=== PATIENT | female | born 1965 | race Caucasian/White ===

== ENCOUNTER 2024-08-17 16:13 | Inpatient (IN) | payer OTHER, SELFPAY ==
[2024-08-17] VITALS (16 sets, daily range): BP systolic 99–130; BP diastolic 61–92; BMI 27.5
--- NOTE | 2024-08-17 13:16 | ED.GENMED ---
ED Provider Triage
<Natasha Larsen CLOTH FINISHING [employer]ANGE BACK TENDER - Last Filed: 08/17/24 14:29>
-
Patient seen by provider in Triage?: Seen in Triage
Attestation: A medical screening examination has been initiated by a qualified medical provider. Based on the assessment performed at this time, it has been determined that an emergent medical condition may exist and the patient has been informed
that further medical evaluation and possible additional diagnostic testing may be needed.
HPI: 58-year-old female saw PCP 3 days ago for flulike symptoms, tested negative for COVID and flu. Has been on doxycycline 100 mg twice daily for the past 2 days for presumed pneumonia. Went to PCP for a follow-up visit, her 'oxygen levels were
low,' so she was sent here for evaluation.
Pulse ox 95% RA in triage.
2:20 p.m.
Labs back: Na 108 pt taken to room 26, NAD, remains stable.
GENERAL: Alert , in no apparent distress
EYE: No visual abnormalities.
NECK: Trachea midline
ENT: No visible abnormalities.
LUNGS: No acute respiratory distress
NEUROLOGICAL: Alert and oriented
SKIN: Skin intact. No visible changes.
MUSCULOSKELETAL: Moving extremities normally
PSYCH: Normal and appropriate interaction.
This is a medical evaluation conducted in person to initiate diagnostic evaluation and provide initial therapeutics. Please see further documentation by the treating clinician.
History of Present Illness
<Natasha Larsen CLOTH [employer] BACK TENDER - Last Filed: 08/17/24 14:29>
General
Chief Complaint: Breathing Problem
Time Seen by Provider: 08/17/24 14:39
<James Young PA-C - Last Filed: 08/19/24 11:37>
General
Source: patient
History of Present Illness
History of Present Illness:
58-year-old female with past medical history of hypertension, hyperlipidemia and recent pneumonia diagnosed by primary care provider presenting to the ER for at request of primary care provider for continued coughing, generalized weakness and
dizziness despite the medications provided. Patient still endorses a cough intermittently productive of a yellowish sputum, has not had any further fevers. Denies any history of similar. Patient does note she smokes about 1/2 pack/day and has for
at least 15+ years. No known sick contacts or recent travel. No other concerns presently
Past History
<James Young PA-C - Last Filed: 08/19/24 11:37>
Past History
ED Past Medical History: HTN and Hypercholesterolemia
ED Past Surgical History: None
Social History
Tobacco: Smoker
Alcohol: None
Drug: None
Personal:
Living: with family
Review of Systems
<James Young PA-C - Last Filed: 08/19/24 11:37>
Review of Systems
All Other Systems: ROS reviewed and negative except as documented in HPI and ROS
Phy Exam
<James Young PA-C - Last Filed: 08/19/24 11:37>
Physical Exam
Physical Exam:
GENERAL: Alert , in no apparent distress
HEAD: NCAT
EYE: clear conjunctiva
NECK: Supple
ENT: o/p clr, mmm.
CARDIAC: Regular rate and rhythm .
LUNGS: Harsh cough with rhonchorous lung sounds throughout, no acute respiratory distress
ABDOMEN: Soft, without focal tenderness, no r/g, no cvat
NEUROLOGICAL: Alert and oriented x 3, speech slow and sounds slurred. follows commands and moves all extremities
SKIN: Warm and dry, skin intact.
MUSCULOSKELETAL: No edema, well perfused.
PSYCH: Normal and appropriate interaction.
Scores
<James Young PA-C - Last Filed: 08/19/24 11:37>
Heart Failure Risk
Heart Failure Risk Score: Not Applicable
Heart Score for Chest Pain Patients
STEMI patient?: Not applicable
Withdrawal Assessment of Alcohol
Withdrawal Assessment Completed?: Not applicable
Course
<Natasha Larsen, CLOTH FIN[employer] BACK TENDER - Last Filed: 08/17/24 14:29>
Orders/Labs/Results
Orders:
Orders
08/17/24 Breakfast
Regular
At Your Request: Full Participation
Fluid Restriction: 1440 mL/day (48 oz)
08/17/24 13:19
CR Chest - 2 Views Urgent
Comment:
Reason For Exam: cough
08/17/24 13:24
Complete Blood Count/With Diff Urgent
Comprehensive Metabolic Panel Urgent
Magnesium Urgent
Comment: ADD ON
Phosphorus Urgent
Comment: ADD ON
08/17/24 14:39
Sputum Culture [Respiratory Culture/Gram Stain] Urgent
JLUIS Source: Sputum
Specimen Description:
08/17/24 14:41
Electrocardiogram (*1) Urgent
Reason for Study: Other
Other Reason for Exam: hyponatremia
EKG- Treatment ONCE
08/17/24 14:45
Potassium Chloride [KCl] 40 meq PO NOW STA
08/17/24 14:46
Add On- LAB Urgent
Tests Added?: mag, phosphorous
08/17/24 14:48
Potassium Chloride [KCl] 40 meq 0.9% Sodium Chloride 250 ml [Nss] 250 ml IV NOW
08/17/24 15:16
COVID-19 Antigen Urgent
Source: Nasal Swab
Serum Osmolality Urgent
Influenza A+B Rapid Molecular Urgent
JLUIS Source: Nasal Swab
Specimen Description:
08/17/24 15:51
Admit/Transfer Patient As Directed
Co-Sign Provider:
Level of Care: Inpatient admission
Assign to:: ICU
Physician / Group: Mulugeta Rosas
Diagnosis: Symptomatic Hyponatremia
Reason for Hospitalization: 3%NaCl
Expected length of stay greater than two midnights?: Yes
ELOS- Estimated Length of Stay in days: 3
I certify the patient meets the requirements for IP care: Yes
Potassium Chloride [KCl] 40 meq PO NOW STA
08/17/24 15:53
PRN Pain Medication Management As Directed
May give lesser potent ordered pain med per pt: Yes
preference::
Protocol:: Medication orders for pain may be administered in a
manner that supports deferring to patient preference
when the pt is:
- Requesting an ordered lesser potent pain medication.
Least to most potent pain medications are defined
as: acetaminophen < NSAID < tramadol < opioids
(morphine, oxycodone, hydromorphone).
- Requesting a lesser dose of the same medication IF
ORDERED.
- Requesting a less intrusive route of administration
if both routes are prescribed by the provider (PO <
IV).
08/17/24 15:55
Code Status As Directed
Resuscitation Status: Full Code
08/17/24 16:00
3% Sodium Chloride 250 ml [Sodium Chloride 3%] 250 ml IV ONCE
08/17/24 16:01
Magnesium Sulfate 2 Gram/50 ml [Magnesium Sulfate] 2 gram in 50 ml IV NOW
08/17/24 17:33
Acetaminophen [Tylenol] 650 mg PO Q4HPRN PRN
08/17/24 17:33
Homebirth Midwife Consult Routine
Consulting Provider: Maximilian Lester
Was physician already notified: Yes
NEPHROLOGY CONSULT Routine
Consulting Provider: Prosper Bae
Was physician already notified: Yes
Activity As Directed
Activity Level: Out of Bed-Early Mobility
With Assistance
Bladder Scan As Directed
Follow Bladder Retention/Intermittent Cath Algorithm?: Yes
PRN if no void in __ hours: 6
Frequency: Per Retention Algorithm
If Bladder Scan Result >: 400
then:: Straight cath
I&O [Intake/ Output] As Directed
Frequency: q12h
Straight Cath As Directed
Frequency: Per Retention Algorithm
Additional Instructions: straight cath as needed per acute urinary retention algorithm for 24 hrs
Additional Instructions: for bladder scan greater than 400 mL
Vital Signs As Directed
Frequency: Per unit guidelines
Weight As Directed
Frequency: Daily
Rx Incentive Spirometry [RESP] Routine
Frequency: q1h while awake
Rx Pep / Acapela [RESP] Routine
Smoking Cessation Counseling [RESP] Routine
DX Deep Vein Thrombosis Video Routine
08/17/24 18:00
Atorvastatin [Lipitor] 10 mg PO QPM
Enoxaparin Sodium [Lovenox] 40 mg SC QPM
LevoFLOXacin [Levaquin] 500 mg PO QPM
08/17/24 20:00
Atenolol [Tenormin] 50 mg PO BID
08/17/24 20:43
Urinalysis Reflex To Culture Urgent
Date Specimen was Collected: 08/17/24
Time Specimen was Collected: 20:33
Urine Osmolality Random [Osmolality, Random Urine] Urgent
Date Specimen was Collected: 08/17/24
Time Specimen was Collected: 20:33
Urine Sodium Urgent
Date Specimen was Collected: 08/17/24
Time Specimen was Collected: 20:33
Legionella Urinary Antigen Urgent
JLUIS Source: Urine
Specimen Description:
08/18/[address] Chest W/o Iv Contrast Routine
Reason For Exam: cough, hyponatremia, smoker
08/18/24 04:08
Complete Blood Count/No Diff IN AM
Cortisol, Random IN AM
TSH Reflex To Free T4 IN AM
08/18/24 08:00
Amlodipine [Norvasc] 10 mg PO DAILY
Lisinopril [Zestril] 40 mg PO DAILY
Abnormal Lab Results
08/17/24 08/17/24
13:24 15:16
WBC 13.3 H 10^3/uL
(4.8-10.8)
MCH 32.3 H pg
(27.0-31.0)
MCHC 38.7 H g/dL
(33.0-37.0)
RDW 11.2 L %
(11.5-14.5)
Abs Immat Gran (auto) 0.1 H 10^3/uL
(0-0.05)
Absolute Neuts (auto) 10.4 H 10^3/uL
(1.4-6.5)
Absolute Lymphs (auto) 1.0 L 10^3/uL
(1.2-3.4)
Absolute Monos (auto) 1.8 H 10^3/uL
(0.1-0.6)
Immature Gran % 0.6 H %
(0-0.5)
Neutrophils % 78.2 H %
(42.2-75.2)
Lymphocytes % 7.4 L %
(20.5-51.1)
Monocytes % 13.4 H %
(1.7-9.3)
Sodium 108 L* mmol/L
(135-145)
Potassium 2.6 L* mmol/L
(3.5-5.1)
Chloride 64 L mmol/L
(98-107)
Carbon Dioxide 34 H mmol/L
(22-30)
Glucose 134 H mg/dl
(70-99)
Serum Osmolality 233 L mOsm/kg
(275-300)
Magnesium 1.5 L mg/dl
(1.6-2.3)
AST 39 H U/L
(14-36)
ALT 44 H U/L
(0-35)
01/13/25 13:24
08/17/24 13:24
Vital Signs
Initial and Last Documented VS:
Initial Vital Signs
Temp Pulse Resp BP Pulse Ox
97.4 F 74 20 111/64 95
08/17/24 13:06 08/17/24 13:06 08/17/24 13:06 08/17/24 13:06 08/17/24 13:06
Last Documented Vital Signs
Temp Pulse Resp BP Pulse Ox
98.4 F 74 18 123/88 98
08/19/24 07:01 08/19/24 11:36 08/19/24 11:36 08/19/24 08:36 08/19/24 11:36
<James Young PA-C - Last Filed: 08/19/24 11:37>
Orders/Labs/Results
Orders:
Orders
08/17/24 Breakfast
Regular
At Your Request: Full Participation
Fluid Restriction: 1440 mL/day (48 oz)
08/17/24 13:19
CR Chest - 2 Views Urgent
Comment:
Reason For Exam: cough
08/17/24 13:24
Complete Blood Count/With Diff Urgent
Comprehensive Metabolic Panel Urgent
Magnesium Urgent
Comment: ADD ON
Phosphorus Urgent
Comment: ADD ON
08/17/24 14:39
Sputum Culture [Respiratory Culture/Gram Stain] Urgent
JLUIS Source: Sputum
Specimen Description:
08/17/24 14:41
Electrocardiogram (*1) Urgent
Reason for Study: Other
Other Reason for Exam: hyponatremia
EKG- Treatment ONCE
08/17/24 14:45
Potassium Chloride [KCl] 40 meq PO NOW STA
08/17/24 14:46
Add On- LAB Urgent
Tests Added?: mag, phosphorous
08/17/24 14:48
Potassium Chloride [KCl] 40 meq 0.9% Sodium Chloride 250 ml [Nss] 250 ml IV NOW
08/17/24 15:16
COVID-19 Antigen Urgent
Source: Nasal Swab
Serum Osmolality Urgent
Influenza A+B Rapid Molecular Urgent
JLUIS Source: Nasal Swab
Specimen Description:
08/17/24 15:51
Admit/Transfer Patient As Directed
Co-Sign Provider:
Level of Care: Inpatient admission
Assign to:: ICU
Physician / Group: Mulugeta Rosas
Diagnosis: Symptomatic Hyponatremia
Reason for Hospitalization: 3%NaCl
Expected length of stay greater than two midnights?: Yes
ELOS- Estimated Length of Stay in days: 3
I certify the patient meets the requirements for IP care: Yes
Potassium Chloride [KCl] 40 meq PO NOW STA
08/17/24 15:53
PRN Pain Medication Management As Directed
May give lesser potent ordered pain med per pt: Yes
preference::
Protocol:: Medication orders for pain may be administered in a
manner that supports deferring to patient preference
when the pt is:
- Requesting an ordered lesser potent pain medication.
Least to most potent pain medications are defined
as: acetaminophen < NSAID < tramadol < opioids
(morphine, oxycodone, hydromorphone).
- Requesting a lesser dose of the same medication IF
ORDERED.
- Requesting a less intrusive route of administration
if both routes are prescribed by the provider (PO <
IV).
08/17/24 15:55
Code Status As Directed
Resuscitation Status: Full Code
08/17/24 16:00
3% Sodium Chloride 250 ml [Sodium Chloride 3%] 250 ml IV ONCE
08/17/24 16:01
Magnesium Sulfate 2 Gram/50 ml [Magnesium Sulfate] 2 gram in 50 ml IV NOW
08/17/24 17:33
Acetaminophen [Tylenol] 650 mg PO Q4HPRN PRN
08/17/24 17:33
Homebirth Midwife Consult Routine
Consulting Provider: Maximilian Lester
Was physician already notified: Yes
NEPHROLOGY CONSULT Routine
Consulting Provider: Prosper Bae
Was physician already notified: Yes
Activity As Directed
Activity Level: Out of Bed-Early Mobility
With Assistance
Bladder Scan As Directed
Follow Bladder Retention/Intermittent Cath Algorithm?: Yes
PRN if no void in __ hours: 6
Frequency: Per Retention Algorithm
If Bladder Scan Result >: 400
then:: Straight cath
I&O [Intake/ Output] As Directed
Frequency: q12h
Straight Cath As Directed
Frequency: Per Retention Algorithm
Additional Instructions: straight cath as needed per acute urinary retention algorithm for 24 hrs
Additional Instructions: for bladder scan greater than 400 mL
Vital Signs As Directed
Frequency: Per unit guidelines
Weight As Directed
Frequency: Daily
Rx Incentive Spirometry [RESP] Routine
Frequency: q1h while awake
Rx Pep / Acapela [RESP] Routine
Smoking Cessation Counseling [RESP] Routine
DX Deep Vein Thrombosis Video Routine
08/17/24 18:00
Atorvastatin [Lipitor] 10 mg PO QPM
Enoxaparin Sodium [Lovenox] 40 mg SC QPM
LevoFLOXacin [Levaquin] 500 mg PO QPM
08/17/24 20:00
Atenolol [Tenormin] 50 mg PO BID
08/17/24 20:43
Urinalysis Reflex To Culture Urgent
Date Specimen was Collected: 08/17/24
Time Specimen was Collected: 20:33
Urine Osmolality Random [Osmolality, Random Urine] Urgent
Date Specimen was Collected: 08/17/24
Time Specimen was Collected: 20:33
Urine Sodium Urgent
Date Specimen was Collected: 08/17/24
Time Specimen was Collected: 20:33
Legionella Urinary Antigen Urgent
JLUIS Source: Urine
Specimen Description:
08/18/[address] Chest W/o Iv Contrast Routine
Reason For Exam: cough, hyponatremia, smoker
08/18/24 04:08
Complete Blood Count/No Diff IN AM
Cortisol, Random IN AM
TSH Reflex To Free T4 IN AM
08/18/24 08:00
Amlodipine [Norvasc] 10 mg PO DAILY
Lisinopril [Zestril] 40 mg PO DAILY
Abnormal Lab Results
08/17/24 08/17/24
13:24 15:16
WBC 13.3 H 10^3/uL
(4.8-10.8)
MCH 32.3 H pg
(27.0-31.0)
MCHC 38.7 H g/dL
(33.0-37.0)
RDW 11.2 L %
(11.5-14.5)
Abs Immat Gran (auto) 0.1 H 10^3/uL
(0-0.05)
Absolute Neuts (auto) 10.4 H 10^3/uL
(1.4-6.5)
Absolute Lymphs (auto) 1.0 L 10^3/uL
(1.2-3.4)
Absolute Monos (auto) 1.8 H 10^3/uL
(0.1-0.6)
Immature Gran % 0.6 H %
(0-0.5)
Neutrophils % 78.2 H %
(42.2-75.2)
Lymphocytes % 7.4 L %
(20.5-51.1)
Monocytes % 13.4 H %
(1.7-9.3)
Sodium 108 L* mmol/L
(135-145)
Potassium 2.6 L* mmol/L
(3.5-5.1)
Chloride 64 L mmol/L
(98-107)
Carbon Dioxide 34 H mmol/L
(22-30)
Glucose 134 H mg/dl
(70-99)
Serum Osmolality 233 L mOsm/kg
(275-300)
Magnesium 1.5 L mg/dl
(1.6-2.3)
AST 39 H U/L
(14-36)
ALT 44 H U/L
(0-35)
08/17/24 13:24
08/17/24 13:24
Vital Signs
Initial and Last Documented VS:
Initial Vital Signs
Temp Pulse Resp BP Pulse Ox
97.4 F 74 20 111/64 95
08/17/24 13:06 08/17/24 13:06 08/17/24 13:06 08/17/24 13:06 08/17/24 13:06
Last Documented Vital Signs
Temp Pulse Resp BP Pulse Ox
98.4 F 74 18 123/88 98
08/19/24 07:01 08/19/24 11:36 08/19/24 11:36 08/19/24 08:36 08/19/24 11:36
<Prosper Khan, - Last Filed: 08/18/24 10:03>
Orders/Labs/Results
Orders:
Orders
08/17/24 Breakfast
Regular
At Your Request: Full Participation
Fluid Restriction: 1440 mL/day (48 oz)
08/17/24 13:19
CR Chest - 2 Views Urgent
Comment:
Reason For Exam: cough
08/17/24 13:24
Complete Blood Count/With Diff Urgent
Comprehensive Metabolic Panel Urgent
Magnesium Urgent
Comment: ADD ON
Phosphorus Urgent
Comment: ADD ON
08/17/24 14:39
Sputum Culture [Respiratory Culture/Gram Stain] Urgent
JLUIS Source: Sputum
Specimen Description:
08/17/24 14:41
Electrocardiogram (*1) Urgent
Reason for Study: Other
Other Reason for Exam: hyponatremia
EKG- Treatment ONCE
08/17/24 14:45
Potassium Chloride [KCl] 40 meq PO NOW STA
08/17/24 14:46
Add On- LAB Urgent
Tests Added?: mag, phosphorous
08/17/24 14:48
Potassium Chloride [KCl] 40 meq 0.9% Sodium Chloride 250 ml [Nss] 250 ml IV NOW
08/17/24 15:16
COVID-19 Antigen Urgent
Source: Nasal Swab
Serum Osmolality Urgent
Influenza A+B Rapid Molecular Urgent
JLUIS Source: Nasal Swab
Specimen Description:
08/17/24 15:51
Admit/Transfer Patient As Directed
Co-Sign Provider:
Level of Care: Inpatient admission
Assign to:: ICU
Physician / Group: Mulugeta Rosas
Diagnosis: Symptomatic Hyponatremia
Reason for Hospitalization: 3%NaCl
Expected length of stay greater than two midnights?: Yes
ELOS- Estimated Length of Stay in days: 3
I certify the patient meets the requirements for IP care: Yes
Potassium Chloride [KCl] 40 meq PO NOW STA
08/17/24 15:53
PRN Pain Medication Management As Directed
May give lesser potent ordered pain med per pt: Yes
preference::
Protocol:: Medication orders for pain may be administered in a
manner that supports deferring to patient preference
when the pt is:
- Requesting an ordered lesser potent pain medication.
Least to most potent pain medications are defined
as: acetaminophen < NSAID < tramadol < opioids
(morphine, oxycodone, hydromorphone).
- Requesting a lesser dose of the same medication IF
ORDERED.
- Requesting a less intrusive route of administration
if both routes are prescribed by the provider (PO <
IV).
08/17/24 15:55
Code Status As Directed
Resuscitation Status: Full Code
08/17/24 16:00
3% Sodium Chloride 250 ml [Sodium Chloride 3%] 250 ml IV ONCE
08/17/24 16:01
Magnesium Sulfate 2 Gram/50 ml [Magnesium Sulfate] 2 gram in 50 ml IV NOW
08/17/24 17:33
Acetaminophen [Tylenol] 650 mg PO Q4HPRN PRN
08/17/24 17:33
Homebirth Midwife Consult Routine
Consulting Provider: Maximilian Lester
Was physician already notified: Yes
NEPHROLOGY CONSULT Routine
Consulting Provider: Prosper Bae
Was physician already notified: Yes
Activity As Directed
Activity Level: Out of Bed-Early Mobility
With Assistance
Bladder Scan As Directed
Follow Bladder Retention/Intermittent Cath Algorithm?: Yes
PRN if no void in __ hours: 6
Frequency: Per Retention Algorithm
If Bladder Scan Result >: 400
then:: Straight cath
I&O [Intake/ Output] As Directed
Frequency: q12h
Straight Cath As Directed
Frequency: Per Retention Algorithm
Additional Instructions: straight cath as needed per acute urinary retention algorithm for 24 hrs
Additional Instructions: for bladder scan greater than 400 mL
Vital Signs As Directed
Frequency: Per unit guidelines
Weight As Directed
Frequency: Daily
Rx Incentive Spirometry [RESP] Routine
Frequency: q1h while awake
Rx Pep / Acapela [RESP] Routine
Smoking Cessation Counseling [RESP] Routine
DX Deep Vein Thrombosis Video Routine
08/17/24 18:00
Atorvastatin [Lipitor] 10 mg PO QPM
Enoxaparin Sodium [Lovenox] 40 mg SC QPM
LevoFLOXacin [Levaquin] 500 mg PO QPM
08/17/24 20:00
Atenolol [Tenormin] 50 mg PO BID
08/17/24 20:43
Urinalysis Reflex To Culture Urgent
Date Specimen was Collected: 08/17/24
Time Specimen was Collected: 20:33
Urine Osmolality Random [Osmolality, Random Urine] Urgent
Date Specimen was Collected: 08/17/24
Time Specimen was Collected: 20:33
Urine Sodium Urgent
Date Specimen was Collected: 08/17/24
Time Specimen was Collected: 20:33
Legionella Urinary Antigen Urgent
JLUIS Source: Urine
Specimen Description:
08/18/[address] Chest W/o Iv Contrast Routine
Reason For Exam: cough, hyponatremia, smoker
08/18/24 04:08
Complete Blood Count/No Diff IN AM
Cortisol, Random IN AM
TSH Reflex To Free T4 IN AM
08/18/24 08:00
Amlodipine [Norvasc] 10 mg PO DAILY
Lisinopril [Zestril] 40 mg PO DAILY
Abnormal Lab Results
08/17/24 08/17/24
13:24 15:16
WBC 13.3 H 10^3/uL
(4.8-10.8)
MCH 32.3 H pg
(27.0-31.0)
MCHC 38.7 H g/dL
(33.0-37.0)
RDW 11.2 L %
(11.5-14.5)
Abs Immat Gran (auto) 0.1 H 10^3/uL
(0-0.05)
Absolute Neuts (auto) 10.4 H 10^3/uL
(1.4-6.5)
Absolute Lymphs (auto) 1.0 L 10^3/uL
(1.2-3.4)
Absolute Monos (auto) 1.8 H 10^3/uL
(0.1-0.6)
Immature Gran % 0.6 H %
(0-0.5)
Neutrophils % 78.2 H %
(42.2-75.2)
Lymphocytes % 7.4 L %
(20.5-51.1)
Monocytes % 13.4 H %
(1.7-9.3)
Sodium 108 L* mmol/L
(135-145)
Potassium 2.6 L* mmol/L
(3.5-5.1)
Chloride 64 L mmol/L
(98-107)
Carbon Dioxide 34 H mmol/L
(22-30)
Glucose 134 H mg/dl
(70-99)
Serum Osmolality 233 L mOsm/kg
(275-300)
Magnesium 1.5 L mg/dl
(1.6-2.3)
AST 39 H U/L
(14-36)
ALT 44 H U/L
(0-35)
08/17/24 13:24
08/17/24 13:24
Vital Signs
Initial and Last Documented VS:
Initial Vital Signs
Temp Pulse Resp BP Pulse Ox
97.4 F 74 20 111/64 95
08/17/24 13:06 08/17/24 13:06 08/17/24 13:06 08/17/24 13:06 08/17/24 13:06
Last Documented Vital Signs
Temp Pulse Resp BP Pulse Ox
98.4 F 74 18 123/88 98
08/19/24 07:01 08/19/24 11:36 08/19/24 11:36 08/19/24 08:36 08/19/24 11:36
<James Young PA-C - Last Filed: 08/19/24 11:37>
MDM/Problems Addressed
Differential Diagnosis Includes:
Patient has hyponatremia from labs ordered while in triage. SIADH versus malignancy versus infectious etiology versus medication interaction as patient is on hydrochlorothiazide
MDM/Problems Addressed:
58-year-old female presenting to the ER for evaluation of persistent cough and flulike symptoms x 1 week, no improvement with antibiotics and medications found today to have severe hyponatremia and hypokalemia while in triage. I added labs
including urine sodium, serum osmolality, Legionella antigen, sputum culture, COVID and flu testing. Will consult with nephrology for initiation of hypertonic saline. Will notify specialist team for admission.
<James Young PA-C - Last Filed: 08/19/24 11:37>
*Radiology
Radiology exam reviewed: radiology read reviewed
*Pulse Oximetry
Patient hypoxic: no
*EKG
Interpreted by ED Provider?: Yes
Heart Rate: 67
Rate: normal
Rhythm: sinus and PVC's
Interval: first degree heart block
Ischemia: T-wave inversion (Diffuse T wave inversions)
*It Web Development Consultant Interpretation
Rate: normal
Rhythm: sinus
*Critical Care Note
Total Time (30-74mins, 75-104mins- exclusive of procedures): 34
comment:
Critical care statement: A total of 34 minutes of critical care time was provided for this patient. This includes management of unstable vital signs, evaluation of the patient at bedside, reviewing the patient's pertinent medical records, discussion
with consultants, review of old EKGs and review of pertinent medical records. This time with separate from time utilized to perform the aforementioned documented procedures
<James Young PA-C - Last Filed: 08/19/24 11:37>
Patient Management
Discussion with other providers: Hospitalist and Teamsite Developer
Escalation/DeEscalation of care consider admission/obs:
[facility] Outcomes Liaison recommends 3% normal saline at 20 mL/h. They will come to the ER to see the patient. Hospitalist team accepts for continued evaluation and treatment
ED Attending Note
<Natasha Larsen NP - Last Filed: 08/17/24 14:29>
-
Portions of this chart may have been created with voice recognition software.� Occasional wrong word or��sound alike� substitutions may have occurred due to the inherent limitations of voice recognition software.
<Prosper Khan DO - Last Filed: 08/18/24 10:03>
ED Attending Note
I performed the substantive portion of visit, reviewed & personally made and approve the management plan that is documented in note by myself or SHIREEN.: Yes
ED Attending Note:
Profond hyponatremia. check urine NA/osm. consult renal. I did discss the case with renal. admit to ICU. 3%NSS
Discharge Plan
Departure
Patient Disposition: Admit
Date of Disposition: 08/17/24
Time of Disposition: 15:20
Presentation/result/management discussed w/ accepting MD/DO: Hospitalist
Discharge Problem:
Acute hyponatremia, Acute hypokalemia, Cough
Interventions
Interventions:
*Risk Screen - Suicide Last Done: 08/17/24 13:06
*General Assessment Last Done: 08/17/24 13:06
*Neglect/Abuse Screening Last Done: 08/17/24 13:06
ED- Fall Risk Assessment Last Done: 08/17/24 17:45
*ED COVID-19 Vaccine History Last Done: 08/17/24 17:43
*Nursing Disposition Last Done: 08/17/24 17:45
ED- Cardiac Assessment Last Done: 08/17/24 15:29
ED- Pulmonary Assessment Last Done: 08/17/24 15:29
Discharge Date and Time
Discharge Date/Time: 08/17/24 17:55
[2024-08-17 14:21] LABS: ALT (SGPT) 44 U/L (0-35); AST (SGOT) 39 U/L (14-36); Albumin 4.1 g/dl (3.5-5.0); Alkaline Phosphatase 82 U/L (38-126); Blood Urea Nitrogen 17 mg/dl (7-17); Calcium 9.6 mg/dl (8.4-10.2); Carbon Dioxide 34 mmol/L (22-30); Chloride 64 mmol/L (98-107); Glucose 134 mg/dl (70-99); Potassium 2.6 mmol/L (3.5-5.1); Sodium 108 mmol/L (135-145); Total Bilirubin 1.3 mg/dl (0.2-1.3); Total Protein 6.5 g/dl (6.3-8.2); eGFR > 60.00
[2024-08-17 14:55] LABS: % Basophils 0.2 % (0-2); % Eosinophils 0.2 % (0-6); % Immature Granulocytes 0.6 % (0-0.5); % Lymphocytes 7.4 % (20.5-51.1); % Monocytes 13.4 % (1.7-9.3); % Neutrophils 78.2 % (42.2-75.2); Absolute Immature Granulocytes 0.1 10^3/uL (0-0.05); Absolute Monocytes 1.8 10^3/uL (0.1-0.6); Absolute Neutrophils 10.4 10^3/uL (1.4-6.5); Hemoglobin 15.4 g/dL (12.0-16.0); Mean Corpuscular Hgb 32.3 pg (27.0-31.0); Mean Corpuscular Volume 83.4 fL (81.0-99.0); Mean Platelet Volume 9.1 fL (7.4-10.4); Nucleated Red Blood Cells % 0 %; Platelet Count 278 10^3/uL (130-400); Red Blood Cell Count 4.77 10^6/uL (4.20-5.40); Red Cell Dist. Width 11.2 % (11.5-14.5); White Blood Cell Count 13.3 10^3/uL (4.8-10.8)
[2024-08-17 14:56] LABS: Hematocrit 39.8 % (37.0-47.0); Mean Corp Hgb Conc. 38.7 g/dL (33.0-37.0)
[2024-08-17] MEDS: KCL 40 MEQ PO ×2 (15:31→20:38)
[2024-08-17] MEDS: KCL 270 MEQ IV (15:32)
[2024-08-17 15:41] LABS: Magnesium 1.5 mg/dl (1.6-2.3); Phosphorus 3.7 mg/dl (2.5-4.5)
[2024-08-17] MEDS: SODIUM CHLORIDE 3% 250 IV (15:50)
--- NOTE | 2024-08-17 15:50 | HPS.HSE ---
Family Physician
-
Family Physician:
Chief Complaint
-
Cough and Confusion
History of Present Illness
Patient is a 58 y/o female past medical history of hypertension, and hyperlipidemia who presents with persistent cough and confusion. Additional history is obtained from patient's at the bedside. Patient has been feeling unwell for the
past week. She reports notes cough that very moist sounding but only bringing up minimal mucus. She reports very poor appetite over the past week. She saw her PCP on who prescribed her antibiotics, steroids, cough medicine, and an
albuterol inhaler. Despite these interventions she continue with cough. has noted increasing confusion over the weekend. He notes patient has been complaining of dizziness and had a fall yesterday.
Medical History
Past Medical History
Past Medical History: Reports Other
Additional Past Medical History:
Essential Hypertension
Hyperlipidemia
Past Surgical History: Reports None
Social History
Tobacco: Smoker (1/2 PPD since age 16)
Alcohol: Daily (Glass of wine nightly)
Family History
Family History: Not pertinent
Allergies / Home Medications
Allergies reflects when Allergies were last updated in [facility].
Home Medications with original date entered in [facility]
Allergy/Medication List:
Allergies
Allergy/AdvReac Type Severity Reaction Status Date / Time
No Known Allergies Allergy Unverified 08/17/24 13:12
Home Medications
albuterol sulfate 90 mcg/actuation aerosol inhaler 2 puff inhalation R Q4HPRN PRN sob 08/17/24
amlodipine 10 mg tablet (Norvasc) 10 mg PO DAILY 08/17/24
atenolol 50 mg tablet 50 mg PO BID 08/17/24
atorvastatin 10 mg tablet (Lipitor) 10 mg PO QPM 08/17/24
codeine 10 mg-guaifenesin 100 mg/5 mL oral liquid 5 ml PO Q6HPRN PRN cough 08/17/24
doxycycline hyclate 100 mg capsule 100 mg PO QPM 08/17/24
hydrochlorothiazide 25 mg tablet 25 mg PO DAILY 08/17/24
lisinopril 40 mg tablet 40 mg PO DAILY 08/17/24
prednisone 10 mg tablet 40 mg PO DIRECTED 08/17/24
Review of Systems
-
A 12 point ROS was completed and negative except as noted: Yes
Constitutional: Denies Fever or Chills
Respiratory: Reports See HPI
Cardiac: Denies Chest Pain
Physical Exam
Vital Signs
Vital Signs
Temp Pulse Resp BP Pulse Ox
97.4 F 74 20 111/64 95
08/17/24 13:06 08/17/24 13:06 08/17/24 13:06 08/17/24 13:06 08/17/24 13:06
Physical Exam
General: Comfortable and Conversant (Sleep is slow which states is not her norm)
HEENT: Anicteric and Other (Mask covering nose and mouth)
Respiratory: Wheezes, Rhonchi and Non Labored Respirations
Cardiac: S1/S2 and Regular Rhythm
GI: Soft and Non Tender
Rectal: Deferred by Provider
Musculoskeletal: No Clubbing, No Cyanosis and No Edema
Skin: Warm and Dry
Neuro: Awake, Alert, Oriented, No Motor Deficits and Other (Speech is low but not slurred)
Psych: Calm
Laboratory Results
-
08/17/24 13:24
08/17/24 13:24
Laboratory Results
Total Bilirubin 1.3 mg/dl (0.2-1.3) 08/17/24 13:24
AST 39 U/L (14-36) H 08/17/24 13:24
ALT 44 U/L (0-35) H 08/17/24 13:24
Alkaline Phosphatase 82 U/L (38-126) 08/17/24 13:24
Data Reviewed
-
Diagnostic Radiology: Report Reviewed by me
Lab Data: Labs Reviewed by me
Impression/Plan
-
Acute/Severe Symptomatic Hyponatremia, likely related to HCTZ and possibly SIADH
-Admit to ICU for close monitoring and frequent blood work
-Consult Nephrology
-Continue 3% NaCl
-Check sodium q4h
-Continue fluid restriction
Acute/Severe Hypokalemia with Mild Hypomagnesemia
-Replace potassium and magnesium
-Recheck potassium later this evening
Acute Bronchitis
-Check CT scan to evaluate for possible pneumonia and possible underlying lung pathology
-Start Levaquin
-Continue albuterol
-Continue prednisone
-Continue Mucinex
Essential Hypertension
-Hold HCTZ
-Continue amlodipine, atenolol and lisinopril with hold parameters
Hyperlipidemia
-Continue atorvastatin
Tobacco Use Disorder
-Continue nicotine patch
-Encourage smoking cessation
DVT proph: Lovenox
Code Status: Full Code
--- NOTE | 2024-08-17 15:51 | W.PN.UPDATE ---
Update Note
Progress Note Update
I saw and examined the patient.
The ENGINEERING DRAWINGS CHECKER or PA's note was reviewed and I agree with the note.
Comment:
Ms. Santos is a 58-year-old female with medical history of hypertension, hyperlipidemia, longtime current smoker, and recent pneumonia (being treated with doxycycline) who presented from her PCP office due to hypoxia. She reports flulike symptoms
including productive cough for the past 3 days, and was started on doxycycline for presumptive pneumonia 2 days ago. She reportedly tested negative for COVID at that time. Her , who is at bedside, reports that her mentation has been
abnormal since her symptom onset and also reports the patient has had difficulty walking for the past 2 days. 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 However, patient's
reports that her hearing seems worse than usual over the past few days.
In the ED, she was normotensive and afebrile, and saturating appropriately on room air. Chest x-ray showed no evidence of pneumonia or other acute abnormalities. However, labs were significant for sodium of 108, potassium 2.6, WBC of 13,000. She
has been admitted for further evaluation and management of symptomatic hyponatremia.
Gen-AAOx3, NAD
HEENT-NC, AT, anicteric, clear oral mm
Neck-supple
CV-reg, no M, +S1/S2
Lungs-rhonchorous breath sounds B/L
Abd-soft, NT, ND
Musculoskeletal-no edema, no deformity
Skin-warm and dry
Neuro-mild dysarthria, no asymmetry
Psych-calm, cooperative
Symptomatic hyponatremia:
-Initial sodium 108 with symptoms of mild dysarthria and ambulatory dysfunction
-Discussed case with nephrology, starting patient on 3% NS
-Frequent BMP checks to monitor sodium levels, avoid rapid correction
-Hold home HCTZ and advised her to avoid further use of HCTZ
Upper respiratory infection:
-Patient subjectively congested, productive cough, treated with doxycycline for presumed pneumonia for 2 days prior to arrival
-No evidence of pneumonia on chest x-ray, will check CT chest especially considering history of smoking
-Start empirically on Levaquin considering possibility of Legionella, check urine Legionella antigen
-Collect sputum culture
Hypokalemia:
-We have p.o. and IV potassium supplementation
-Monitor potassium levels with BMP
CODE STATUS: Full code
--- NOTE | 2024-08-17 16:12 | CON.INTV ---
Consultation
Consultation Request
Date/Time Consultation Requested: 08/17/24
Date/Time Consultation Performed: 08/17/24
Requesting Provider: Jessica Perez
Performing Provider: Yessica Stacy MD
Reason for Consultation: Hypokalemia and Severe hyponatreami
Medical History
-
History of Present Illness:
The patient is a 58-year-old female with a PMH of HTN, HL and recent diagnosis of pneumonia (being treated with doxycycline). The patient presented to ER from her PCP office due to coughing and wheezing.She reported having productive cough for the
past 3 days, and was started on doxycycline for presumptive pneumonia 2 days ago.Her COVID test resulted negative. Her CBC showed leucocytosis and CMP result was significant for hyponatremia at 108 and hypokalemia at 2.6. Additionally, her Mg level
was found low at 1.5 and liver enzymes were mildly elevated. She was started on 3% of hypertonic saline IV, K 40 meq oral+40 meq IV and Mg 2 gram IV. Her chest X ray was not significant, Legionella urinary antigen test was ordered. She was
consulted to the hair colorist for a further evaluation and management of her severe hyponatremia.
Past Medical History
Past Medical History: HTN and Hypercholesterolemia
Past Surgical History: None
Social History
Tobacco: Smoker (1/2 PPD daily )
Alcohol: Daily (Glass of wine )
Living: With Family
Family History
Family History: Reviewed & Not Pertinent
Allergies / Home Medications
Allergies
Allergy/AdvReac Type Severity Reaction Status Date / Time
No Known Allergies Allergy Unverified 08/17/24 13:12
Home Medications
�Medication �Instructions �Recorded �Confirmed �Last Taken �Type
albuterol sulfate 90 mcg/actuation 2 puff inhalation R Q4HPRN PRN sob 08/17/24 08/17/24 Unknown History
aerosol inhaler
amlodipine 10 mg tablet (Norvasc) 10 mg PO DAILY 08/17/24 08/17/24 08/17/24 History
atenolol 50 mg tablet 50 mg PO BID 08/17/24 08/17/24 08/17/24 History
atorvastatin 10 mg tablet (Lipitor) 10 mg PO QPM 08/17/24 08/17/24 08/16/24 History
codeine 10 mg-guaifenesin 100 mg/5 5 ml PO Q6HPRN PRN cough 08/17/24 08/17/24 08/17/24 History
mL oral liquid
doxycycline hyclate 100 mg capsule 100 mg PO QPM 08/17/24 08/17/24 08/16/24 History
hydrochlorothiazide 25 mg tablet 25 mg PO DAILY 08/17/24 08/17/24 08/17/24 History
lisinopril 40 mg tablet 40 mg PO DAILY 08/17/24 08/17/24 08/17/24 History
prednisone 10 mg tablet 40 mg PO DIRECTED 08/17/24 08/17/24 08/16/24 History
Review of Systems
-
History Source: Patient
Constitutional: No Symptoms
Respiratory: Cough
Cardiac: No Symptoms
Abdomen/GI: No Symptoms
: No Symptoms
Musculoskeletal: No Symptoms
Skin: No Symptoms
Neuro: No Symptoms
Vitals / Labs / Diagnostic Testing
Vital Signs
Temp Pulse Resp BP Pulse Ox
97.4 F 74 20 111/64 95
08/17/24 13:06 08/17/24 13:06 08/17/24 13:06 08/17/24 13:06 08/17/24 13:06
Lab Data
08/17/24 13:24
Diagnostic Testing:
Physical Exam
-
HEENT: Normocephalic and Anicteric
Cardiovascular: S1/S2 and Regular Rhythm
Respiratory: Wheeze and Rhonchi
GI: Soft, Non Distended and Non Tender
Neurology: Awake, Alert, Oriented and No Motor Deficits
Skin: Warm and Dry
Assessment
-
Impression: The patient is a 58-year-old female who presented to ER today for an evaluation of having continued coughing, generalized weakness and dizziness despite the medications provided. Her chest X ray was not significant. Her CBC showed
leucocytosis and CMP result was significant for hyponatremia at 108 and hypokalemia at 2.6. Additionally, her Mg level was found low at 1.5 and liver enzymes were found mildly elevated.
#Acute/Severe Symptomatic Hyponatremia
-Possibly related to HCTZ vs possibly SIADH due PNA: Hold HCTZ
-Admit to ICU for close monitoring for electrolyte abnormality
-Continue 3% NaCl: Goal correction 6- 8 mEq/liter in the first 24 hours
-Follow serum sodium q4h
-Continue fluid restriction
-Monitor neurologic status closely-rapid correction can rarely leads to osmotic demyelination syndrome
-Check TSH
-Check cortisol
-Check urine osmolarity and sodium
-Chest x-ray is not significant
#Hypokalemia
-Was given have p.o. and IV potassium supplementation (40 meq oral+ 40 meq IV)
-Monitor potassium levels with BMP
#Hypomagnesemia
-Was given 2 gram IV at admission
-Will follow up daily
#Upper respiratory infection
-No evidence of pneumonia on chest x-ray, will check CT chest especially considering history of smoking
-Check urine Legionella antigen
-Collect sputum culture
#Other
-DVT prophylaxis recommended
-Early mobilization
CODE STATUS: Full code
--- NOTE | 2024-08-17 16:14 | CON.INTV ---
Consultation
Consultation Request
Date/Time Consultation Requested: 08/17/2024-4:30 PM
Date/Time Consultation Performed: 08/17/2024-5 PM
Requesting Provider: Hospitalist
Performing Provider: Dr. Lester
Reason for Consultation: Hyponatremia/critical care management
Medical History
-
Chief Complaint: Hyponatremia
History of Present Illness:
58-year-old female with history of hypertension hyperlipidemia recently evaluated for flulike symptoms who tested negative for COVID as well as influenza placed on doxycycline reevaluated for 'oxygen levels were low' and came to the emergency room
where pulse ox was 95% but was noted to have severe hyponatremia-sales operations coordinator consulted for severe hyponatremia/critical care management 08/17/2024. Patient somewhat confused, some mild shortness of breath, chronic cough, mostly nonproductive, no
chest pain, abdominal pain, leg swelling or focal weakness.
Past Medical History
Past Medical History: None (Hypertension. Hyperlipidemia. Cigarette smoker. Cataract. Obesity.)
Social History
Tobacco: Smoker
Alcohol: Daily (1 glass of wine nightly)
Drug: None
Personal:
Living: With Family
Occupational Exposures: No known asbestos exposure
Environmental Exposures: No known tuberculosis exposure
Family History
Family History: Reviewed & Not Pertinent
Allergies / Home Medications
Allergies
Allergy/AdvReac Type Severity Reaction Status Date / Time
No Known Allergies Allergy Unverified 08/17/24 13:12
Home Medications
�Medication �Instructions �Recorded �Confirmed �Last Taken �Type
albuterol sulfate 90 mcg/actuation 2 puff inhalation R Q4HPRN PRN sob 08/17/24 08/17/24 Unknown History
aerosol inhaler
amlodipine 10 mg tablet (Norvasc) 10 mg PO DAILY 08/17/24 08/17/24 08/17/24 History
atenolol 50 mg tablet 50 mg PO BID 08/17/24 08/17/24 08/17/24 History
atorvastatin 10 mg tablet (Lipitor) 10 mg PO QPM 08/17/24 08/17/24 08/16/24 History
codeine 10 mg-guaifenesin 100 mg/5 5 ml PO Q6HPRN PRN cough 08/17/24 08/17/24 08/17/24 History
mL oral liquid
doxycycline hyclate 100 mg capsule 100 mg PO QPM 08/17/24 08/17/24 08/16/24 History
hydrochlorothiazide 25 mg tablet 25 mg PO DAILY 08/17/24 08/17/24 08/17/24 History
lisinopril 40 mg tablet 40 mg PO DAILY 08/17/24 08/17/24 08/17/24 History
prednisone 10 mg tablet 40 mg PO DIRECTED 08/17/24 08/17/24 08/16/24 History
Review of Systems
-
Unable to Obtain full review of systems at this time due to: Other (Per HPI)
Vitals / Labs / Diagnostic Testing
Vital Signs
Temp Pulse Resp BP Pulse Ox
97.4 F 74 20 111/64 95
08/17/24 13:06 08/17/24 13:06 08/17/24 13:06 08/17/24 13:06 08/17/24 13:06
Lab Data
08/17/24 13:24
Diagnostic Testing:
Physical Exam
-
Exam:
Well-nourished and well-developed in no apparent distress
HEENT-atraumatic, normocephalic
Neck-supple, no JVD, no bruit
Heart-regular rate and rhythm-no murmurs, rubs or gallops
Chest-clear to auscultation, no wheezes, crackles
Back-no tenderness
Abdomen-soft, nontender, nondistended, no hepatosplenomegaly
Extremities-no cyanosis, clubbing, edema and good peripheral pulses
Integument-intact, no rashes, lesions or ecchymosis
Neurology-alert and oriented, nonfocal motor and sensory exam
Assessment
-
58-year-old female with history of hypertension hyperlipidemia recently evaluated for flulike symptoms who tested negative for COVID as well as influenza placed on doxycycline, steroids, cough medicine and albuterol reevaluated for 'oxygen levels
were low' and came to the emergency room with progressive confusion and dizziness where pulse ox was 95% but was noted to have severe hyponatremia-sales operations coordinator consulted for severe hyponatremia/critical care management 08/17/2024.
Severe symptomatic hyponatremia-serum sodium 108
Hypokalemia
Leukocytosis
Asthmatic bronchitis flare -acute
Persistent cough
Mild hyperglycemia
Hypomagnesemia
Transaminitis
Conditions present prior to admission:
Hypertension.
Hyperlipidemia.
Cigarette [id number]-[id number]-year-1/2 pack cigarettes daily for 35 years
Cataract.
Obesity.
Plan
Patient will be admitted to medical intensive care unit with severe symptomatic hyponatremia
Supplemental oxygen as needed
Aspiration precautions
Nebulizers if needed-currently not bronchospastic
Aspiration precautions
Consider inc steroids - sig wheezing - suspect asthma
Nebulizers
Mucolytics
Follow serum sodium level closely
3% saline-cautious administration
Goal correction 8 mEq/liter in the first 24 hours
Monitor neurologic status closely-rapid correction can rarely leads to osmotic demyelination syndrome
Nephrology evaluation
Diuretics and potential use of Samsca per nephrology
Check TSH
Check cortisol
Check urine osmolarity and sodium
Replace electrolytes
Hold hydrochlorothiazide
Check cultures
Emperic antibiotics
Follow liver functions
Trend troponin
Echocardiogram
Smoking cessation counseling
Nicotine patch
DVT prophylaxis
Early nutrition
Early mobilization
Outpatient pulmonary/sleep disorders [id number] low-dose lung cancer screening CT, smoking cessation counseling, PFTs, potential sleep study
Critical care statement: A total of 55 minutes of critical care time was provided for this patient today. This includes management of unstable vital signs, evaluation of the patient at bedside, reviewing the patient's pertinent medical records
including radiographs, microbiology, laboratory evaluations, and discussion with primary team, consultants, pharmacy, charge nurse, critical care nursing, and respiratory therapy.
Diagnostic data:
Chest x-ray 08/17/2024-mild decreased bilateral lung volumes, mild to moderate cardiomegaly
Data Reviewed
-
EKG: Report reviewed by me
Radiology: Image personally visualized and interpreted and Report reviewed by me
Medical Tests (Nuc Med, Echo etc): Report reviewed by me
Labs: Labs reviewed by me
Old Records: Reviewed
Critical Care Time (in minutes): 55
[2024-08-17 16:17] LABS: COVID-19 Antigen Negative (Negative)
[2024-08-17 16:24] LABS: Osmolality Serum 233 mOsm/kg (275-300)
[2024-08-17] MEDS: MAGNESIUM SULFATE 50 IV (16:48)
--- NOTE | 2024-08-17 17:45 | W.CON.NEPH ---
Consultation
-
Date/Time Consultation Requested: August 17, 2024 at 1 PM
Date/Time Consultation Performed: August 17, 2024 at 5 PM
Requesting Provider: miriam Perez PA-C
Performing Provider: Dr. Prosper Bae
Reason for Consultation: Hyponatremia
Medical History
-
Chief Complaint: Hyponatremia
History of Present Illness:
58-year-old female with medical history of hypertension, hyperlipidemia, longtime current smoker, and recent pneumonia (being treated with doxycycline) who presented from her PCP office due to hypoxia. She reports flulike symptoms including
productive cough for the past 3 days, and was started on doxycycline for presumptive pneumonia 2 days ago.
Renal consult for electrolyte abnormalities and severe hyponatremia of 108 and hypokalemia 2.6
Currently she is in the ICU no chest pain shortness of breath nausea or vomiting she is awake and alert she has a normal appetite she has had no change in her medication regimen lately she is on hydrochlorothiazide for blood pressure she has been on
that for quite some time.
Past Medical History
Hypertension, hyperlipidemia, tobacco use
Social History
Current everyday smoker no alcohol use
Tobacco: Smoker
Alcohol: Daily (1 drink per day)
Drug: None
Family History
Family History: Not Pertinent
Allergies / Home Medications
Allergy/AdvReac Type Severity Reaction Status Date / Time
No Known Allergies Allergy Unverified 08/17/24 13:12
�Medication �Instructions �Recorded �Confirmed �Type
albuterol sulfate 90 mcg/actuation 2 puff inhalation R Q4HPRN PRN sob 08/17/24 08/17/24 History
aerosol inhaler
amlodipine 10 mg tablet (Norvasc) 10 mg PO DAILY 08/17/24 08/17/24 History
atenolol 50 mg tablet 50 mg PO BID 08/17/24 08/17/24 History
atorvastatin 10 mg tablet (Lipitor) 10 mg PO QPM 08/17/24 08/17/24 History
codeine 10 mg-guaifenesin 100 mg/5 5 ml PO Q6HPRN PRN cough 08/17/24 08/17/24 History
mL oral liquid
doxycycline hyclate 100 mg capsule 100 mg PO QPM 08/17/24 08/17/24 History
hydrochlorothiazide 25 mg tablet 25 mg PO DAILY 08/17/24 08/17/24 History
lisinopril 40 mg tablet 40 mg PO DAILY 08/17/24 08/17/24 History
prednisone 10 mg tablet 40 mg PO DIRECTED 08/17/24 08/17/24 History
Review of Systems
-
No chest pain shortness of breath nausea or vomiting
All other systems: Negative unless noted
Physical Exam
Vital Signs
Vital Signs
Temp Pulse Resp BP Pulse Ox
97.4 F 65 15 113/92 95
08/17/24 13:06 08/17/24 16:45 08/17/24 16:45 08/17/24 16:00 08/17/24 16:45
Lab Results
WBC 13.3 10^3/uL (4.8-10.8) H 08/17/24 13:24
RBC 4.77 10^6/uL (4.20-5.40) 08/17/24 13:24
Hgb 15.4 g/dL (12.0-16.0) 08/17/24 13:24
Hct 39.8 % (37.0-47.0) 08/17/24 13:24
Plt Count 278 10^3/uL (130-400) 08/17/24 13:24
eGFR > 60.00 08/17/24 13:24
Phosphorus 3.7 mg/dl (2.5-4.5) 08/17/24 13:24
Albumin 4.1 g/dl (3.5-5.0) 08/17/24 13:24
Physical Exam
General no acute distress
HEENT no cephalic atraumatic extraocular muscle intact no scleral icterus no JVD neck supple
lungs clear to auscultation bilateral
heart regular S1-S2 positive
abdomen soft nontender positive bowel sounds
extremities no edema pulses present bilateral
Neurologically nonfocal alert and oriented x 3
Skin no lesions no abrasions no petechiae
Psych normal affect no bizarre behavior
Data Reviewed
-
Radiology: Image Personally Visualized and interpreted (No acute pathology)
Assessment/Plan
-
58-year-old female with medical history of hypertension, hyperlipidemia, longtime current smoker, and recent pneumonia (being treated with doxycycline) who presented from her PCP office due to hypoxia. She reports flulike symptoms including
productive cough for the past 3 days, and was started on doxycycline for presumptive pneumonia 2 days ago.
Renal consult for sodium of 108 and hypokalemia
Patient not taking NSAIDs per history no excessive alcohol she drinks 1 glass of wine daily
She drinks about 66 ounces of water per day intentional
Impression:
Hyponatremia/108
Hypokalemia.
Hypertension.
Chronic tobacco use= chest x-ray no nodules
Plan:
Urine indices ordered pending
ICU admission.
Fluid restriction.
Discontinue thiazide diuretic
Hypertonic saline at 20 cc/h.
Critical monitoring of urine output.
Admitting sodium 108
Every 4 BMP stat BMP now.
Avoid overcorrection 4-6 mill equivalents maximum for the first 24 hours.
Discussed with the critical nursing staff to please call with repeat blood work
Total Time Spent with Patient (in minutes): 33
[2024-08-17] MEDS: LOVENOX 40 MG SC (18:03)
[2024-08-17] MEDS: LIPITOR 10 MG PO (18:03)
[2024-08-17] MEDS: LEVAQUIN 500 MG PO (18:04)
[2024-08-17] MEDS: DELTASONE 40 MG PO (18:04)
--- NOTE | 2024-08-17 18:15 | PTCARENOTE ---
pt received from er- aox3, hard of hearing, nsr with 1st degree and pvcs on monitor. no complaints at this time. pt on room air, noted wheezes, nonproductive cough. nephrology md at bedside- labs sent as per order. bed alarm on, call billy within
reach. all safety precautions in place. pt educated about plan of care and fluid restriction- verbalized understanding. k rider, mag rider and 3%saline infusing as per order.
[2024-08-17 18:32] LABS: Troponin I < 0.012 ng/ml
--- NOTE | 2024-08-17 18:35 | PTCARENOTE ---
pt received from er- aox3, hard of hearing, pt with yandy fisher on monitor. no complaints at this time. pt on room air, noted wheezes, nonproductive cough. nephrology md at bedside- labs sent as per order. bed alarm on, call billy within reach. all
safety precautions in place. pt educated about plan of care and fluid restriction- verbalized understanding. k rider, mag rider and 3%saline infusing as per order.
[2024-08-17 19:03] LABS: Blood Urea Nitrogen 16 mg/dl (7-17); Calcium 9.4 mg/dl (8.4-10.2); Carbon Dioxide 32 mmol/L (22-30); Chloride 68 mmol/L (98-107); Estimated Creatinine Clearance 107 ml/min; Glucose 111 mg/dl (70-99); Potassium 3.3 mmol/L (3.5-5.1); Sodium 109 mmol/L (135-145); eGFR > 60.00
[2024-08-17] MEDS: MUCINEX 1200 MG PO (19:20)
[2024-08-17] MEDS: DUONEB 3 ML INH (19:54)
--- NOTE | 2024-08-17 20:00 | PTCARENOTE ---
Patient received in bed, AAOX3, [place], NSR with vent bigeminy, no edema noted. Lungs coarse with exp wheeze noted. Harsh cough noted. Ate dinner. #18 g in LAC, #20 g in right arm with 3% infusing as ordered, #20 g in right wrist with K+ rider
infusing. Plan of care discussed, bed alar engaged. Labs reviewed with Dr. Bae, order received.
[2024-08-17 20:52] LABS: Urine Albumin 1+ (Neg - Trace); Urine Bilirubin Negative (Negative); Urine Character Clear (Clear); Urine Color Yellow; Urine Glucose Negative (Negative); Urine Ketone Negative (Negative); Urine Leukocyte Negative (Negative); Urine Nitrite Negative (Negative); Urine Occult Blood Negative (Negative); Urine Urobilinogen 1+ (Neg - 1+)
[2024-08-17 20:59] LABS: Osmolality Urine 262 mOsm/kg (300-900)
[2024-08-17 21:02] LABS: Urine Bacteria Few (Negative); Urine Red Blood Cell 0-2 /HPF (0-2)
[2024-08-17 21:05] LABS: Urine Sodium 18 mmol/L (30-90)
[2024-08-17] MEDS: TENORMIN PO (21:31)
[2024-08-17] MEDS: TYLENOL 650 MG PO (23:18)
[2024-08-18] VITALS (13 sets, daily range): BP systolic 96–128; BP diastolic 59–78
[2024-08-18 00:32] LABS: Blood Urea Nitrogen 17 mg/dl (7-17); Calcium 9.1 mg/dl (8.4-10.2); Carbon Dioxide 33 mmol/L (22-30); Chloride 71 mmol/L (98-107); Estimated Creatinine Clearance 107 ml/min; Glucose 144 mg/dl (70-99); Potassium 3.4 mmol/L (3.5-5.1); Sodium 111 mmol/L (135-145); eGFR > 60.00
--- NOTE | 2024-08-18 00:59 | PTCARENOTE ---
Patient asleep, currently on 2L. labs reviewed with Dr. Bae. No changes in assessment
[2024-08-18 05:04] LABS: ALT (SGPT) 41 U/L (0-35); AST (SGOT) 37 U/L (14-36); Albumin 3.6 g/dl (3.5-5.0); Alkaline Phosphatase 76 U/L (38-126); Blood Urea Nitrogen 15 mg/dl (7-17); Calcium 8.9 mg/dl (8.4-10.2); Carbon Dioxide 31 mmol/L (22-30); Chloride 75 mmol/L (98-107); Direct Bilirubin 0.3 mg/dl (0.0-0.4); Estimated Creatinine Clearance 107 ml/min; Glucose 139 mg/dl (70-99); Magnesium 1.9 mg/dl (1.6-2.3); Potassium 3.6 mmol/L (3.5-5.1); Sodium 114 mmol/L (135-145); Total Bilirubin 1.3 mg/dl (0.2-1.3); Troponin I < 0.012 ng/ml; eGFR > 60.00
--- NOTE | 2024-08-18 05:04 | PTCARENOTE ---
Labs noted, 3% Na discontinued. No changes in assessment
[2024-08-18 05:24] LABS: Cortisol, Random 12.4 ug/dl; TSH Reflex To Free T4 0.15 uIU/ml (0.47-4.68)
[2024-08-18 05:53] LABS: Free T4 1.73 ng/dl (0.78-2.19)
[2024-08-18 06:25] LABS: Hematocrit 38.9 % (37.0-47.0); Hemoglobin 14.9 g/dL (12.0-16.0); Mean Corp Hgb Conc. 38.3 g/dL (33.0-37.0); Mean Corpuscular Hgb 32.8 pg (27.0-31.0); Mean Corpuscular Volume 85.7 fL (81.0-99.0); Mean Platelet Volume 9.2 fL (7.4-10.4); Platelet Count 282 10^3/uL (130-400); Red Blood Cell Count 4.54 10^6/uL (4.20-5.40); Red Cell Dist. Width 11.1 % (11.5-14.5); White Blood Cell Count 11.5 10^3/uL (4.8-10.8)
[2024-08-18] MEDS: DUONEB 3 ML INH ×4 (07:14→19:48)
[2024-08-18] MEDS: MUCINEX 1200 MG PO ×2 (07:33→19:53)
[2024-08-18] MEDS: ZESTRIL PO (07:34)
[2024-08-18] MEDS: TENORMIN PO (07:34)
[2024-08-18] MEDS: NORVASC PO (07:37)
--- NOTE | 2024-08-18 07:43 | W.PN.INTV ---
Today's Communication / Plan
Recommendations
Monitor serum sodium
Prednisone taper
Nebulizers
Increase activity
Outpatient pulmonary follow-up
If able to be weaned off 3% saline then transfer out of ICU-pulmonary will follow briefly with ongoing wheezing
Assessment
-
58-year-old female with history of hypertension hyperlipidemia recently evaluated for flulike symptoms who tested negative for COVID as well as influenza placed on doxycycline, steroids, cough medicine and albuterol reevaluated for 'oxygen levels
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
Severe symptomatic hyponatremia-serum sodium 108
Hypokalemia
Leukocytosis
Asthmatic bronchitis flare -acute
Persistent cough
Mild hyperglycemia
Hypomagnesemia
Transaminitis
Abnormal EKG
New onset atrial fibrillation
Pulmonary nodules
Abnormal CT chest
Conditions present prior to admission:
Hypertension.
Hyperlipidemia.
Cigarette ezyhnb-57-hepd-year-1/2 pack cigarettes daily for 35 years
Pulmonary nodules-2 x [address] 08/18/2024
Cataract.
Obesity.
Plan
Medically improved, mental status improved
Supplemental oxygen as needed-attempt to wean to room air
Aspiration precautions
Nebulizers if needed-currently not bronchospastic
Prednisone 40 mg-no change significant wheezing
Nebulizers continue
Mucolytics
CT chest 08/18/2024 reviewed-summarized below
Follow serum sodium level closely
3% saline-cautious administration-changed to normal saline
Goal correction 4-6 mEq/liter in the first 24 hours
Monitor neurologic status closely-rapid correction can rarely leads to osmotic demyelination syndrome
Nephrology evaluation ongoing-correspondence reviewed
Diuretics and potential use of Samsca per nephrology
TSH low and noted
Cortisol within normal range
Urine sodium low
Replace electrolytes
Continue to hold hydrochlorothiazide
Check cultures
Emperic antibiotics
Follow liver functions
Trend troponin
Echocardiogram pending
Cardiology evaluation recommended
Consider anticoagulation
Atrial fibrillation rate control
Smoking cessation counseling
Nicotine patch
DVT prophylaxis-on Lovenox
Early nutrition
Early mobilization
Reviewed with and 08/18/2024-joined us for multidisciplinary rounds
If able to come off 3% saline transfer to telemetry-pulmonary will continue to follow
Outpatient pulmonary/sleep disorders [id number] low-dose lung cancer screening CT, smoking cessation counseling, PFTs, potential sleep study, and pulmonary nodule follow-up
Critical care statement: A total of 40 minutes of critical care time was provided for this patient today. This includes management of unstable vital signs, evaluation of the patient at bedside, reviewing the patient's pertinent medical records
including radiographs, microbiology, laboratory evaluations, and discussion with primary team, consultants, pharmacy, charge nurse, critical care nursing, and respiratory therapy.
Diagnostic data:
Chest x-ray 08/17/2024-mild decreased bilateral lung volumes, mild to moderate cardiomegaly
CT chest 08/18/2024-mild bronchial wall thickening suggesting bronchitis, mild tree-in-bud pattern at the lung bases, mild groundglass opacifications concerning for developing pneumonia versus interstitial lung disease, 2 possible solid noncalcified
right lower lobe nodules measuring 2 mm
Subjective Dataa
Subjective Data
Date of Service:
Date of Service: August 18, 2024
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
Subjective:
More alert, some wheezing, cough, mostly nonproductive, no chest pain or abdominal pain
Review of Systems
General: Other (Per HPI)
Objective Data
Data Reviewed
Vital Signs / I&O / Oxygen:
Vital Signs
Temp Pulse Resp BP Pulse Ox
98.4 F 67 10 104/66 96
08/18/24 04:00 08/18/24 07:18 08/18/24 07:18 08/18/24 04:00 08/18/24 07:18
Intake and Output
08/17/24 08/18/24 08/19/24
06:59 06:59 06:59
Intake Total 680 / 680
Output Total 1600 / 1600
Balance -920 / -920
SaO2 96
Nasal Cannula flow liters per 2
minute
Physical Exam
General: Respiratory Distress (n) and Comfortable
HEENT: Normocephalic, Anicteric and Moist Mucous Membranes
Cardiovascular: Regular Rhythm
Respiratory: Clear (Prolonged expiratory time), Wheeze (Diffuse expiratory) and Crackles (n)
GI: Soft, Non Distended and Non Tender
Neurology: Awake, Alert and No Motor Deficits
Skin: Warm, Good Color, Cyanosis (n), Jaundice (n) and Rash (n)
Labs/Micro/Reports
Lab Data
08/18/24 04:08
Microbiology
08/17/24 15:16 Nasal Swab Influenza Types A & B (RENE) - Final
Negative for Influenza A & B, NAAT
Negative results must be combined with clinical observations
and patient history.
Nucleic Acid Amplification test (NAAT)performed on the
[employer] platform.
--- NOTE | 2024-08-18 08:05 | PTCARENOTE ---
pt received from previous rn- aox3, on 2lNC with wheezing. no complaints at this time. pt remains with nonproductive cough. nsr with 1st degree and pvcs on monitor. all safety precautions in place, bed alarm on and functioning. 1 assist to bedside
commode. call billy within reach. plan of care discussed with pt- verbalized understanding.
[2024-08-18 08:49] LABS: Blood Urea Nitrogen 13 mg/dl (7-17); Calcium 9.1 mg/dl (8.4-10.2); Carbon Dioxide 30 mmol/L (22-30); Chloride 77 mmol/L (98-107); Estimated Creatinine Clearance 107 ml/min; Glucose 128 mg/dl (70-99); Potassium 3.7 mmol/L (3.5-5.1); Sodium 116 mmol/L (135-145); eGFR > 60.00
[2024-08-18 08:52] LABS: Troponin I < 0.012 ng/ml
--- NOTE | 2024-08-18 10:12 | PTCARENOTE ---
Addendum entered by Yuni Summers RN 08/18/24 10:16:
pt asymptomatic, rate controlled
Original Note:
pt afib with Dr. Rupa fisher aware, cards consult. pt taken down to ct, poc discussed in rounds.
--- NOTE | 2024-08-18 10:43 | W.PN.NEPH.PH ---
Today's Communication / Plan
-
Normal saline started
Assessment/Plan
-
58-year-old female with medical history of hypertension, hyperlipidemia, longtime current smoker, and recent pneumonia (being treated with doxycycline) who presented from her PCP office due to hypoxia. She reports flulike symptoms including
productive cough for the past 3 days, and was started on doxycycline for presumptive pneumonia 2 days ago.
Renal consult for sodium of 108 and hypokalemia
Patient not taking NSAIDs per history no excessive alcohol she drinks 1 glass of wine daily
She drinks about 66 ounces of water per day intentional
Impression:
Hyponatremia/108
Hypokalemia.
Hypertension.
Chronic tobacco use= chest x-ray no nodules
Plan:
Urine indices ordered pending
ICU admission.
Fluid restriction.
Discontinue thiazide diuretic
.
Critical monitoring of urine output.
Admitting sodium 108> 116 appropriate correction
Every 4 BMP stat BMP now.
Status post 3% saline on hold
Fluid restrict
Urine sodium 18 not consistent with SIADH but rather low solute
Further history obtained from her and stated she has not eaten in about a week
She may drink more alcohol than reported but does not appear to be excessive
I will start her on normal saline
-
-
Date of Service: August 18, 2024
CC / HPI / ROS
-
Chief Complaint:
Hyponatremia shortness of breath
History of Present Illness:
Presenting sodium 108 clinically hypovolemic decreased solute
Improved to 116 with 3% saline
Review of Systems:
Cough
Mild shortness of breath
Labs
-
Labs:
WBC 11.5 10^3/uL (4.8-10.8) H 08/18/24 04:08
RBC 4.54 10^6/uL (4.20-5.40) 08/18/24 04:08
Hgb 14.9 g/dL (12.0-16.0) 08/18/24 04:08
Hct 38.9 % (37.0-47.0) 08/18/24 04:08
Plt Count 282 10^3/uL (130-400) 08/18/24 04:08
eGFR > 60.00 08/18/24 08:09
Phosphorus 3.7 mg/dl (2.5-4.5) 08/17/24 13:24
Albumin 3.6 g/dl (3.5-5.0) 08/18/24 04:08
Albumin Cancelled 08/18/24 04:08
Physical Exam
-
Vital Signs:
Vital Signs
Temp Pulse Resp BP Pulse Ox
97.9 F 76 15 124/78 100
08/18/24 07:59 08/18/24 10:00 08/18/24 10:00 08/18/24 10:00 08/18/24 10:00
Respiratory:: Bilateral: Coarse and Bilateral: Rhonchi
Lung Excursion:: Normal
Abdomen:: Soft
Bowel Sounds:: Normal
Extremity Edema:: None: Bilateral:
Pardo Catheter: No
--- NOTE | 2024-08-18 11:11 | W.PN.INTV ---
Today's Communication / Plan
Recommendations
-Hold on 3% NaCl was recommended by Nephrology
-Was started on NSS and will follow up BMP
-ECHO pending
Assessment
-
Assessment
Impression: The patient is a 58-year-old female with a PMH of hypertension and hyperlipidemia who presented to ER yesterday for an evaluation of having flulike symptoms who tested negative for COVID and influenza. Her chest X ray was not
significant. Her CBC showed leucocytosis. Her CMP result was significant for severe hyponatremia for 108 and hypokalemia for 2.6. Additionally, her Mg level was found low at 1.5 and liver enzymes were found mildly elevated. Copier Field Service Technician was
consulted for severe hyponatremia/critical care management on 08/17/2024. The patient`s EKG showed A-fib with premature complexes on admission and Troponin series was resulted negative. Cardiology consultation was ordered.
Severe symptomatic hyponatremia
Hypokalemia
Leukocytosis
Asthmatic bronchitis flare -acute
Persistent cough
Mild hyperglycemia
Hypomagnesemia
Atrial fibrillation
Transaminitis
Plan
#Severe Symptomatic Hyponatremia
-Possibly multifactorial: alcohol use+ low food intake recently+ Acute Bronchitis
HCTZ use- SIADH: Urine sodium 18 not consistent with SIADH and HCTZ use
Appreciated Nephrology input: Fluid restriction, Hold HCTZ use
-Admit to ICU for close monitoring for electrolyte abnormality
-Her Na level increased from 108 to 116 in 24 hours
-Holding on 3% NaCl was recommended by Nephrology and was started on NSS.
-Follow serum sodium q4h
-Monitor neurologic status closely-rapid correction can rarely leads to osmotic demyelination syndrome
-TSH level low at 0.15 and T4 is N: Seems Erythroid sick syndrome. needs follow up with her PCP.
-Cortisol level 12 N
#Hypokalemia
-Was given have p.o. and IV potassium supplementation (40 meq oral+ 40 meq IV) on 08/17/23
- K level 3.7 after replacement on 08/18
-Monitor potassium levels with BMP
#Acute bronchitis
-Chest CT: Mild bronchial wall thickening suggesting Bronchitis+ pulmonary nodules +opacities concerning for developing pneumonia versus interstitial lung disease
-Legionella antigen: negative, influenza and Covid negative
-Collect sputum culture pending
-Levaquin will be discontinued after today pm dose.
-continue prednisone tapering
-Supplemental oxygen as needed
-Nebulizers if needed-currently not bronchospastic
-Aspiration precautions
-Mucolytics
#Hypomagnesemia
-Was given 2 gram IV at admission
-Mg 1.9 on 08/18
-Will follow up daily
#Atrial fibrillation
-New diagnosis of unclear duration
-Trop negative x3
-Asymptomatic and has been on atenolol 50 mg p.o. BID as an outpatient
-Continue to atenolol was recommended by cardiology
-ECHO pending
#Transaminitis
-AST-ALT trended down slightly but still mildly elevated
#Other
- On DVT prophylaxis
CODE STATUS: Full code
Subjective Dataa
Subjective Data
Date of Service:
Date of Service: August 18, 2024
Chief Complaint: Copier Field Service Technician Follow Up
Subjective:
Patient`s talking speed get improved today comparing to yesterday. Her communication seems improved and is able to reply the questions faster. Her coughing and wheezing sounds improved comparing to yesterday.She still has mild shortness of breath.
Denies any history of asthma or cardiac problem. No chest pain, no lower extremity edema.
Review of Systems
General: Other (See HPI)
Cardiopulmonary: Cough and Wheezing
GI: Other (no pain, tolerating residuel diet )
Neuro: Other (Seems her confusion improved today )
Objective Data
Data Reviewed
Vital Signs / I&O / Oxygen:
Vital Signs
Temp Pulse Resp BP Pulse Ox
97.9 F 76 15 124/78 98
08/18/24 07:59 08/18/24 10:00 08/18/24 10:00 08/18/24 10:00 08/18/24 10:54
Intake and Output
08/17/24 08/18/24 08/19/24
06:59 06:59 06:59
Intake Total 680 / 680
Output Total 1600 / 1600 400 / 400
Balance -920 / -920 -400 / -400
SaO2 98
Nasal Cannula flow liters per 2
minute
Physical Exam
HEENT: Normocephalic and Anicteric
Cardiovascular: S1-S2 and Regular Rhythm
Respiratory: Wheeze
GI: Soft, Non Distended and Non Tender
Neurology: Awake, Alert, Oriented and AO x 3 (No focal weakness )
Skin: Warm and Dry
Labs/Micro/Reports
Lab Data
08/18/24 04:08
Microbiology
08/17/24 20:43 Urine Legionella Urinary Antigen - Final
Negative for Legionella pneumophila Serogroup 1 antigen.
A negative result does not rule out the possiblity of
Legionella infection due to other serogroups or species of
Legionella. Clinical correlation is recommended.
08/17/24 15:16 Nasal Swab Influenza Types A & B (RENE) - Final
Negative for Influenza A & B, NAAT
Negative results must be combined with clinical observations
and patient history.
Nucleic Acid Amplification test (NAAT)performed on the
[employer] platform.
--- NOTE | 2024-08-18 11:11 | CON.CAR ---
Addendum entered and electronically signed by Robert Ramírez MD 08/18/24 12:38:
I saw and examined the patient.
The Watch Dial Stoner's note was reviewed and I agree with the note.
Comment:
GEN: No distress, awake, Ox3
HEENT: supple, anicteric, mmm
LUNGS: bilat rhonchi
CV: Irreg, S1/S2, 1/6 syst LSB, no gallop
ABD: soft, BS+, NT/ND
EXT: No edema
NEURO: Gross non-focal
SKIN: No rash
Plan:
58-year-old female with past medical history of hypertension, hyperlipidemia, tobacco abuse presents with a fall, bronchitis, hyponatremia, hypokalemia and was found to have new onset atrial fibrillation with frequent PVCs.
[id number]-GIAu score is 2. Check echocardiogram.
Okay to continue atenolol. I discussed anticoagulation with her and she is agreeable to start Eliquis 5 mg p.o. twice daily.
Plan will be to treat bronchitis and correct electrolytes and then reassess. Hopefully she spontaneously converts back into sinus rhythm. If not, we will need to consider eventual PARISH/cardioversion.
Cont antibiotics
Blood pressure is improved. Continue lisinopril and amlodipine.
Original Note:
Consultation
Consultation Request
Date/Time Consultation Performed: 08/18/24
Requesting Provider: Dr. Stacy, resident
Performing Provider: Merle Hernandez PA-C for Dr. Ramírez
Reason for Consultation: afib
Medical History
-
Chief Complaint: flu like symptoms
History of Present Illness:
Patient is a 58 yo F with PMH of HTN, HLD, ongoing tobacco use who presented to after ~1 week of flu like symptoms. She reports generalized fatigue, several days of fever, cough. She had been seen by PCP and was being treated for 'mild PNA' with
doxycycline, prednisone, and albuterol without improvement. noted confusion and patient had a fall so came to ER and was admitted with significant electrolyte issues (hyponatremia, hypokalemia, hypomagnesemia). Reports OP HCTZ is not a new
medicine, has been on this chronically for years. Cardiology consulted for afib and PVCs in pattern of bigeminy. She denies history of personal cardiac issues in past, however states her father has significant afib issues. She denies feelings of
palpitations, chest discomfort. Does report some continued SOB and wheezing. Denies history of bleeding issues. Flu, covid, and legionella negative. Smokes 10 cigarettes daily and drinks 1-2 glasses of wine daily. On atenolol 50mg BID.
PMH:
HTN
HLD
Chronic cerumen impaction/KOBUK
Ongoing tobacco use
Past Medical History
Past Medical History: Other (in HPI)
Social History
Tobacco: Smoker
Alcohol: Daily (1-2 glasses of wine daily)
Personal:
Living: With Family
Employment: Employed
Family History
Family History: Other (afib in father)
Allergies / Home Medications
Allergy/AdvReac Type Severity Reaction Status Date / Time
No Known Allergies Allergy Unverified 08/17/24 13:12
�Medication �Instructions �Recorded �Confirmed �Type
albuterol sulfate 90 mcg/actuation 2 puff inhalation R Q4HPRN PRN sob 08/17/24 08/17/24 History
aerosol inhaler
amlodipine 10 mg tablet (Norvasc) 10 mg PO DAILY 08/17/24 08/17/24 History
atenolol 50 mg tablet 50 mg PO BID 08/17/24 08/17/24 History
atorvastatin 10 mg tablet (Lipitor) 10 mg PO QPM 08/17/24 08/17/24 History
codeine 10 mg-guaifenesin 100 mg/5 5 ml PO Q6HPRN PRN cough 08/17/24 08/17/24 History
mL oral liquid
doxycycline hyclate 100 mg capsule 100 mg PO QPM 08/17/24 08/17/24 History
hydrochlorothiazide 25 mg tablet 25 mg PO DAILY 08/17/24 08/17/24 History
lisinopril 40 mg tablet 40 mg PO DAILY 08/17/24 08/17/24 History
prednisone 10 mg tablet 40 mg PO DIRECTED 08/17/24 08/17/24 History
Review of Systems
-
History Source: Patient and Family
All other systems: Negative unless noted
Physical Exam
Vital Signs
Temp Pulse Resp BP Pulse Ox
97.9 F 76 15 124/78 98
08/18/24 07:59 08/18/24 10:00 08/18/24 10:00 08/18/24 10:00 08/18/24 10:54
Lab Results
08/18/24 04:08
Troponin I < 0.012 ng/ml 08/18/24 08:09
Physical Exam
General: No Apparent Distress and Comfortable
HEENT: Normocephalic, Anicteric and Moist Mucous Membranes
Respiratory: Wheezes and Non Labored Respirations
Cardiac: S1/S2 and Irregular Rhythm
GI: Soft, Non Tender, Non Distended and Normal Bowel Sounds
Musculoskeletal: No Clubbing, No Cyanosis and No Edema
Skin: Warm and Dry
Neuro: AO x 3
Impression / Plan
-
Primary Director Integrated: none prior to admission
Assessment:
Presentation with confusion, fall
Symptomatic hyponatremia
Hypokalemia
Hypomagnesemia
Atrial fibrillation, new diagnosis of unclear duration
PNA vs bronchitis
Transaminitis
HTN
HLD
Chronic cerumen impaction/KOBUK
Ongoing tobacco use
Daily ETOH (1-2 glasses of wine daily)
Low TSH
Pulm nodules
ECHO 08/18/24: pending
Plan:
-Patient presented to [facility] for evaluation of flulike symptoms and confusion with fall. chest CT with evidence of bronchitis vs PNA and pulm nodules
-Noted to have significant electrolyte abnormalities including a sodium of 108, potassium of 2.6, magnesium of 1.5. Ongoing correction. holding OP HCTZ
-Cardiology consulted as appears to have rate controlled atrial fibrillation on review of EKG/telemetry, which is new diagnosis for patient of unclear duration. She is asymptomatic. She is on atenolol 50 mg p.o. twice daily as an outpatient
-also with frequent PVCs at times in pattern of bigeminy. continue OP atenolol. aim to keep K>4 and mag>2
-Check echo
-TSH low with compensated free T4. defer treatment to primary service
-[id number] score of 2 for female, HTN. we discussed OAC, would consider starting
-hopefully patient spontaneously converts to SR as continues to improve/electrolytes corrected
-continue pulm treatment per continuing education instructor
-trop negative x3
-tobacco/ETOH cessation
-d/w patient and at bedside
-d/w nursing
Data Reviewed
-
EKG: Tracing Personally Visualized and interpreted
CT Scan: Report Reviewed by me
Medical Tests (Nuc Med, Echo etc): Report Reviewed by me
Labs: Labs Reviewed by me
Old Records: Reviewed
[2024-08-18] MEDS: NSS 1000 IV ×2 (11:39→23:54)
--- NOTE | 2024-08-18 11:59 | CM ---
CM following rte: discharger planning.
Reviewed pt's chart, met with pt and pt's at bedside.
Pt is a 58 year old [facility] female, admitted with primary dx of Acute/Severe Symptomatic Hyponatremia.
Pt reports she lives with 2SH, 1 step to enter, has no children. 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 No DME, VN or SNF history.
PCP: [facility]
Pharmacy: [facility]
D/C plan: home with anticipated no needs. to transport at discharge.
CM will follow with discharge plan updates as hospitalization progresses
--- NOTE | 2024-08-18 12:31 | W.PN.HOSP.TC ---
Today's Communication/Plan
-
Continue frequent BMPs to monitor serum electrolyte levels
Monitor telemetry for conversion to normal sinus rhythm
Assessment / Plan
Assessment / Plan
Gen-AAOx3, NAD
HEENT-NC, AT, anicteric, boggy nasal mucosa
Neck-supple
CV-reg, no M, +S1/S2
Lungs-rhonchorous breath sounds B/L
Abd-soft, NT, ND
Musculoskeletal-no edema, no deformity
Skin-warm and dry
Neuro-mild dysarthria, no asymmetry
Psych-calm, cooperative
Ms. Santos is a 58-year-old female with medical history of hypertension, hyperlipidemia, longtime current smoker, and recent pneumonia (treated with doxycycline) who presented from her PCP office due to hypoxia. She reports flulike symptoms
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 She reportedly tested negative for COVID at that time. Her reports that her mentation has been abnormal since her symptom onset
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 Patient also complains of nasal congestion and difficulty hearing.
In the ED, she was normotensive and afebrile, and saturating appropriately on room air. Chest x-ray showed no evidence of pneumonia or other acute abnormalities. However, labs were significant for sodium of 108, potassium 2.6, WBC of 13,000. She
was been admitted for further evaluation and management of symptomatic hyponatremia.
Symptomatic hyponatremia:
-Serum sodium level correcting appropriately over the past 24 hours, hypertonic saline held overnight for sodium of 114, now restarted fluids with isotonic saline per nephrology recommendations
-Continue fluid restriction
-Frequent BMP checks to monitor sodium levels
-Hold home HCTZ and advised her to avoid further use of HCTZ
-Urine sodium consistent with SIADH
Upper respiratory infection:
-CT chest shows possible developing pneumonia
-Continue antibiotics for now with Levaquin, Legionella urinary antigen negative so could switch to another agent if needed such as cefuroxime
-Follow-up sputum culture
New onset A-fib:
-No known history of A-fib, etiology may be acute illness with severe electrolyte derangements
-Currently rate controlled
-Cardiology following, would recommend starting OAC if does not convert to NSR, will discuss with patient
-Continue telemetry monitoring and treat underlying illness and electrolyte derangements
-Low TSH with normal free T4, will recommend repeat thyroid function studies in the outpatient setting after treatment of acute illness
Hypokalemia:
-Improved since admission, will give 40 mill equivalents p.o. today
-Monitor potassium levels with BMP and continue to replete as needed
Transaminitis:
-Mild, possibly related to acute illness versus alcohol use
-Will monitor for now
Tobacco abuse:
-Encourage cessation, nicotine patch provided
Pulmonary nodules:
-CT chest finding of 2 small noncalcified right lower lobe nodules measuring 2 mm each, recommend continued outpatient surveillance considering looking history
CODE STATUS: Full code
Anticipated Discharge: 24 - 48 hours
Subjective/Interval History
-
Date of Service: August 18, 2024
Ms. Santos was seen and examined at bedside this morning. She reports feeling about the same as when she was first admitted. Complains of severe upper respiratory congestion. She developed rate controlled A-fib since admission which is a new
diagnosis for her. Cardiology is now following.
Objective Data
-
Labs:
Laboratory Results
08/18/24 08/18/24 08/18/24
00:07 04:08 04:08
WBC 11.5 H
Hgb 14.9
Hct 38.9
Plt Count 282
Sodium 111 L* 114 L*
Potassium 3.4 L 3.6
Chloride 71 L 75 L
Carbon Dioxide 33 H 31 H
BUN 17 15
Creatinine 0.5 L 0.5 L
Glucose 144 H 139 H
Calcium 9.1 8.9
Total Bilirubin Cancelled 1.3
AST Cancelled
ALT
Alkaline Phosphatase
08/18/24 08/18/24 08/18/24
04:08 04:08 04:08
WBC
Hgb
Hct
Plt Count
Sodium
Potassium
Chloride
Carbon Dioxide
BUN
Creatinine
Glucose
Calcium
Total Bilirubin
AST 37 H
ALT Cancelled 41 H
Alkaline Phosphatase Cancelled 76
08/18/24 08/18/24 08/18/24
07:43 08:09 11:49
WBC
Hgb
Hct
Plt Count
Sodium Cancelled 116 L* Pending
Potassium Cancelled 3.7 Pending
Chloride Cancelled 77 L Pending
Carbon Dioxide Cancelled 30 Pending
BUN Cancelled 13 Pending
Creatinine Cancelled 0.5 L Pending
Glucose Cancelled 128 H Pending
Calcium Cancelled 9.1 Pending
Total Bilirubin
AST
ALT
Alkaline Phosphatase
Vital Signs:
Vital Signs
Temp Pulse Resp BP Pulse Ox
97.4 F 73 16 113/69 98
08/18/24 11:38 08/18/24 12:00 08/18/24 11:37 08/18/24 11:46 08/18/24 11:37
I&O
08/17/24 08/18/24 08/19/24
06:59 06:59 06:59
Intake Total 680 / 680
Output Total 1600 / 1600 400 / 400
Balance -920 / -920 -400 / -400
Review of Systems
-
History Source: Patient
EENT: Reports Hearing Loss and Other (Nasal congestion)
Respiratory: Reports Cough
Physical Exam
-
General: No Apparent Distress
Data Reviewed
-
CT Scan: Report Reviewed by me
Labs: Labs Reviewed by me
[2024-08-18 12:36] LABS: Blood Urea Nitrogen 15 mg/dl (7-17); Calcium 9.2 mg/dl (8.4-10.2); Carbon Dioxide 29 mmol/L (22-30); Chloride 77 mmol/L (98-107); Estimated Creatinine Clearance 107 ml/min; Glucose 137 mg/dl (70-99); Potassium 3.3 mmol/L (3.5-5.1); Sodium 117 mmol/L (135-145); eGFR > 60.00
[2024-08-18] MEDS: KCL 40 MEQ PO ×2 (12:53→17:30)
--- NOTE | 2024-08-18 16:13 | PTCARENOTE ---
labs discussed with Dr. Bae and Dr. Dutton throughout shift. report given to 4E RN. pt wheelchaired with all belongings, at bedside and aware.
[2024-08-18 16:14] LABS: Blood Urea Nitrogen 14 mg/dl (7-17); Calcium 9.4 mg/dl (8.4-10.2); Carbon Dioxide 32 mmol/L (22-30); Chloride 78 mmol/L (98-107); Estimated Creatinine Clearance 107 ml/min; Glucose 154 mg/dl (70-99); Potassium 3.5 mmol/L (3.5-5.1); Sodium 118 mmol/L (135-145); eGFR > 60.00
--- NOTE | 2024-08-18 16:17 | PTCARENOTE ---
labs report to Dr. Madhu Burns 1600.
[2024-08-18] MEDS: LEVAQUIN 500 MG PO (17:23)
[2024-08-18] MEDS: DELTASONE 30 MG PO (17:23)
[2024-08-18] MEDS: LIPITOR 10 MG PO (17:23)
--- NOTE | 2024-08-18 18:37 | PTCARENOTE ---
Received patient from ICU AAOx3. Pt oriented to room. IVF infusing without difficulty. Pt ambulated to bathroom with steady gait an assistance x1. Offered no complaints. Made patient comfortable. Cont to assess patient status.
[2024-08-18] MEDS: ELIQUIS 5 MG PO (19:53)
[2024-08-18] MEDS: TENORMIN 50 MG PO (19:53)
[2024-08-18 23:50] LABS: Blood Urea Nitrogen 14 mg/dl (7-17); Calcium 9.2 mg/dl (8.4-10.2); Carbon Dioxide 31 mmol/L (22-30); Chloride 84 mmol/L (98-107); Estimated Creatinine Clearance 107 ml/min; Glucose 173 mg/dl (70-99); Potassium 4.4 mmol/L (3.5-5.1); Sodium 122 mmol/L (135-145); eGFR > 60.00
[2024-08-19 04:09] VITALS: BP 131/84
[2024-08-19 05:11] LABS: ALT (SGPT) 41 U/L (0-35); AST (SGOT) 33 U/L (14-36); Albumin 3.7 g/dl (3.5-5.0); Alkaline Phosphatase 94 U/L (38-126); Blood Urea Nitrogen 11 mg/dl (7-17); Calcium 9.1 mg/dl (8.4-10.2); Carbon Dioxide 30 mmol/L (22-30); Chloride 85 mmol/L (98-107); Estimated Creatinine Clearance 107 ml/min; Glucose 132 mg/dl (70-99); Magnesium 1.8 mg/dl (1.6-2.3); Phosphorus 2.2 mg/dl (2.5-4.5); Potassium 4.2 mmol/L (3.5-5.1); Sodium 124 mmol/L (135-145); Total Bilirubin 0.7 mg/dl (0.2-1.3); Total Protein 6.2 g/dl (6.3-8.2); eGFR > 60.00
[2024-08-19 05:30] VITALS: BMI 27.6
[2024-08-19 07:01] VITALS: BP 118/74
[2024-08-19] MEDS: DUONEB 3 ML INH ×4 (07:38→19:39)
[2024-08-19 08:29] LABS: Blood Urea Nitrogen 10 mg/dl (7-17); Calcium 9.2 mg/dl (8.4-10.2); Carbon Dioxide 28 mmol/L (22-30); Chloride 87 mmol/L (98-107); Estimated Creatinine Clearance 107 ml/min; Glucose 121 mg/dl (70-99); Potassium 4.1 mmol/L (3.5-5.1); Sodium 124 mmol/L (135-145); eGFR > 60.00
[2024-08-19] MEDS: TENORMIN 50 MG PO ×2 (08:36→20:37)
[2024-08-19] MEDS: ELIQUIS 5 MG PO ×2 (08:39→20:38)
[2024-08-19] MEDS: NORVASC 10 MG PO (08:39)
[2024-08-19] MEDS: ZESTRIL 40 MG PO (08:39)
[2024-08-19] MEDS: MUCINEX 1200 MG PO ×2 (08:39→20:37)
[2024-08-19] MEDS: NEUTRA-PHOS POWDER PACKET 250 MG PO ×4 (08:40→21:04)
--- NOTE | 2024-08-19 09:43 | W.PN.PUL3 ---
Addendum entered and electronically signed by Dilan Jones MD 08/19/24 22:09:
Total time spent today was 58 minutes for this encounter. Time includes reviewing laboratory test/imaging results, reviewing pertinent medical records, obtaining and reviewing medical history, performing an appropriate exam, ordering medications,
tests and procedures. Time also includes documentation of this encounter, coordinating patient care and communicating with other healthcare professionals. Total time does not include separately billed tests performed on this date of service.
Original Note:
Today's Communication / Plan
-
Trend sNa
Stop crystalloids infusion today
Nephro consulted and recs appreciated
Continue Eliquis per cardiology
Continue ABx and would give total of 7 days ABx assuming she continues to clinically improve and remains afebrile for 48 hrs prior to stopping
Wean down O2 while keeping SpO2>90%
If resting SpO2<96% on room air, then check walking pulse oximetry prior to discharge
DuoNebs + mucinex
DC home on Symbicort 160mcg or an equivalent inhaler, and use until we see her in the office
prn chest PT
Prednisone taper
Outpatient pulmonary follow up
Pulmonary service will continue to briefly follow along
Assessment
-
58-year-old female with history of hypertension hyperlipidemia recently evaluated for flulike symptoms who tested negative for COVID as well as influenza placed on doxycycline, steroids, cough medicine and albuterol reevaluated for 'oxygen levels
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
Impression:
Acute respiratory failure with hypoxia due to bronchiolitis with asthma exacerbation
Acute asthmatic bronchitis due to above
Severe symptomatic hyponatremia-serum sodium 108 - now improved with Na 124 as of 08/19/2024-hyponatremia likely due to poor appetite (reported over ~1 week)
Hypokalemia - resolved
Leukocytosis
Persistent cough
Mild hyperglycemia - now euglycemic
Hypomagnesemia - resolved
Transaminitis
Abnormal EKG
New onset atrial fibrillation
Pulmonary nodules
Abnormal CT chest
Abnormal TFTs with low TSH (0.15) and normal fT4 - likely due to acute illness causing TSH suppression
Conditions present prior to admission:
Hypertension.
Hyperlipidemia.
Cigarette [id number]-14-uprj-year-1/2 pack cigarettes daily for 35 years
Pulmonary nodules-2 x [address] 08/18/2024
Cataract.
Obesity.
Plan
Medically improved, mental status improved
Supplemental oxygen as needed-attempt to wean to room air while keeping SpO2 >90%
Check home O2 assessment prior to discharge
Aspiration precautions
DuoNebs QID with prn doses for breakthrough symptoms
Prednisone [address] chest 08/18/2024 reviewed-summarized below --> recommend repeating Ct chest in 4-6 weeks to assure abnormalities resolve
Continue to trend sNa
Nephrology consulted
NS to be stopped today
s/p 3%
Avoid over-correction with goal improvement <8-10mmol/L in 24 hrs, and <16-18 mmol/L in 48 hrs
Monitor neurologic status closely-rapid correction can rarely leads to osmotic demyelination syndrome
Repeat TFTs in 4-6 weeks - defer to her PCP
Cortisol level 12.4 on AM of 08/18/2024
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
Replace electrolytes to keep K>4, Mg>2
Continue to hold hydrochlorothiazide
Legionella urine Ag negative
Would check sputum Cx if she can produce a decent sample
Trend WBC and monitor for fevers
Empiric antibiotics --> currently on cefuroxime s/p levaquin x 2 doses
Trend liver functions
Troponin negative x3
Echocardiogram on 08/18/2024 showed preserved LVEF at 55-60% w/ no regional WMA seen,moderately dilated RA with mild-moderate TR and normal PASP (25-30mmHg)
Cardiology evaluation recommended
Continue Eliquis (started 08/18/2024)
Atrial fibrillation rate control with goal HR<110
Smoking cessation counseling
Nicotine patch - pt refusing - I will DC
DVT prophylaxis-Eliquis
Early nutrition
Early mobilization
Reviewed with and 08/18/2024-joined us for multidisciplinary rounds
Outpatient pulmonary/sleep disorders [id number] low-dose lung cancer screening CT, smoking cessation counseling, PFTs, potential sleep study, and pulmonary nodule follow-up
Pulmonary service will continue to briefly follow along, and outpatient follow up will be arranged.
Diagnostic data:
Chest x-ray 08/17/2024-mild decreased bilateral lung volumes, mild to moderate cardiomegaly
CT chest 08/18/2024-mild bronchial wall thickening suggesting bronchitis, mild tree-in-bud pattern at the lung bases, mild groundglass opacifications concerning for developing pneumonia versus interstitial lung disease, 2 possible solid noncalcified
right lower lobe nodules measuring 2 mm
Subjective Data
-
Date of Service:
Date of Service: August 19, 2024
Chief Complaint: Pulmonary Follow Up
Subjective:
Pt seen this AM. , Todd, at bedside. He says that she is much more awake and alert now, which is a big improvement compared to when she was first hospitalized. She still has 'slowed' speech, but she is no longer confused. She denies SOB
or cough. She mainly endorses clogged ears with redued hearing. She denies nasal congestion. She denies chest pain, SALVADOR, abd pain, N/V/f/c.
Review of Systems
General: Other (negative unless mentioned above)
Objective Data
Data Reviewed
Vital Signs / I&O / Oxygen:
Vital Signs
Temp Pulse Resp BP Pulse Ox
98.2 F 69 18 122/64 98
08/19/24 11:38 08/19/24 11:38 08/19/24 11:38 08/19/24 11:38 08/19/24 11:38
Intake and Output
08/18/24 08/19/24 08/20/24
06:59 06:59 06:59
Intake Total 680 / 680 1340 / 1340
Output Total 1600 / 1600 400 / 400
Balance -920 / -920 940 / 940
SaO2 98
Nasal Cannula flow liters per 2
minute
Physical Exam
General: Respiratory Distress (negative), Comfortable, Chills (negative) and Sweats (negative)
HEENT: Normocephalic and Anicteric
Cardiovascular: Irregular Rhythm, Rub (negative) and Peripheral Edema (negative)
Respiratory: Wheeze (Posterior RUL), Crackles (negative), Rhonchi (negative) and Non-Labored Respirations
GI: Soft, Non Distended, Non Tender and Normal Bowel Sounds
Neurology: Awake, Alert and Tremors (negative)
Skin: Warm, Dry, Cyanosis (negative) and Jaundice (negative)
Labs/Micro/Reports
Lab Data
08/18/24 04:08
08/19/24 07:45
Microbiology
08/17/24 20:43 Urine Legionella Urinary Antigen - Final
Negative for Legionella pneumophila Serogroup 1 antigen.
A negative result does not rule out the possiblity of
Legionella infection due to other serogroups or species of
Legionella. Clinical correlation is recommended.
08/17/24 15:16 Nasal Swab Influenza Types A & B (RENE) - Final
Negative for Influenza A & B, NAAT
Negative results must be combined with clinical observations
and patient history.
Nucleic Acid Amplification test (NAAT)performed on the
[employer] platform.
--- NOTE | 2024-08-19 11:13 | PN.CDI ---
CDI
- -
CDI:
Physician Documentation Request
Admit Date: 08/17/24 16:13
Dear Doctor Alison,
Clinical Indicators:
Patient admitted with symptomatic hyponatremia.
08/17 Update note, 'Her , who is at bedside, reports that her mentation has been abnormal since her symptom onset and also reports the patient has had difficulty walking for the past 2 days....mild dysarthria'
08/18 Clinical Laboratory Technician PN, '...mental status improved'
Based on the above, could you clarify in the Progress Notes which, if any of the following, is the most likely etiology of the confusion/altered mental status.
Acute Metabolic Encephalopathy due to hyponatremia
Acute Delirium due to hyponatremia
Other, please specify
Use of terms such as suspected, likely, concern for, or probable (associated with a specific diagnosis that is being evaluated, monitored, or treated as if it exists) are acceptable and can be coded in the inpatient setting, when documented at the
time of discharge.
Thank you,
Roula Tan RN BSN
CDI Specialist
available via tiger text
Please use your independent medical judgment in providing your response.
[2024-08-19 11:38] VITALS: BP 122/64
[2024-08-19] MEDS: NSS 1000 IV (12:30)
--- NOTE | 2024-08-19 12:54 | W.PN.CARDCBS ---
Addendum entered and electronically signed by Robert Ramírez MD 08/19/24 16:53:
I saw and examined the patient.
The Prizer Hand's note was reviewed and I agree with the note.
Comment:
GEN: No distress, awake, Ox3
HEENT: supple, anicteric, mmm
LUNGS: + rhonchi
CV: Irreg, S1/S2, 1/6 syst LSB, no gallop
ABD: soft, BS+, NT/ND
EXT: No edema
NEURO: Gross non-focal
SKIN: No rash
Plan:
Remains in A-fib and rate controlled. Continue atenolol and Eliquis. LVEF is preserved.
Hyponatremia is improving.
Will arrange follow-up. If remains in A-fib at follow-up would at that point consider cardioversion. Will sign off.
Original Note:
Today's Communication / Plan
-
continue atenolol, eliquis
if remains in afib at OP office visit will consider for OP CV
will arrange OP cardiac follow up
will plan to sign off
Impression / Plan
-
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
Assessment:
Presentation with confusion, fall
Symptomatic hyponatremia
Hypokalemia
Hypomagnesemia
Atrial fibrillation, new diagnosis of unclear duration
PNA vs bronchitis
Transaminitis
HTN
HLD
Chronic cerumen impaction/CONFEDERATED COOS
Ongoing tobacco use
Daily ETOH (1-2 glasses of wine daily)
Low TSH
Pulm nodules
ECHO 08/18/24: EF 55 to 60%, mild concentric LVH, moderately dilated RA, mild to moderate TR, PAP 25 to 30 mmHg
Plan:
-Diagnosed with new A-fib on admission, asymptomatic. Remains rate controlled on review of telemetry.
-continue atenolol 50mg BID
-started on eliquis 5mg BID
-echo with results as above, discussed with patient and family at bedside
-Noted to have significant electrolyte abnormalities including a sodium of 108, potassium of 2.6, magnesium of 1.5. Ongoing correction. holding OP HCTZ
-TSH low with compensated free T4. defer treatment to primary service
-hopefully patient spontaneously converts to SR as continues to improve/electrolytes corrected. if remains in afib at time of office visit, would consider for OP CV
-tobacco/ETOH cessation
-will arrange OP cardiac follow up
-will plan to sign off.
Progress Note - Manufacturing Automation Engineer
Subjective
Date of Service: August 19, 2024
denies palpitations.
Objective
Labs:
08/18/24 04:08
08/19/24 07:45
Labs
Hgb 14.9 g/dL (12.0-16.0) 08/18/24 04:08
Hct 38.9 % (37.0-47.0) 08/18/24 04:08
Plt Count 282 10^3/uL (130-400) 08/18/24 04:08
Sodium 124 mmol/L (135-145) L 08/19/24 07:45
Potassium 4.1 mmol/L (3.5-5.1) 08/19/24 07:45
BUN 10 mg/dl (7-17) 08/19/24 07:45
Creatinine 0.5 mg/dL (0.6-1.0) L 08/19/24 07:45
Glucose 121 mg/dl (70-99) H 08/19/24 07:45
Troponins
08/17/24 08/18/24 08/18/24
18:00 04:08 08:09
Troponin I < 0.012 < 0.012 < 0.012
Vital Signs and I&O:
Vital Signs
Temp Pulse Resp BP Pulse Ox
98.2 F 69 18 122/64 98
08/19/24 11:38 08/19/24 11:38 08/19/24 11:38 08/19/24 11:38 08/19/24 11:38
Vital Signs
Temp Pulse Resp BP Pulse Ox
98.2 F 69 18 122/64 98
08/19/24 11:38 08/19/24 11:38 08/19/24 11:38 08/19/24 11:38 08/19/24 11:38
Intake & Output
08/17/24 08/18/24 08/19/24 08/20/24
07:59 07:59 07:59 07:59
Intake Total 680 / 680 1340 / 1340
Output Total 1600 / 1600 400 / 400
Balance -920 / -920 940 / 940
Physical Exam
Physical Exam
GEN: No distress, awake, alert, oriented x3. on supp O2
HEENT: supple, anicteric, mmm, eomi
LUNGS: CTA B/L, no wheezes
CV: Irreg, S1/S2, no murmur
ABD: soft, BS+, NT/ND
EXT: No cyanosis, clubbing, edema
NEURO: Gross non-focal
SKIN: Warm, pink, dry. No rash
[2024-08-19 15:03] VITALS: BP 123/67
--- NOTE | 2024-08-19 15:20 | W.PN.HOSP.TC ---
Addendum entered and electronically signed by Mulugeta Rosas DO 08/20/24 07:59:
Correction:
Plan should note that urine sodium is not consistent with SIADH
Original Note:
Today's Communication/Plan
-
Continue to monitor A-fib on telemetry
Assessment / Plan
Assessment / Plan
Gen-AAOx3, NAD
HEENT-NC, AT, anicteric, boggy nasal mucosa
Neck-supple
CV-reg, no M, +S1/S2
Lungs-clear breath sounds B/L
Abd-soft, NT, ND
Musculoskeletal-no edema, no deformity
Skin-warm and dry
Neuro-mild dysarthria, no asymmetry
Psych-calm, cooperative
Ms. Santos is a 58-year-old female with medical history of hypertension, hyperlipidemia, longtime current smoker, and recent pneumonia (treated with doxycycline) who presented from her PCP office due to hypoxia. She reports flulike symptoms
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 She reportedly tested negative for COVID at that time. Her reports that her mentation has been abnormal since her symptom onset
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 Patient also complains of nasal congestion and difficulty hearing.
In the ED, she was normotensive and afebrile, and saturating appropriately on room air. Chest x-ray showed no evidence of pneumonia or other acute abnormalities. However, labs were significant for sodium of 108, potassium 2.6, WBC of 13,000. She
was been admitted for further evaluation and management of symptomatic hyponatremia.
Symptomatic hyponatremia:
-Serum sodium levels improving at appropriate rate, sodium was 124 on labs this morning
-Continue fluid restriction
-Frequent BMP checks to monitor sodium levels
-Hold home HCTZ and advised her to avoid further use of HCTZ
-Urine sodium consistent with SIADH
Metabolic encephalopathy:
-Secondary to severe hyponatremia
-Resolving, appears to be at baseline mental status
Upper respiratory infection:
-CT chest shows possible developing pneumonia
-Continue antibiotics with cefuroxime, Legionella antigen negative
-Follow-up sputum culture
New onset A-fib:
-No known history of A-fib, etiology may be acute illness with severe electrolyte derangements
-Currently rate controlled, continuing home atenolol
-Started on Eliquis
-Continue telemetry monitoring and treat underlying illness and electrolyte derangements
-Low TSH with normal free T4, will recommend repeat thyroid function studies in the outpatient setting after treatment of acute illness
-Will need outpatient cardiology follow-up
Hypokalemia:
-Resolved
-Monitor potassium levels with BMP and continue to replete as needed
Transaminitis:
-Mild, possibly related to acute illness versus alcohol use
-Improving, will monitor for now
Tobacco abuse:
-Encourage cessation, nicotine patch provided
Pulmonary nodules:
-CT chest finding of 2 small noncalcified right lower lobe nodules measuring 2 mm each, recommend continued outpatient surveillance considering looking history
CODE STATUS: Full code
Anticipated Discharge: 24 - 48 hours
Subjective/Interval History
-
Date of Service: August 19, 2024
Ms. Santos was seen and examined at bedside this morning. She continues to improve clinically. However she continues to be severely congested which is affecting her hearing. Her cough continues to be productive of yellow sputum.
Objective Data
-
Labs:
Laboratory Results
08/19/24 08/19/24
04:26 07:45
Sodium 124 L 124 L
Potassium 4.2 4.1
Chloride 85 L 87 L
Carbon Dioxide 30 28
BUN 11 10
Creatinine 0.5 L 0.5 L
Glucose 132 H 121 H
Calcium 9.1 9.2
Total Bilirubin 0.7
AST 33
ALT 41 H
Alkaline Phosphatase 94
Vital Signs:
Vital Signs
Temp Pulse Resp BP Pulse Ox
98.2 F 69 18 122/64 98
08/19/24 11:38 08/19/24 11:38 08/19/24 11:38 08/19/24 11:38 08/19/24 11:38
I&O
08/18/24 08/19/24 08/20/24
06:59 06:59 06:59
Intake Total 680 / 680 1340 / 1340
Output Total 1600 / 1600 400 / 400
Balance -920 / -920 940 / 940
Review of Systems
-
History Source: Patient
All other systems: Reviewed and negative
EENT: Reports Hearing Loss and Other (Nasal congestion)
Respiratory: Reports Cough
--- NOTE | 2024-08-19 16:04 | W.PN.NEPH.PH ---
Today's Communication / Plan
-
Observe on fluid restriction
No more normal saline after current bag completed
Follow BMP
Assessment/Plan
-
58-year-old female with medical history of hypertension, hyperlipidemia, longtime current smoker, and recent pneumonia (being treated with doxycycline) who presented from her PCP office due to hypoxia. She reports flulike symptoms including
productive cough for the past 3 days, and was started on doxycycline for presumptive pneumonia 2 days ago.
Renal consult for sodium of 108 and hypokalemia
Patient not taking NSAIDs per history no excessive alcohol she drinks 1 glass of wine daily
She drinks about 66 ounces of water per day intentional
Impression:
Hyponatremia/108
Hypokalemia.
Hypertension.
Chronic tobacco use= chest x-ray no nodules
Plan:
Serum sodium level at 124 (acceptable rise over past three days)
Fluid restriction to continue
Discontinued thiazide diuretic on admission
No more 3% at this time
I would hold off further normal saline after current bag completed
Further history previously obtained from her and stated she has not eaten in about a week
She may drink more alcohol than reported but does not appear to be excessive
-
-
Date of Service: August 19, 2024
CC / HPI / ROS
-
Chief Complaint:
Hyponatremia shortness of breath
History of Present Illness:
Presenting sodium 108 clinically hypovolemic decreased solute
Improved to 124 with normal saline there was no appreciable change
Hemodynamically stable
Review of Systems:
Cough
Mild shortness of breath
Fatigue and lethargic
Labs
-
Labs:
WBC 11.5 10^3/uL (4.8-10.8) H 08/18/24 04:08
RBC 4.54 10^6/uL (4.20-5.40) 08/18/24 04:08
Hgb 14.9 g/dL (12.0-16.0) 08/18/24 04:08
Hct 38.9 % (37.0-47.0) 08/18/24 04:08
Plt Count 282 10^3/uL (130-400) 08/18/24 04:08
Sodium 124 mmol/L (135-145) L 08/19/24 07:45
Potassium 4.1 mmol/L (3.5-5.1) 08/19/24 07:45
Chloride 87 mmol/L (98-107) L 08/19/24 07:45
Carbon Dioxide 28 mmol/L (22-30) 08/19/24 07:45
BUN 10 mg/dl (7-17) 08/19/24 07:45
Creatinine 0.5 mg/dL (0.6-1.0) L 08/19/24 07:45
eGFR > 60.00 08/19/24 07:45
Glucose 121 mg/dl (70-99) H 08/19/24 07:45
Calcium 9.2 mg/dl (8.4-10.2) 08/19/24 07:45
Phosphorus 2.2 mg/dl (2.5-4.5) L 08/19/24 04:26
Albumin 3.7 g/dl (3.5-5.0) 08/19/24 04:26
Physical Exam
-
Vital Signs:
Vital Signs
Temp Pulse Resp BP Pulse Ox
97.5 F 75 18 123/67 100
08/19/24 15:03 08/19/24 15:55 08/19/24 15:55 08/19/24 15:03 08/19/24 15:55
Respiratory:: Bilateral: Coarse and Bilateral: Rhonchi
Lung Excursion:: Normal
Abdomen:: Soft
Bowel Sounds:: Normal
Extremity Edema:: None: Bilateral:
Pardo Catheter: No
[2024-08-19] MEDS: LIPITOR 10 MG PO (17:24)
[2024-08-19] MEDS: DELTASONE 30 MG PO (17:24)
[2024-08-19 19:55] VITALS: BP 141/87
[2024-08-19] MEDS: CEFTIN 500 MG PO (20:37)
[2024-08-19 23:30] VITALS: BP 126/83
[2024-08-19] MEDS: OCEAN, SALINE MIST 2 SPRAYS NASAL (23:47)
--- NOTE | 2024-08-20 03:22 | PTCARENOTE ---
Patient removed panel monitor and 3 IV sites. When RN asked patient why, she stated, 'I'm just done'. Educated patient on importance of keeping heart monitor on and not pulling out IVs. Ongoing plan of care reviewed with patient. Patient
agreeable and states 'for tonight I won't pull anything else off'.
[2024-08-20 03:45] VITALS: BP 127/65
[2024-08-20 07:23] VITALS: BP 146/90
[2024-08-20] MEDS: DUONEB INH (08:13)
[2024-08-20] MEDS: ELIQUIS 5 MG PO (08:37)
[2024-08-20] MEDS: CEFTIN 500 MG PO (08:37)
[2024-08-20] MEDS: ZESTRIL 40 MG PO (08:37)
[2024-08-20] MEDS: OCEAN, SALINE MIST NASAL (08:37)
[2024-08-20] MEDS: TENORMIN 50 MG PO (08:37)
[2024-08-20] MEDS: NORVASC 10 MG PO (08:37)
[2024-08-20] MEDS: MUCINEX 1200 MG PO (08:37)
[2024-08-20] MEDS: NEUTRA-PHOS POWDER PACKET 250 MG PO ×2 (08:37→11:50)
--- NOTE | 2024-08-20 08:53 | W.PN.PUL3 ---
Today's Communication / Plan
-
Trend sNa
Nephro consulted and recs appreciated
Continue Eliquis per cardiology
Continue ABx and would give total of 7 days ABx assuming she continues to clinically improve and remains afebrile for 48 hrs prior to stopping
Wean down O2 while keeping SpO2>90%
DuoNebs + mucinex
DC home on Symbicort 160mcg or an equivalent inhaler, and use until we see her in the office
prn chest PT
Prednisone taper reducing by 10mg every 4th day until off (currently on 30mg daily)
Outpatient pulmonary follow up
Patient is doing well, and being prepared for discharge home. No additional recommendations at this time. Pulmonary service will now sign off. Please reconsult if there are any additional questions/concerns, or if patient's respiratory status
deteriorates.
Assessment
-
58-year-old female with history of hypertension hyperlipidemia recently evaluated for flulike symptoms who tested negative for COVID as well as influenza placed on doxycycline, steroids, cough medicine and albuterol reevaluated for 'oxygen levels
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
Impression:
Acute respiratory failure with hypoxia due to bronchiolitis with asthma exacerbation
Acute asthmatic bronchitis due to above
Severe symptomatic hyponatremia-serum sodium 108 - now improved with Na 129 as of 08/19/2024-hyponatremia likely due to poor appetite (reported over ~1 week)
Hypokalemia - resolved
Leukocytosis
Persistent cough
Mild hyperglycemia - now euglycemic
Hypomagnesemia
Transaminitis
Abnormal EKG
New onset atrial fibrillation
Pulmonary nodules
Abnormal CT chest
Abnormal TFTs with low TSH (0.15) and normal fT4 - likely due to acute illness causing TSH suppression
Conditions present prior to admission:
Hypertension.
Hyperlipidemia.
Cigarette [id number]-year-1/2 pack cigarettes daily for 35 years
Pulmonary nodules-2 x [address] 08/18/2024
Cataract.
Obesity.
Plan
Medically improved, mental status back to baseline
She is now off of oxygen and on room air, saturating 96%
Aspiration precautions
DuoNebs QID with prn doses for breakthrough symptoms --> DC home on prn albuterol MDI
Prednisone 40 mg with taper by 10mg every 4th day until off
Mucolytics
CT chest 08/18/2024 reviewed-summarized below --> recommend repeating Ct chest in 4-6 weeks to assure abnormalities resolve
Continue to trend sNa
Nephrology consulted
NS to be stopped yesterday
s/p 3%
Avoid over-correction with goal improvement <8-10mmol/L in 24 hrs, and <16-18 mmol/L in 48 hrs
Monitor neurologic status closely-rapid correction can rarely leads to osmotic demyelination syndrome
Repeat TFTs in 4-6 weeks - defer to her PCP
Cortisol level 12.4 on AM of 08/18/2024
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
Replace electrolytes to keep K>4, Mg>2
Continue to hold hydrochlorothiazide
Legionella urine Ag negative
Would check sputum Cx if she can produce a decent sample
Trend WBC and monitor for fevers
Empiric antibiotics --> currently on cefuroxime s/p levaquin x 2 doses - would complete a 5-7 day course
Trend liver functions
Troponin negative x3
Echocardiogram on 08/18/2024 showed preserved LVEF at 55-60% w/ no regional WMA seen,moderately dilated RA with mild-moderate TR and normal PASP (25-30mmHg)
Cardiology evaluation recommended
Continue Eliquis (started 08/18/2024)
Atrial fibrillation rate control with goal HR<110
Smoking cessation counseling
Nicotine patch - pt refusing - I will DC
DVT prophylaxis-Eliquis
Early nutrition
Early mobilization
Reviewed with and 08/18/2024-joined us for multidisciplinary rounds
Outpatient pulmonary/sleep disorders [id number] low-dose lung cancer screening CT, smoking cessation counseling, PFTs, potential sleep study, and pulmonary nodule follow-up
Patient is doing well, and being prepared for discharge home. No additional recommendations at this time. Pulmonary service will now sign off. Thank you for allowing us to be involved in the care of this patient. Please reconsult if there are
any additional questions/concerns, or if patient's respiratory status deteriorates.
Diagnostic data:
Chest x-ray 08/17/2024-mild decreased bilateral lung volumes, mild to moderate cardiomegaly
CT chest 08/18/2024-mild bronchial wall thickening suggesting bronchitis, mild tree-in-bud pattern at the lung bases, mild groundglass opacifications concerning for developing pneumonia versus interstitial lung disease, 2 possible solid noncalcified
right lower lobe nodules measuring 2 mm
Total time spent today was 36 minutes for this encounter. Time includes reviewing laboratory test/imaging results, reviewing pertinent medical records, obtaining and reviewing medical history, performing an appropriate exam, ordering medications,
tests and procedures. Time also includes documentation of this encounter, coordinating patient care and communicating with other healthcare professionals. Total time does not include separately billed tests performed on this date of service.
Subjective Data
-
Date of Service:
Date of Service: August 20, 2024
Chief Complaint: Pulmonary Follow Up
Subjective:
Patient was seen and evaluated today at bedside. She is feeling well, still having a cough with some phlegm production. Her sinus/ear congestion have improved. She is eager to go home. No chest pain, SALVADOR, nausea, fevers or chills.
Review of Systems
General: Other (Negative unless mentioned above)
Objective Data
Data Reviewed
Vital Signs / I&O / Oxygen:
Vital Signs
Temp Pulse Resp BP Pulse Ox
97.9 F 83 20 146/90 99
08/20/24 07:23 08/20/24 07:23 08/20/24 07:23 08/20/24 07:23 08/20/24 07:23
Intake and Output
08/19/24 08/20/24 08/21/24
06:59 06:59 06:59
Intake Total 1340 / 1340 620 / 620
Output Total 400 / 400
Balance 940 / 940 620 / 620
SaO2 99
Nasal Cannula flow liters per 2
minute
Physical Exam
General: Respiratory Distress (negative), Comfortable, Chills (negative) and Sweats (negative)
HEENT: Normocephalic and Anicteric
Cardiovascular: Irregular Rhythm, Rub (negative) and Peripheral Edema (negative)
Respiratory: Wheeze (Faintly heard in posterior RUL), Crackles (negative), Rhonchi (negative) and Non-Labored Respirations
GI: Soft, Non Distended, Non Tender and Normal Bowel Sounds
Neurology: Awake, Alert and Tremors (negative)
Skin: Warm, Dry, Cyanosis (negative) and Jaundice (negative)
Labs/Micro/Reports
Lab Data
08/18/24 04:08
Microbiology
08/17/24 20:43 Urine Legionella Urinary Antigen - Final
Negative for Legionella pneumophila Serogroup 1 antigen.
A negative result does not rule out the possiblity of
Legionella infection due to other serogroups or species of
Legionella. Clinical correlation is recommended.
08/17/24 15:16 Nasal Swab Influenza Types A & B (RENE) - Final
Negative for Influenza A & B, NAAT
Negative results must be combined with clinical observations
and patient history.
Nucleic Acid Amplification test (NAAT)performed on the
[employer] platform.
[2024-08-20 08:57] LABS: Blood Urea Nitrogen 7 mg/dl (7-17); Calcium 8.9 mg/dl (8.4-10.2); Carbon Dioxide 31 mmol/L (22-30); Chloride 88 mmol/L (98-107); Estimated Creatinine Clearance 107 ml/min; Glucose 96 mg/dl (70-99); Magnesium 1.4 mg/dl (1.6-2.3); Phosphorus 2.6 mg/dl (2.5-4.5); Sodium 129 mmol/L (135-145); eGFR > 60.00
[2024-08-20 09:25] LABS: Potassium 4.2 mmol/L (3.5-5.1)
[2024-08-20] MEDS: MAGNESIUM OXIDE 500 MG PO (11:02)
[2024-08-20] MEDS: DUONEB 3 ML INH (11:25)
--- NOTE | 2024-08-20 11:52 | W.DCSUMMARY ---
Discharge Summary
Discharge Data
Date of Admission: 08/17/24
Date of Discharge: 08/20/24
-
Pending Results: No
Hospital Course
Ms. Santos is a 58-year-old female with medical history of hypertension, hyperlipidemia, longtime current smoker, and recent pneumonia (being treated with doxycycline) who presented from her PCP office due to hypoxia and change in mental status. She
had developed flulike symptoms including productive cough for 3 days prior to arrival and was started on doxycycline for presumptive pneumonia. She reportedly tested negative for COVID at that time. Her reported a change in her mentation
since her symptom onset with associated ambulatory dysfunction and 1 fall. She also reported diminished hearing.
In the ED, she was normotensive and afebrile, and saturating appropriately on room air. Chest CT showed bronchitis and developing pneumonia. Labs were significant for sodium of 108, potassium 2.6, WBC of 13,000. She was admitted for further
evaluation and management of symptomatic hyponatremia and pneumonia. She was initially started on hypertonic saline for her hyponatremia, levofloxacin for her pneumonia, and her potassium was repleted. Antibiotics were later de-escalated to
cefuroxime after Legionella urinary antigen resulted negative. Her serum sodium levels recovered appropriately over the first 24 hours after which she was transitioned to normal saline. Ultimately IV fluids were discontinued as her serum sodium
levels continued to recover. Her mentation and ambulatory dysfunction also recovered with treatment of her hyponatremia. Her home HCTZ was held and she was advised to discontinue that medication to avoid recurrence of hyponatremia. Her urine
studies were not consistent with SIADH. She was also advised to monitor her free water intake and to follow-up with her PCP in 1 week for repeat lab work to monitor her serum sodium levels. She has also been advised to abstain from alcohol use.
She did have a mild transaminitis at the time of admission which improved. She should have her LFTs repeated in the outpatient setting.
She will be continued on antibiotics with cefuroxime for 3 more days after hospital discharge for treatment of pneumonia. She has also been given a prescription for a tapering dose of oral steroids to help with her severe sinus congestion which is
likely the cause of her diminished hearing. She had some improvement in her congestion and hearing during her hospitalization with steroid treatment, Mucinex, and saline nasal spray. She should avoid using guaifenesin with codeine as this may have
contributed to her mentation change prior to admission. She was advised to follow-up with ENT in the outpatient setting if her diminished hearing does not return to normal after current treatment course.
During this hospitalization, she developed atrial fibrillation. She remained rate controlled and did not experience any symptoms of palpitations or chest pain. She was started on anticoagulation with Eliquis. She was evaluated by cardiology who
recommended follow-up in the outpatient office. It is possible that she her A-fib is related to her acute illness and may resolve spontaneously. However, she will require ongoing monitoring. Her thyroid studies showed low TSH with a normal free
T4.
Also of note, CT imaging showed 2 small noncalcified right lower lobe nodules measuring 2 mm each. She will require ongoing surveillance for this. She has been encouraged to quit smoking and has been given an a prescription for nicotine patches.
Follow-up:
-PCP for repeat lab work to check sodium levels, liver function tests, thyroid studies
-Cardiology for monitoring of A-fib
-ENT if diminished hearing does not resolve
-Pulmonology for ongoing monitoring of respiratory status, possible pulmonary function testing, surveillance of lung nodules
Discharge Plan
-
Patient Disposition: Home (Routine Discharge)
Discharge Diagnosis/Procedures: Symptomatic hyponatremia
Condition: Fair
Diet: Regular and Restrict fluids to 64 oz
Activity: As tolerated
Activity Restrictions/Additional Instructions:
Ms. Santos is a 58-year-old female with medical history of hypertension, hyperlipidemia, longtime current smoker, and recent pneumonia (being treated with doxycycline) who presented from her PCP office due to hypoxia and change in mental status. She
had developed flulike symptoms including productive cough for 3 days prior to arrival and was started on doxycycline for presumptive pneumonia. She reportedly tested negative for COVID at that time. Her reported a change in her mentation
since her symptom onset with associated ambulatory dysfunction and 1 fall. She also reported diminished hearing.
In the ED, she was normotensive and afebrile, and saturating appropriately on room air. Chest CT showed bronchitis and developing pneumonia. Labs were significant for sodium of 108, potassium 2.6, WBC of 13,000. She was been admitted for further
evaluation and management of symptomatic hyponatremia and pneumonia. She was initially started on hypertonic saline for her hyponatremia, levofloxacin for her pneumonia, and her potassium was repleted. Antibiotics were later de-escalated to
cefuroxime after Legionella urinary antigen resulted negative. Her serum sodium levels were recovered appropriately over the first 24 hours after which she was transitioned to normal saline. Ultimately IV fluids were discontinued as her serum
sodium levels continued to recover. Her mentation and ambulatory dysfunction also recovered with treatment of her hyponatremia. Her home HCTZ was held and she was advised to discontinue that medication to avoid recurrence of hyponatremia. Her
urine studies were not consistent with SIADH. She was also advised to monitor her free water intake and to follow-up with her PCP in 1 week for repeat lab work to monitor her serum sodium levels. She has also been advised to abstain from alcohol
use. She did have a mild transaminitis at the time of admission which improved. She should have her LFTs repeated in the outpatient setting.
She will be continued on antibiotics with cefuroxime for 3 more days after hospital discharge for treatment of pneumonia. She has also been given a prescription for a tapering dose of oral steroids to help with her severe sinus congestion which is
likely the cause of her diminished hearing. She has had some improvement in her congestion and hearing during her hospitalization with steroid treatment, Mucinex, and saline nasal spray. She should avoid using guaifenesin with codeine as this may
have contributed to her mentation change prior to admission. She was advised to follow-up with ENT in the outpatient setting if her diminished hearing does not return to normal after current treatment course.
During this hospitalization, she developed atrial fibrillation. She remained rate controlled and did not experience any symptoms of palpitations or chest pain. She was started on anticoagulation with Eliquis. She was evaluated by cardiology who
recommended follow-up in the outpatient office. It is possible that she her A-fib is related to her acute illness and may resolve spontaneously. However, she will require ongoing monitoring. Her thyroid studies showed low TSH with a normal free
T4.
Also of note, CT imaging showed 2 small noncalcified right lower lobe nodules measuring 2 mm each. She will require ongoing surveillance for this. She has been encouraged to and has been given an a prescription for nicotine patches.
Follow-up:
-PCP for repeat lab work to check sodium levels, liver function tests, thyroid studies
-Cardiology for monitoring of A-fib
-ENT if diminished hearing does not resolve
-Pulmonology for ongoing monitoring of respiratory status, possible pulmonary function testing, surveillance of lung nodules
Referrals:
Mitzy Sandoval PA-C [Specified Professional Personl] - 09/09/24 3:40 pm (You have a cardiology follow up appointment at the [place] office. Please call with questions. )
Ray Carias MD [Active] - in one to two weeks (diminished hearing, congestion)
Charlotte Arevalo DO [Family Provider] -
Maximilian Lester MD [Active] - in two to three weeks
(Asthma, needs PFTs
Pulmonary nodules-needs follow-up
Smoking cessation counseling)
Prescriptions:
New
nicotine 14 mg/24 hr Patch 24 Hour
14 mg transdermal DAILY Qty: 30 0RF
Eliquis 5 mg Tablet
5 mg PO BID Qty: 60 0RF
guaifenesin 600 mg Tablet Extended Release 12hr
1,200 mg PO Q12 5 Days Qty: 20 0RF
cefuroxime axetil 500 mg Tablet
500 mg PO BID 3 Days Qty: 6 0RF
methylprednisolone [Medrol (Benjie)] 4 mg tablets,dose pack
See Rx Instructions .ROUTE .COMPLEX Qty: 21 0RF
Rx Instructions:
for 6 days
Continued
atorvastatin [Lipitor] 10 mg Tablet
10 mg PO QPM
amlodipine [Norvasc] 10 mg Tablet
10 mg PO DAILY
albuterol sulfate 90 mcg/actuation Hfa Aerosol Inhaler
2 puff INHALATION R Q4HPRN PRN (Reason: sob)
lisinopril 40 mg Tablet
40 mg PO DAILY
atenolol 50 mg Tablet
50 mg PO BID
Discontinued
codeine-guaifenesin 10-100 mg/5 mL liquid
5 ml PO Q6HPRN PRN (Reason: cough)
prednisone 10 mg Tablet
40 mg PO DIRECTED
Rx Instructions:
take 40mg qpm for 3 days then 30mg qpm for 3 days then 20mg qpm for 3 days then 10mg qpm for 3 days
doxycycline hyclate 100 mg Capsule
100 mg PO QPM
hydrochlorothiazide 25 mg Tablet
25 mg PO DAILY
Discharge Orders:
Discharge Patient (As Directed); Ordered 08/20/24
Ordered By: Mulugeta Rosas
Discharge Date and Time
Print Language: YI
[2024-08-20 11:56] VITALS: BP 139/73
--- NOTE | 2024-08-20 11:56 | W.PN.HOSP.TC ---
Today's Communication/Plan
-
Assessment / Plan
Assessment / Plan
Gen-AAOx3, NAD
HEENT-NC, AT, anicteric, boggy nasal mucosa
Neck-supple
CV-reg, no M, +S1/S2
Lungs-clear breath sounds B/L
Abd-soft, NT, ND
Musculoskeletal-no edema, no deformity
Skin-warm and dry
Neuro-mild dysarthria, no asymmetry
Psych-calm, cooperative
Ms. Santos is a 58-year-old female with medical history of hypertension, hyperlipidemia, longtime current smoker, and recent pneumonia (treated with doxycycline) who presented from her PCP office due to hypoxia. She reports flulike symptoms
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 She reportedly tested negative for COVID at that time. Her reports that her mentation has been abnormal since her symptom onset
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 Patient also complains of nasal congestion and difficulty hearing.
In the ED, she was normotensive and afebrile, and saturating appropriately on room air. Chest x-ray showed no evidence of pneumonia or other acute abnormalities. However, labs were significant for sodium of 108, potassium 2.6, WBC of 13,000. She
was been admitted for further evaluation and management of symptomatic hyponatremia.
Symptomatic hyponatremia:
-Serum sodium levels continue to improve, sodium was 129 on labs this morning
-Symptoms resolved
-Continue fluid restriction
-Hold home HCTZ and advised her to avoid further use of HCTZ
-Urine sodium not consistent with SIADH
-Plan for discharge home today with planned outpatient PCP follow-up for repeat BMP
Metabolic encephalopathy:
-Secondary to severe hyponatremia
-Resolved, appears to be at baseline mental status
Community-acquired pneumonia:
-Continue antibiotics with cefuroxime, Legionella antigen negative
-Will discharge on 3 more days of cefuroxime
New onset A-fib:
-No known history of A-fib, etiology may be acute illness with severe electrolyte derangements
-Currently rate controlled, continuing home atenolol
-Started on Eliquis
-Low TSH with normal free T4, will recommend repeat thyroid function studies in the outpatient setting after treatment of acute illness
-Will need outpatient cardiology follow-up
Hypokalemia:
-Resolved
-Monitor potassium levels with BMP and continue to replete as needed
Transaminitis:
-Mild, possibly related to acute illness versus alcohol use
-Improving, will need outpatient follow-up for repeat LFTs
-Encourage abstinence from alcohol
Tobacco abuse:
-Encourage cessation, nicotine patch provided
Pulmonary nodules:
-CT chest finding of 2 small noncalcified right lower lobe nodules measuring 2 mm each, recommend continued outpatient surveillance considering looking history
CODE STATUS: Full code
Anticipated Discharge: Today
Subjective/Interval History
-
Date of Service: August 20, 2024
Ms. Santos seen and examined at bedside's morning. She is feeling well. She continues to productive cough. Her nasal congestion and hearing have slightly improved.
Objective Data
-
Labs:
Laboratory Results
08/20/24
07:42
Sodium 129 L
Potassium 4.2
Chloride 88 L
Carbon Dioxide 31 H
BUN 7
Creatinine 0.5 L
Glucose 96
Calcium 8.9
Vital Signs:
Vital Signs
Temp Pulse Resp BP Pulse Ox
97.9 F 75 16 146/90 95
08/20/24 07:23 08/20/24 11:28 08/20/24 11:28 08/20/24 07:23 08/20/24 11:28
I&O
08/19/24 08/20/24 08/21/24
06:59 06:59 06:59
Intake Total 1340 / 1340 620 / 620
Output Total 400 / 400
Balance 940 / 940 620 / 620
Review of Systems
-
History Source: Patient
All other systems: Reviewed and negative
EENT: Reports Hearing Loss (Diminished hearing bilaterally) and Other (Nasal congestion)
Respiratory: Reports Cough
Physical Exam
-
General: No Apparent Distress and Comfortable
== END 2024-08-20 12:30 | disposition home or self-care (01) | DRG 640 ==
LOC: 4 EAST ACU 16:13
PROVIDERS: Nurse Practitioner Primary Care; Physician Assistant Medical; Registered Nurse; ADMITTING PHYSICIAN Internal Medicine; CONSULT PHYSICIAN Internal Medicine Cardiovascular Disease; CONSULT PHYSICIAN Internal Medicine Critical Care Medicine; CONSULT PHYSICIAN Internal Medicine Nephrology; EMERGENCY PHYSICIAN Emergency Medicine; FAMILY PHYSICIAN Family Medicine
DX: E87.1 Hypo-osmolality and hyponatremia (principal); G93.41 Metabolic encephalopathy; J96.01 Acute respiratory failure with hypoxia; J18.9 Pneumonia, unspecified organism; J21.9 Acute bronchiolitis, unspecified; J45.901 Unspecified asthma with (acute) exacerbation; Z11.52 Encounter for screening for COVID-19; E87.6 Hypokalemia; F17.210 Nicotine dependence, cigarettes, uncomplicated; E83.42 Hypomagnesemia; J20.9 Acute bronchitis, unspecified; I10 Essential (primary) hypertension; I48.91 Unspecified atrial fibrillation; E78.00 Pure hypercholesterolemia, unspecified; E66.9 Obesity, unspecified; Z68.27 Body mass index [BMI] 27.0-27.9, adult; H26.9 Unspecified cataract; H61.20 Impacted cerumen, unspecified ear; I07.1 Rheumatic tricuspid insufficiency; I49.3 Ventricular premature depolarization; Z71.6 Tobacco abuse counseling; Z79.01 Long term (current) use of anticoagulants
CPT/HCPCS: 71046; 71250; 80048; 80053; 81003; 81015; 82248; 82533; 83735; 83930; 83935; 84100; 84300; 84439; 84443; 84484; 85025; 85027; 87449; 87502; 87811; 93005; 93306; 94640; 96365; 96366; 99291; 99406

== ENCOUNTER → 2024-09-15 11:48 | Outpatient (REF) | payer OTHER, SELFPAY | LOC: PAVMRI 11:48 | PROVIDERS: ATTENDING PHYSICIAN Family Medicine | DX: E87.1 Hypo-osmolality and hyponatremia (principal); R41.89 Other symptoms and signs involving cognitive functions and awareness; G93.40 Encephalopathy, unspecified | CPT/HCPCS: 70553; A9575 ==

== ENCOUNTER 2024-10-27 09:07 | Day surgery (SDC) | payer OTHER, SELFPAY ==
--- NOTE | 2024-10-27 11:49 | ITS.CL.CARDI ---
Motor Vehicle Technician - Cardioversion
Cardioversion
Procedure Report:
Date of Procedure: October 27 2024
Procedure: Cardioversion
Indication: Symptomatic atrial fibrillation
Performing Physician: Neymar Gomez DO, FACC
Technique: The patient was brought to the holding area. Signed informed consent was obtained. A time out was called and performed. The patient was anesthetized by the anesthesia service. Anticoagulation status was reviewed and appropriate. R2 pads
were placed anteriorly and posteriorly. A 200 J synchronized biphasic shock restored normal sinus rhythm without significant bradycardia. There were no complications.
Conclusion: Uncomplicated cardioversion from atrial fibrillation to sinus rhythm.
Recommendation: Routine post cardioversion care. Continue care home anticoagulation.
== END 2024-10-27 11:36 ==
LOC: CATH 09:07
PROVIDERS: ATTENDING PHYSICIAN Nuclear Medicine Nuclear Cardiology; FAMILY PHYSICIAN Physician Assistant Medical; OTHER PHYSICIAN Internal Medicine Cardiovascular Disease
DX: I48.0 Paroxysmal atrial fibrillation (principal); Z79.01 Long term (current) use of anticoagulants; I10 Essential (primary) hypertension; E78.5 Hyperlipidemia, unspecified; Z79.899 Other long term (current) drug therapy
CPT/HCPCS: 92960; 93005

== ENCOUNTER 2025-07-16 16:20 | Inpatient (IN) | payer OTHER, SELFPAY ==
[2025-07-16] VITALS (13 sets, daily range): BP systolic 106–132; BP diastolic 68–92; BMI 31.2; BMI 31.0
[2025-07-16 13:42] LABS: Hematocrit 35.9 % (37.0-47.0); Hemoglobin 13.0 g/dL (12.0-16.0); Mean Corp Hgb Conc. 36.2 g/dL (33.0-37.0); Mean Corpuscular Volume 88.2 fL (81.0-99.0); Nucleated Red Blood Cells % 0 %; Platelet Count 226 10^3/uL (130-400); Red Cell Dist. Width 12.9 % (11.5-14.5)
[2025-07-16 14:03] LABS: ALT (SGPT) 39 U/L (0-35); AST (SGOT) 49 U/L (14-36); Albumin 4.0 g/dl (3.5-5.0); Alkaline Phosphatase 84 U/L (38-126); Blood Urea Nitrogen 12 mg/dl (7-17); Calcium 9.0 mg/dl (8.4-10.2); Carbon Dioxide 27 mmol/L (22-30); Chloride 76 mmol/L (98-107); Glucose 107 mg/dl (70-99); Potassium 3.6 mmol/L (3.5-5.1); Sodium 112 mmol/L (135-145); Total Protein 6.4 g/dl (6.3-8.2); eGFR > 60.00
--- NOTE | 2025-07-16 15:00 | W.CON.NEPH ---
Consultation
-
Date/Time Consultation Requested: 07/16/2025 3:00 PM
Date/Time Consultation Performed: 07/16/2025 3:00 PM
Requesting Provider: Dr. Olmstead
Performing Provider: Dr. Razo
Reason for Consultation: Hyponatremia
Medical History
-
Chief Complaint: Hyponatremia
History of Present Illness:
59-year-old female with medical history of hypertension on amlodipine, lisinopril and atenolol), hyponatremia with a sodium of 129 from August 20, 2024, hyperlipidemia, longtime current smoker. The patient presented with 3 weeks of exertional
dyspnea and abdominal and lower extremity edema. Nephrology was consulted for hyponatremia as she presented with a serum sodium of 112. Last August of 2024 she had presented to the hospital and he we have been consulted for a sodium of 108 was
likely due to the combination of underlying pneumonia copious fluid ingestion and hydrochlorothiazide.
Past Medical History
Hypertension, hyperlipidemia, tobacco use, paroxysmal atrial fibrillation
Hyponatremia
Social History
Current everyday smoker no alcohol use
Tobacco: Smoker
Alcohol: Daily (1 drink per day)
Drug: None
Personal:
Living: With Family
Family History
Family History: Not Pertinent
Allergies / Home Medications
Allergy/AdvReac Type Severity Reaction Status Date / Time
No Known Allergies Allergy Verified 07/16/25 13:19
�Medication �Instructions �Recorded �Confirmed �Type
amlodipine 10 mg tablet (Norvasc) 10 mg PO DAILY Blood Pressure 08/17/24 07/16/25 History
atenolol 50 mg tablet 50 mg PO BID Blood Pressure 08/17/24 07/16/25 History
atorvastatin 10 mg tablet (Lipitor) 10 mg PO QPM High Cholesterol 08/17/24 07/16/25 History
lisinopril 40 mg tablet 40 mg PO DAILY Blood Pressure 08/17/24 07/16/25 History
apixaban 5 mg tablet (Eliquis) 5 mg PO BID Blood clot 08/20/24 07/16/25 Rx
prevention/tx #60 tabs
acetaminophen 650 mg 650 mg PO Q12H PRN PRN 07/16/25 07/16/25 History
tablet,extended release
ascorbic acid (vitamin C) 500 mg 500 mg PO DAILY 07/16/25 07/16/25 History
tablet (Vitamin C)
cholecalciferol (vitamin D3) 50 50 mcg PO DAILY 07/16/25 07/16/25 History
mcg (2,000 unit) tablet (Vitamin
D3)
furosemide 40 mg tablet 40 mg PO DAILY 07/16/25 07/16/25 History
therapeutic multivitamin 1 tab PO DAILY 07/16/25 07/16/25 History
vitamin E 670 mg (1,000 unit) 670 mg PO DAILY 07/16/25 07/16/25 History
capsule
Review of Systems
-
History Source: Patient
All other systems: Negative unless noted
Constitutional: Weight Gain (30 pound weight gain over the course of 4 to 6-weeks)
Respiratory: Trouble Breathing
Musculoskeletal: Edema
Physical Exam
Vital Signs
Vital Signs
Pulse Resp BP Pulse Ox
70 16 106/69 98
07/16/25 13:20 07/16/25 13:20 07/16/25 13:20 07/16/25 13:20
Lab Results
07/16/25 13:29
07/16/25 13:28
WBC 8.6 10^3/uL (4.8-10.8) 07/16/25 13:29
RBC 4.07 10^6/uL (4.20-5.40) L 07/16/25 13:29
Hgb 13.0 g/dL (12.0-16.0) 07/16/25 13:29
Hct 35.9 % (37.0-47.0) L 07/16/25 13:29
Plt Count 226 10^3/uL (130-400) 07/16/25 13:
Sodium 112 mmol/L (135-145) L* 07/16/25 13:
Potassium 3.6 mmol/L (3.5-5.1) 07/16/25 13:
Chloride 76 mmol/L (98-107) L 07/16/25 13:
Carbon Dioxide 27 mmol/L (22-30) 07/16/25 13:
BUN 12 mg/dl (7-17) 07/16/25 13:
Creatinine 0.6 mg/dL (0.6-1.0) 07/16/25 13:
eGFR > 60.00 07/16/25 13:
Glucose 107 mg/dl (70-99) H 07/16/25 13:
Calcium 9.0 mg/dl (8.4-10.2) 07/16/25 13:
Aev-X-Xvdkihbwzri Pept 5570 pg/ml 07/16/25 13:
Albumin 4.0 g/dl (3.5-5.0) 07/16/25 13:
Physical Exam
General: Oriented, AOx3 and Nontoxic
HEENT: PERRL, EOMI, Anicteric, Conjunctivae Clear, Ear/Nose Intact, Hearing Normal, Oropharynx Clear/Moist, Dentition Intact, Facial Symmetry, Neck Supple, Trachea Midline, No JVD and No Thyromegaly
Respiratory: Wheezes, Crackels (Fine crackles at bases) and Other (Profoundly decreased breath sounds towards bases)
Cardiac: S1/S2 (Irregular irregular) and Edema (+1 pitting pretibial edema)
Breast: Deferred by me
Abdomen: Soft, Nontender, No Hepatosplenomegaly and Other (Distended)
Rectal: Deferred by Provider
Genito-urinary: No Costovertebral Tender
Musculoskeletal: No Clubbing, No Cyanosis and Edema (+1 to +2 pretibial edema)
Skin: No Rash, Warm, Dry, No Clubbing, No Cyanosis, Normal Turgor and No Bruising
Neuro: Nonfocal/Grossly Intact and Strength (5 out of 5 in left upper and lower extremity)
Hematologic/Lymphatic: No Cervical Lymphadenopathy, No Submandibular Lymphadenopathy and No Supraclavicular Lymphadenopathy
Psych: Mood/afflect pleasant, Insight/judgement good and Appropriate
Data Reviewed
-
Radiology: Image Personally Visualized and interpreted (Chest x-ray with cardiomegaly and increased interstitial edema)
Labs: Labs Reviewed by me (BMP CBC)
Old Records: Reviewed (Reviewed previous nephrology consultation and discharge summary from August 2024 for)
Assessment/Plan
-
Impression:
Hyponatremia (112)
History of hypertension
History of paroxysmal atrial fibrillation
Volume overload
Dyslipidemia
Hypertension
Plan:
Hypervolemic hyponatremia
-Will provide 3% saline at 20 cc/h given profoundly low serum sodium with high risk for seizure
-Will also provide 80 mg of IV Lasix as patient appears to be grossly volume overloaded with some respiratory compromise
-Accurate I's and O's, TSH, 1200 cc/day fluid restriction, urine Osmo
-Will check urinalysis for possible nephrotic syndrome given recent evolution of edema with normal GFR
-Discussed with cardiology who will repeat echo
-Patient is critically ill with profoundly low sodium of 112 and should be admitted to ICU with acute 4-hour electrolyte checks
--- NOTE | 2025-07-16 15:09 | ED.GENMED ---
History of Present Illness
<Kristi Perdomo PA-C - Last Filed: 07/17/25 13:18>
General
Chief Complaint: Breathing Problem
Source: patient and spouse
Exam Limitations: none
Time Seen by Provider: 07/16/25 14:27
Nursing documentation reviewed up to this point in time: agreed with
History of Present Illness
History of Present Illness:
Patient is a 59-year-old female with history hypertension, hyperlipidemia, paroxysmal atrial fibrillation on Eliquis who presents to the emergency department with 3 weeks of exertional dyspnea as well as abdominal distention and lower extremity
edema. Patient states that over the past 3 weeks she has gained 30 pounds. She reports progressively worsening abdominal distention and bloating as well as lower extremity swelling. She also notes feeling very short of breath with minimal
exertion however denies any chest pain. She denies any fever or cough. She denies any headache, changes in mental status, balance difficulties, or falls.
Patient was seen by her supervisor [employer] 1 week ago and started on Lasix 40 mg. She was instructed to take 40 mg twice daily for 3 days and then reduce to 40 mg once daily. She has not noticed any improvement in symptoms with Lasix. She is scheduled
for an outpatient echocardiogram on Saturday.
Patient is anticoagulated with Eliquis for paroxysmal atrial fibrillation and compliant with medication.
Past History
<Kristi Perdomo PA-C - Last Filed: 07/17/25 13:18>
Past History
ED Past Medical History: HTN and Hypercholesterolemia
ED Past Surgical History: None
Social History
Tobacco: Smoker
Alcohol: None
Drug: None
Personal:
Living: with family
Review of Systems
<Kristi Perdomo PA-C - Last Filed: 07/17/25 13:18>
Review of Systems
Allergies reviewed?: Yes
All Other Systems: ROS reviewed and negative except as documented in HPI and ROS
Phy Exam
<Kristi Perdomo PA-C - Last Filed: 07/17/25 13:18>
Physical Exam
Physical Exam:
Vitals: Borderline hypoxic. Otherwise stable vital signs
General: Patient is well appearing, no acute distress
Skin: Warm and dry, no rashes or lesions
Head: Normocephalic, atraumatic
Eyes: Sclera nonicteric. EOMs intact. No nystagmus.
Throat: Protecting airway
Neck: Normal ROM, no cervical spine tenderness, no meningismus
Cardiac: Regular rate, irregularly irregular rhythm, no murmurs.
Pulm: O2 saturation 90 on room air. Faint rales bilaterally without wheezing.
.
Abdomen: Distended. Soft without areas of focal tenderness.
Extremities: 2+ pitting edema of bilateral lower extremities. No erythema or warmth. Distal pulses intact bilaterally.
Neuro: AAOx3. No focal deficits
Psychiatric: Normal affect.
Scores
<Kristi Perdomo PA-C - Last Filed: 07/17/25 13:18>
Heart Failure Risk
HF Risk Score: 1
Admission Status: MEDIUM RISK 5.1% Consider observation or discharge to home with homecare & f/u visit to PCP/[facility], or SNF for treatment
<Tom Olmstead DO - Last Filed: 07/16/25 15:37>
Heart Failure Risk
Heart Failure Risk Score: Yes
History of Stroke or TIA: No
History of intubation for respiratory distress: No
Heart rate on ED arrival >/= 110: No
SaO2 <90% on arrival on room air: No
HR >/=110 during 3min walk test (or too ill to perform test): No
ECG has acute ischemic changes: No
Urea >/=12mmol/L (BUN 33.6mg/dL): No
Serum CO2>/=35mmol/L: No
Troponin I or T elevated to TX Level (0.4mg/dL): No
NT-proBNP >/=5,000ng/L (5,000pg/ml): Yes
HF Risk Score: 1
Admission Status: MEDIUM RISK 5.1% Consider observation or discharge to home with homecare & f/u visit to PCP/[facility], or SNF for treatment
Course
<Kristi Perdomo PA-C - Last Filed: 07/17/25 13:18>
Orders/Labs/Results
Orders:
Orders
07/16/25 Breakfast
Cholesterol Lowering
At Your Request: Full Participation
Fluid Restriction: 1200 mL/day (40 oz)
Cholesterol Lowering: Sodium, 2 Gram
07/16/25 13:25
CR Chest - 2 Views Urgent
Comment:
Reason For Exam: respiratory distress
07/16/25 13:28
Comprehensive Metabolic Panel Urgent
Magnesium Urgent
Comment: ADD ON
Serum Osmolality Urgent
Comment: ADD ON
07/16/25 13:29
Complete Blood Count/With Diff Urgent
NT-proBNP Urgent
TSH Reflex To Free T4 Urgent
Comment: ADD ON
07/16/25 13:35
EKG [Electrocardiogram (*1)] Urgent
Reason for Study: Shortness of Breath
07/16/25 13:36
EKG- Treatment ONCE
07/16/25 14:32
Add On- LAB Urgent
Tests Added?: serum osmolality, amgnesium
07/16/25 14:48
NEPHROLOGY CONSULT Urgent
Consulting Provider: Audi Razo V.
Was physician already notified: Yes
07/16/25 15:09
Echo 2D MMode Color/Doppler Routine
Reason for Study: HF
07/16/25 15:29
Add On- LAB Urgent
Tests Added?: TSH w/ reflex to T4
07/16/25 15:34
Osmolality, Random Urine Urgent
Date Specimen was Collected: 07/16/25
Time Specimen was Collected: 15:28
Troponin I Urgent
Urinalysis Reflex To Culture Urgent
Date Specimen was Collected: 07/16/25
Time Specimen was Collected: 15:28
Urine Microscopic Reflex Cult Urgent
Urine Sodium Urgent
Date Specimen was Collected: 07/16/25
Time Specimen was Collected: 15:28
07/16/25 15:39
CARDIOLOGY CONSULT Urgent
Consulting Provider: Dipesh Clark
Was physician already notified: Yes
Furosemide [Lasix] 80 mg IV NOW STA
07/16/25 15:40
3% Sodium Chloride 250 ml [Sodium Chloride 3%] 250 ml IV ONCE
07/16/25 16:08
Admit/Transfer Patient As Directed
Co-Sign Provider:
Level of Care: Inpatient admission
Assign to:: ICU
Physician / Group: sushma
Diagnosis: CHF exacerbation
Reason for Hospitalization: CHF exacerbation
Expected length of stay greater than two midnights?: Yes
ELOS- Estimated Length of Stay in days: 3
I certify the patient meets the requirements for IP care: Yes
PRN Pain Medication Management As Directed
May give lesser potent ordered pain med per pt: Yes
preference::
Protocol:: Medication orders for pain may be administered in a
manner that supports deferring to patient preference
when the pt is:
- Requesting an ordered lesser potent pain medication.
Least to most potent pain medications are defined
as: acetaminophen < NSAID < tramadol < opioids
(morphine, oxycodone, hydromorphone).
- Requesting a lesser dose of the same medication IF
ORDERED.
- Requesting a less intrusive route of administration
if both routes are prescribed by the provider (PO <
IV).
07/16/25 16:10
Code Status As Directed
Resuscitation Status: Full Code
07/16/25 16:13
PULMONARY CONSULT Routine
Consulting Provider: Dilan Jones
Was physician already notified: Yes
07/16/25 17:52
HF DIETARY CONSULT Routine
HF EDUCATOR CONSULT Routine
Comment:
Activity As Directed
Activity Level: As Tolerated
Intake/ Output As Directed
Frequency: Per unit guidelines
Patient Education As Directed
Type: CHF folder
Comment: give on admission. Document in Interdisciplinary Education record
Sleep Apnea Assessment by RN As Directed
Comment:
Physician Instructions:
Vital Signs As Directed
Frequency: Other
Additional Instructions:: Q12 or per unit guidelines if more frequent.
Weight As Directed
Frequency: Daily
Type of Scale: Standing Scale
Comment: Daily morning weight. If unable to stand, use balanced bed scale.
Weight As Directed
Frequency: Once
Type of Scale: Standing Scale
Comment: Upon Admission. If unable to stand, use balanced bed scale.
Pulse Ox/cont/shift [RESP] Routine
Quantity: 1
Special Instructions: Daily pulse oximetry at rest. If greater than 92% at rest also obtain pulse oximetry
while ambulating as tolerated.
07/16/25 18:00
Atorvastatin [Lipitor] 10 mg PO QPM
07/16/25 20:00
Apixaban [Eliquis] 5 mg PO BID
Atenolol [Tenormin] 50 mg PO BID
07/17/25 04:59
Cardiovascular Evaluation IN AM
Complete Blood Count/No Diff IN AM
Magnesium IN AM
TSH Reflex To Free T4 IN AM
07/17/25 08:00
Amlodipine [Norvasc] 10 mg PO DAILY
Furosemide [Lasix] 80 mg IV DAILY
lisinopril 40 mg PO DAILY
07/18/25 06:00
Basic Metabolic Panel IN AM
07/19/25 06:00
Basic Metabolic Panel IN AM
Abnormal Lab Results
07/16/25 07/16/25 07/16/25
13:28 13:29 15:34
RBC 4.07 L 10^6/uL
(4.20-5.40)
Hct 35.9 L %
(37.0-47.0)
MCH 31.9 H pg
(27.0-31.0)
Absolute Neuts (auto) 7.0 H 10^3/uL
(1.4-6.5)
Absolute Lymphs (auto) 0.8 L 10^3/uL
(1.2-3.4)
Absolute Monos (auto) 0.8 H 10^3/uL
(0.1-0.6)
Neutrophils % 81.1 H %
(42.2-75.2)
Lymphocytes % 8.7 L %
(20.5-51.1)
Sodium 112 L* mmol/L
(135-145)
Chloride 76 L mmol/L
(98-107)
Glucose 107 H mg/dl
(70-99)
Serum Osmolality 235 L mOsm/kg
(275-300)
Magnesium 1.5 L mg/dl
(1.6-2.3)
Total Bilirubin 1.5 H mg/dl
(0.2-1.3)
AST 49 H U/L
(14-36)
ALT 39 H U/L
(0-35)
Urine Bacteria (Reflex) Few A
(Negative)
Urine Osmolality 120 L mOsm/kg
(300-900)
Urine Sodium 17 L mmol/L
(30-90)
Urine Albumin (Reflex) 2+ A
(Neg - Trace)
07/16/25 13:29
07/16/25 13:28
Vital Signs
Initial and Last Documented VS:
Initial Vital Signs
Pulse Resp BP Pulse Ox
70 16 106/69 98
07/16/25 13:20 07/16/25 13:20 07/16/25 13:20 07/16/25 13:20
Last Documented Vital Signs
Temp Pulse Resp BP Pulse Ox
97.8 F 69 19 127/74 98
07/17/25 12:22 07/17/25 10:41 07/17/25 08:40 07/17/25 10:41 07/17/25 10:38
<Tom Olmstead, DO - Last Filed: 07/16/25 15:37>
Orders/Labs/Results
Orders:
Orders
07/16/25 Breakfast
Cholesterol Lowering
At Your Request: Full Participation
Fluid Restriction: 1200 mL/day (40 oz)
Cholesterol Lowering: Sodium, 2 Gram
07/16/25 13:25
CR Chest - 2 Views Urgent
Comment:
Reason For Exam: respiratory distress
07/16/25 13:28
Comprehensive Metabolic Panel Urgent
Magnesium Urgent
Comment: ADD ON
Serum Osmolality Urgent
Comment: ADD ON
07/16/25 13:29
Complete Blood Count/With Diff Urgent
NT-proBNP Urgent
TSH Reflex To Free T4 Urgent
Comment: ADD ON
07/16/25 13:35
EKG [Electrocardiogram (*1)] Urgent
Reason for Study: Shortness of Breath
07/16/25 13:36
EKG- Treatment ONCE
07/16/25 14:32
Add On- LAB Urgent
Tests Added?: serum osmolality, amgnesium
07/16/25 14:48
NEPHROLOGY CONSULT Urgent
Consulting Provider: Audi Razo V.
Was physician already notified: Yes
07/16/25 15:09
Echo 2D MMode Color/Doppler Routine
Reason for Study: HF
07/16/25 15:29
Add On- LAB Urgent
Tests Added?: TSH w/ reflex to T4
07/16/25 15:34
Osmolality, Random Urine Urgent
Date Specimen was Collected: 07/16/25
Time Specimen was Collected: 15:28
Troponin I Urgent
Urinalysis Reflex To Culture Urgent
Date Specimen was Collected: 07/16/25
Time Specimen was Collected: 15:28
Urine Microscopic Reflex Cult Urgent
Urine Sodium Urgent
Date Specimen was Collected: 07/16/25
Time Specimen was Collected: 15:28
07/16/25 15:39
CARDIOLOGY CONSULT Urgent
Consulting Provider: Dipesh Clark
Was physician already notified: Yes
Furosemide [Lasix] 80 mg IV NOW STA
07/16/25 15:40
3% Sodium Chloride 250 ml [Sodium Chloride 3%] 250 ml IV ONCE
07/16/25 16:08
Admit/Transfer Patient As Directed
Co-Sign Provider:
Level of Care: Inpatient admission
Assign to:: ICU
Physician / Group: sushma
Diagnosis: CHF exacerbation
Reason for Hospitalization: CHF exacerbation
Expected length of stay greater than two midnights?: Yes
ELOS- Estimated Length of Stay in days: 3
I certify the patient meets the requirements for IP care: Yes
PRN Pain Medication Management As Directed
May give lesser potent ordered pain med per pt: Yes
preference::
Protocol:: Medication orders for pain may be administered in a
manner that supports deferring to patient preference
when the pt is:
- Requesting an ordered lesser potent pain medication.
Least to most potent pain medications are defined
as: acetaminophen < NSAID < tramadol < opioids
(morphine, oxycodone, hydromorphone).
- Requesting a lesser dose of the same medication IF
ORDERED.
- Requesting a less intrusive route of administration
if both routes are prescribed by the provider (PO <
IV).
07/16/25 16:10
Code Status As Directed
Resuscitation Status: Full Code
07/16/25 16:13
PULMONARY CONSULT Routine
Consulting Provider: Dilan Jones
Was physician already notified: Yes
07/16/25 17:52
HF DIETARY CONSULT Routine
HF EDUCATOR CONSULT Routine
Comment:
Activity As Directed
Activity Level: As Tolerated
Intake/ Output As Directed
Frequency: Per unit guidelines
Patient Education As Directed
Type: CHF folder
Comment: give on admission. Document in Interdisciplinary Education record
Sleep Apnea Assessment by RN As Directed
Comment:
Physician Instructions:
Vital Signs As Directed
Frequency: Other
Additional Instructions:: Q12 or per unit guidelines if more frequent.
Weight As Directed
Frequency: Daily
Type of Scale: Standing Scale
Comment: Daily morning weight. If unable to stand, use balanced bed scale.
Weight As Directed
Frequency: Once
Type of Scale: Standing Scale
Comment: Upon Admission. If unable to stand, use balanced bed scale.
Pulse Ox/cont/shift [RESP] Routine
Quantity: 1
Special Instructions: Daily pulse oximetry at rest. If greater than 92% at rest also obtain pulse oximetry
while ambulating as tolerated.
07/16/25 18:00
Atorvastatin [Lipitor] 10 mg PO QPM
07/16/25 20:00
Apixaban [Eliquis] 5 mg PO BID
Atenolol [Tenormin] 50 mg PO BID
07/17/25 04:59
Cardiovascular Evaluation IN AM
Complete Blood Count/No Diff IN AM
Magnesium IN AM
TSH Reflex To Free T4 IN AM
07/17/25 08:00
Amlodipine [Norvasc] 10 mg PO DAILY
Furosemide [Lasix] 80 mg IV DAILY
lisinopril 40 mg PO DAILY
07/18/25 06:00
Basic Metabolic Panel IN AM
07/19/25 06:00
Basic Metabolic Panel IN AM
Abnormal Lab Results
07/16/25 07/16/25 07/16/25
13:28 13:29 15:34
RBC 4.07 L 10^6/uL
(4.20-5.40)
Hct 35.9 L %
(37.0-47.0)
MCH 31.9 H pg
(27.0-31.0)
Absolute Neuts (auto) 7.0 H 10^3/uL
(1.4-6.5)
Absolute Lymphs (auto) 0.8 L 10^3/uL
(1.2-3.4)
Absolute Monos (auto) 0.8 H 10^3/uL
(0.1-0.6)
Neutrophils % 81.1 H %
(42.2-75.2)
Lymphocytes % 8.7 L %
(20.5-51.1)
Sodium 112 L* mmol/L
(135-145)
Chloride 76 L mmol/L
(98-107)
Glucose 107 H mg/dl
(70-99)
Serum Osmolality 235 L mOsm/kg
(275-300)
Magnesium 1.5 L mg/dl
(1.6-2.3)
Total Bilirubin 1.5 H mg/dl
(0.2-1.3)
AST 49 H U/L
(14-36)
ALT 39 H U/L
(0-35)
Urine Bacteria (Reflex) Few A
(Negative)
Urine Osmolality 120 L mOsm/kg
(300-900)
Urine Sodium 17 L mmol/L
(30-90)
Urine Albumin (Reflex) 2+ A
(Neg - Trace)
07/16/25 13:29
07/16/25 13:28
Vital Signs
Initial and Last Documented VS:
Initial Vital Signs
Pulse Resp BP Pulse Ox
70 16 106/69 98
07/16/25 13:20 07/16/25 13:20 07/16/25 13:20 07/16/25 13:20
Last Documented Vital Signs
Temp Pulse Resp BP Pulse Ox
97.8 F 69 19 127/74 98
07/17/25 12:22 07/17/25 10:41 07/17/25 08:40 07/17/25 10:41 07/17/25 10:38
<Kristi Perdomo PA-C - Last Filed: 07/17/25 13:18>
MDM/Problems Addressed
Differential Diagnosis Includes:
Not limited to: congestive heart failure, pericardial effusion, pleural effusion, cardiomyopathy, viral illness, electrolyte abnormality, etc.
MDM/Problems Addressed:
59-year-old female presenting with 3 weeks of exertional dyspnea, peripheral edema, and weight gain. No fevers or productive cough. No chest pain. She is anticoagulated on Eliquis. Saw cardiology, started Lasix without improvement.
Vitals as above. On exam, patient appears significantly fluid overloaded with bilateral pitting edema and abdominal distention. She is in a rate controlled atrial fibrillation. Faint rales bilaterally on lung exam.
Workup initiated out in triage, which revealed severe hyponatremia with sodium of 119. Chest x-ray was also obtained which shows cardiomegaly and asymmetric opacity in left upper lobe consistent with pneumonia versus pulmonary edema. Her BNP is
5570. Will send sodium studies.
Case was immediately discussed with nephrology and cardiology for consultation given severe hyponatremia and fluid overload with findings suggestive of possible CHF. She will be a very careful fluid balance and will clearly require admission to the
hospital
Nephrology and cardiology down to evaluate patient bedside. Plan will be to start 3% hypertonic saline and diurese per nephrology. Cardiac echo ordered, as well. Patient to be admitted to ICU. Patient accepted to hospital service for further
management
Chronic conditions affecting care:
Paroxysmal atrial fibrillation on Eliquis
Acute Exacerbation and/or Progression of Chronic Illness:
N/A
<Kristi Perdomo PA-C - Last Filed: 07/17/25 13:18>
*Radiology
Radiology exam reviewed: radiology read reviewed
*Pulse Oximetry
SaO2: 91
Oxygen Mode of Delivery: Room air
Patient hypoxic: no
*EKG
Interpreted by ED Provider?: Yes
EKG Intrepretation Date: 07/16/25
Interpretation: abnormal
Comparison EKG: changes noted
Heart Rate: 52
Rate: bradycardiac
Rhythm: a-fib
[place]: normal axis
Interval: normal QT interval
QRS Pattern: low voltage
Ischemia: non-specific ST changes
*Aerodynamic Consultant Interpretation
Rate: normal
Interpretation: abnormal
Heart Rate: 70
Rhythm: a-fib
*Critical Care Note
Total Time (30-74mins, 75-104mins- exclusive of procedures): 35
comment:
Critical care statement: A total of 35 minutes of critical care time was provided for this patient. This includes management of unstable vital signs, evaluation of the patient at bedside, reviewing the patient's pertinent medical records, discussion
with consultants, review of old EKGs and review of pertinent medical records. This time with separate from time utilized to perform the aforementioned documented procedures
<Kristi Perdomo PA-C - Last Filed: 07/17/25 13:18>
Patient Management
Discussion with other providers: Hospitalist and Team Foreman (Case discussed with cardiology and nephrology)
ED Attending Note
<Kristi Perdomo PA-C - Last Filed: 07/17/25 13:18>
-
Portions of this chart may have been created with voice recognition software.� Occasional wrong word or��sound alike� substitutions may have occurred due to the inherent limitations of voice recognition software.
<Tom Olmstead DO - Last Filed: 07/16/25 15:37>
ED Attending Note
Patient seen and examined by attending physician: Yes
ED Attending Note:
I have reviewed and agree with history treatment plan by Kristi Perdomo PA-C. My exam revealed 59-year-old female with faint rales bilaterally, normal pulses in all extremities. Abdominal swelling. Patient with hyponatremia, which will require
3% normal saline. Admit to hospitalist. In consultation with Dr. Razo, nephrology.
Discharge Plan
Departure
Patient Disposition: Admit
Presentation/result/management discussed w/ accepting MD/DO: Hospitalist
Discharge Problem:
Acute hyponatremia, Exertional shortness of breath
Interventions
Interventions:
*Risk Screen - Suicide Last Done: 07/16/25 13:20
*General Assessment Last Done: 07/16/25 13:20
*Neglect/Abuse Screening Last Done: 07/16/25 13:20
*ED COVID-19 Vaccine History Last Done: 07/16/25 16:59
*ED Influenza Vaccine History Last Done: 07/16/25 16:59
*Nursing Disposition Last Done: 07/16/25 17:53
ED- Cardiac Assessment Last Done: 07/16/25 16:59
ED- Pulmonary Assessment Last Done: 07/16/25 16:59
Discharge Date and Time
Discharge Date/Time: 07/16/25 17:53
--- NOTE | 2025-07-16 15:40 | CON.CAR ---
Consultation
Consultation Request
Date/Time Consultation Requested: 07/16/2025 1507
Date/Time Consultation Performed: 07/16/2025 1530
Requesting Provider: Kristi Perdomo
Performing Provider: Eduardo
Reason for Consultation: HF, SOB
Medical History
-
Chief Complaint: SOB, weight gain
History of Present Illness:
Patient is a very pleasant 59-year-old female with past medical history significant for hyponatremia, hypokalemia, hypomagnesemia, persistent atrial fibrillation, hypertension, hyperlipidemia, chronic alcohol use, chronic tobacco use presents due to
worsening shortness of breath at rest and with activity as well as weight gain. Patient was admitted August 2024 due to acute confusion and symptomatic hyponatremia and underwent treatment at that time. Additionally, she had new diagnosis of
atrial fibrillation for which she was started on anticoagulation. Patient was recently seen in office 07/09/2025. At that time, patient had reported worsening shortness of breath and weight gain for which her primary care physician had started
Lasix 40 mg p.o. daily. Patient took that for 1 week with reported improvement at office visit however patient states today that she did not experience much of an improvement. In office, it was recommended that she increase her Lasix dosing to 40
mg twice daily for 3 days followed by 40 mg daily. Additionally was recommended that she reduce fluid and sodium intake. With this change in frequency, she reported no significant change. Overall, she was reported an increase in weight of roughly
30 pounds over the last month. She denies any chest pain or tightness. She reports shortness of breath at rest and with exertion. She notes lower extremity swelling which has worsened. Additionally, her reports increased fatigue by
patient. She denies any lightheadedness, dizziness, near-syncope, syncope, PND, orthopnea, or weakness. Patient is a daily smoker (10 cigarettes/day, for a 'long time'), daily alcohol 1-2 drinks, no illicits. Patient is a positive family history
of heart disease.
Past Medical History
Past Medical History: Other (See HPI)
Past Surgical History: Other ([facility] 10/2024)
Social History
Tobacco: Smoker
Alcohol: Daily
Drug: None
Personal:
Living: With Family
Family History
Family History: CAD, Diabetes and Hypertension
Allergies / Home Medications
Allergy/AdvReac Type Severity Reaction Status Date / Time
No Known Allergies Allergy Verified 07/16/25 13:19
�Medication �Instructions �Recorded �Confirmed �Type
amlodipine 10 mg tablet (Norvasc) 10 mg PO DAILY Blood Pressure 08/17/24 07/16/25 History
atenolol 50 mg tablet 50 mg PO BID Blood Pressure 08/17/24 07/16/25 History
atorvastatin 10 mg tablet (Lipitor) 10 mg PO QPM High Cholesterol 08/17/24 07/16/25 History
lisinopril 40 mg tablet 40 mg PO DAILY Blood Pressure 08/17/24 07/16/25 History
apixaban 5 mg tablet (Eliquis) 5 mg PO BID Blood clot 08/20/24 07/16/25 Rx
prevention/tx #60 tabs
acetaminophen 650 mg 650 mg PO Q12H PRN PRN 07/16/25 07/16/25 History
tablet,extended release
ascorbic acid (vitamin C) 500 mg 500 mg PO DAILY 07/16/25 07/16/25 History
tablet (Vitamin C)
cholecalciferol (vitamin D3) 50 50 mcg PO DAILY 07/16/25 07/16/25 History
mcg (2,000 unit) tablet (Vitamin
D3)
furosemide 40 mg tablet 40 mg PO DAILY 07/16/25 07/16/25 History
therapeutic multivitamin 1 tab PO DAILY 07/16/25 07/16/25 History
vitamin E 670 mg (1,000 unit) 670 mg PO DAILY 07/16/25 07/16/25 History
capsule
Review of Systems
-
History Source: Patient and Family
All other systems: Negative unless noted
Constitutional: Weight Gain
EENT: No Symptoms
Respiratory: Cough and Trouble Breathing
Cardiac: No Symptoms
Abdomen/GI: Other (Distention)
: No Symptoms
Musculoskeletal: Edema
Skin: No Symptoms
Neurological: No Symptoms
Endocrine: No Symptoms
Hematologic/Lymphatic: No Symptoms
Physical Exam
Vital Signs
Pulse Resp BP Pulse Ox
70 16 106/69 98
07/16/25 13:20 07/16/25 13:20 07/16/25 13:20 07/16/25 15:10
Lab Results
07/16/25 13:29
07/16/25 13:28
[id number] Pept 5570 pg/ml 07/16/25 13:29
Physical exam:
GENERAL: no acute distress
EYE: sclera anicteric
NECK: Supple, + JVD
ENT: normal nose, moist mucosal membranes
CARDIAC: Irregularly irregular, +S1/S2, 2/6 systolic murmur; no rubs, or gallops
CHEST/PULMONARY: Normal effort, diffuse crackles
ABDOMEN: Soft, distended, nontender
NEUROLOGICAL: Alert and oriented x3
SKIN: Warm and dry, no rash.; 2+ bilateral lower extremity edema
PSYCH: Normal and appropriate interaction.
Telemetry shows atrial fibrillation with controlled ventricular response
Impression / Plan
-
Wellness Rn: Dr. Ramírez
Impression:
Acute on chronic heart failure with preserved ejection fraction
� EF August 24 2555-60%, mild to moderate TR
� BNP 5500
� Evidence cardiomegaly on chest x-ray
� Volume overload on examination
Acute hyponatremia
Hypokalemia
Hypertension
Hyperlipidemia
Atrial fibrillation, chronic, persistent
� DCCV 10/2024 with recurrence of AF
� [id number]: 3 (hypertension, heart failure, gender). Eliquis 5 mg twice a day for stroke risk reduction
� Rate controlled with atenolol 50 mg twice daily
�Initial presenting EKG demonstrates AF, rate controlled (52 bpm)
Chronic alcohol use disorder
Chronic tobacco use disorder
Pulmonary nodules
ECHO 08/18/2024: EF 55 to 60%, mild concentric LVH, moderately dilated RA, mild to moderate TR, PAP 25 to 30 mmHg
Recommendations:
� Repeat 2D echocardiogram to assess cardiac size, shape, function, and valvular anatomy in setting of acute on chronic heart failure
� Discussed with nephrology, Dr Razo, plan for IV diuresis with hypertonic saline in the setting of volume overload and hyponatremia
� Continue anticoagulation for stroke risk reduction, atenolol for now with stable renal function
� Monitor electrolytes, renal function, intake and output, daily weight
� Further recommendations to follow testing
Discussed with emergency department, Dr. Razo
Data Reviewed
-
EKG: Tracing Personally Visualized and interpreted
Radiology: Image Personally Visualized and interpreted and Report Reviewed by me
Medical Tests (Nuc Med, Echo etc): Report Reviewed by me
Labs: Labs Reviewed by me
--- NOTE | 2025-07-16 15:45 | HPS.HSE ---
Addendum entered and electronically signed by Izzy Bright MD 07/16/25 16:48:
This is an addendum to the H&P written by Marlene Hoyt on 07/16/2025. �Patient seen and examined independently with [employer]ICIAN.
59-year-old female past medical history of atrial fibrillation, hypertension, hyponatremia, chronic tobacco use, hyperlipidemia, presenting with shortness of breath for few weeks worse with exertion. �Generalized swelling throughout the body. �Went
to primary care physician and was treated with Lasix without relief.
Vital signs unremarkable.
Labs show sodium of 112. �Magnesium 1.5. �Mild transaminitis. �Cardiac BNP of 5500.
Chest x-ray shows moderate to severe cardiomegaly with interval increase in the size of heart. �Mild asymmetric perihilar pattern left upper lobe.
Patient with severe asymptomatic hyponatremia with sodium of 112 secondary to heart failure. �Hypertonic saline. �Check BMP every 4 hours. �Nephrology consulted.
Patient with anasarca secondary to acute CHF exacerbation. �Check echocardiogram. �IV Lasix 80 daily. �Cardiology consulted.
Original Note:
Family Physician
-
Family Physician: Charlotte Arevalo
Chief Complaint
-
sob
LE edema
History of Present Illness
59-year-old female with history hypertension, hyperlipidemia, paroxysmal atrial fibrillation on Eliquis who presents to the emergency department with 3 weeks of exertional dyspnea as well as abdominal distention and lower extremity edema. patient
stated swelling all over the body. denied orthopnea. she gained 30lbs. her hctz was discontinued in August due to hyponatremia due to electrolyte imbalance. patient was evaluated by PCP, prescribed Lasix, following that she saw her cardiology who
placed her on Lasix with no relief in her symptoms. denied SALVADOR, dizzy or syncope. denied fever, chills, cough, congestion. denied chest pain. denied abdominal pain,n,,vd. denied dysuria or hematuria.
she was noted hyponatremic. 3% sodium chloried in ER. recived lasix in ER. admitting for further management.
Medical History
Past Medical History
Past Medical History: Reports Other
Additional Past Medical History:
Hyperlipidemia, cataracts, hypertension, atrial fib,
Past Surgical History: Reports Other
Additional Past Surgical History:
cardioversion
Social History
Tobacco: Smoker (10 cig daily)
Alcohol: Occasional
Drug: None
Family History
Family History: Not pertinent
Allergies / Home Medications
Allergies reflects when Allergies were last updated in [facility].
Home Medications with original date entered in [facility]
Allergy/Medication List:
Allergies
Allergy/AdvReac Type Severity Reaction Status Date / Time
No Known Allergies Allergy Verified 07/16/25 13:19
Home Medications
amlodipine 10 mg tablet (Norvasc) 10 mg PO DAILY Blood Pressure 08/17/24
atenolol 50 mg tablet 50 mg PO BID Blood Pressure 08/17/24
atorvastatin 10 mg tablet (Lipitor) 10 mg PO QPM High Cholesterol 08/17/24
lisinopril 40 mg tablet 40 mg PO DAILY Blood Pressure 08/17/24
apixaban 5 mg tablet (Eliquis) 5 mg PO BID Blood clot prevention/tx #60 tabs 08/20/24
acetaminophen 650 mg tablet,extended release 650 mg PO Q12H PRN PRN 07/16/25
ascorbic acid (vitamin C) 500 mg tablet (Vitamin C) 500 mg PO DAILY 07/16/25
cholecalciferol (vitamin D3) 50 mcg (2,000 unit) tablet (Vitamin D3) 50 mcg PO DAILY 07/16/25
furosemide 40 mg tablet 40 mg PO DAILY 07/16/25
therapeutic multivitamin 1 tab PO DAILY 07/16/25
vitamin E 670 mg (1,000 unit) capsule 670 mg PO DAILY 07/16/25
Review of Systems
-
Constitutional: Reports No Symptoms
EENT: Reports No Symptoms
Respiratory: Reports Trouble Breathing
Cardiac: Reports No Symptoms
Abdomen/GI: Reports No Symptoms
: Reports No Symptoms
Musculoskeletal: Reports Edema (generalized)
Skin: Reports No Symptoms
Neurological: Reports No Symptoms
Endocrine: Reports No Symptoms
Hematologic/Lymphatic: Reports No Symptoms
Psych: Reports No Symptoms
Physical Exam
Vital Signs
Vital Signs
Pulse Resp BP Pulse Ox
70 16 106/69 98
07/16/25 13:20 07/16/25 13:20 07/16/25 13:20 07/16/25 15:10
Physical Exam
General: Well Developed, Well Nourished and No Apparent Distress
HEENT: NormoCephalic, Moist mucous membranes and Atraumatic
Respiratory: Rales and Crackles
Cardiac: S1/S2 and Regular Rhythm; No Murmur or Rub
GI: Soft, Non Tender, Non Distended and Normal Bowel Sounds; No Organomegaly
Rectal: Deferred by Provider
Musculoskeletal: No Clubbing, No Cyanosis and Other (generalized edema)
Skin: No Rash
Neuro: AO x 3 and Nonfocal/grossly intact
Psych: Calm
Laboratory Results
-
07/16/25 13:29
07/16/25 13:28
Laboratory Results
Total Bilirubin 1.5 mg/dl (0.2-1.3) H 07/16/25 13:28
AST 49 U/L (14-36) H 07/16/25 13:28
ALT 39 U/L (0-35) H 07/16/25 13:28
Alkaline Phosphatase 84 U/L (38-126) 07/16/25 13:28
Data Reviewed
-
Diagnostic Radiology: Report Reviewed by me
Lab Data: Labs Reviewed by me
Impression/Plan
-
# CHF exacerbation
- BNP 5570
- IV Lasix, fluid restriction, strict RUBI and daily weight
- Obtain echocardiogram
- Cardiology consulted
-chest x r ay with Moderate to severe cardiomegaly with interval increase in size of the heart since August 2024. Diagnostic possibilities are (1) a CARDIOMYOPATHY or (2) less likely pericardial effusion.
2. Elevated pulmonary venous pressures.
3. Mild asymmetric perihilar opacity in the left upper lobe. Diagnostic possibilities are (1) left upper lobe pneumonia or (2) mild asymmetric alveolar pulmonary edema.
#acute on chronic Hyponatremia likely hypervolemic
-na 112
- 3% insulin in the ER
- Nephrology consulted
#hepatic congestion
-ast 49,alt 39
-trend LFTs
#essential HTN
-Norvasc,lisinopril continued with hold parameter
#paroxysmal atrial fib
-eliquis,atenolol continued
#HLD
-statin continued
#DVT prophylaxis
-eliquis
#CODE status
-full code
[2025-07-16 15:47] LABS: Magnesium 1.5 mg/dl (1.6-2.3)
[2025-07-16 16:15] LABS: Troponin I 0.017 ng/ml
[2025-07-16] MEDS: SODIUM CHLORIDE 3% 250 IV (16:42)
[2025-07-16] MEDS: LASIX 80 MG IV (16:42)
[2025-07-16 17:34] LABS: Urine Character Clear (Clear)
[2025-07-16 17:45] LABS: Urine Red Blood Cell 0-2 /HPF (0-2); Urine Squamous Cell >30 /LPF (Few); Urine White Cell 0-2 /HPF (0-5)
--- NOTE | 2025-07-16 18:30 | PTCARENOTE ---
Rec'd pt at 1740 via stretcher from the ED. Immediately upon arrival had to use the commode and voided 700 mls of pale yellow urine. Rec'd pt awake alert and oriented. EUGENE and gait steady getting up to use the commode. Denies dizziness or headache
and denies feeling tired or confused like she did in August when she was hospitalized for low sodium. Denies pain or discomfort. Skin is pink and warm. Hands are cool and therese red- nailbeds are pink with refill < 2 sec. Respirs are unlabored -
tolerated movement and sats are 92-95%. BS are decreased at the bases with few R base crackles. Monitor AFib in the 70's. + pulses. +1 LE edema. Pt does relate that she has had a 30 lb wt gain over the past month. Denies chest pain. Abd is soft with
+ BS. Just voided a second time for 600mls. 3% Saline infusing at 20 ml/hr via RAC IV site. Pt able to turn and reposition herself. Plan of care reviewed and call wenceslao in reach. Currently eating dinner. in and updated. Dr. Razo updated
and will get BMP at 1999
[2025-07-16] MEDS: ELIQUIS 5 MG PO (19:40)
[2025-07-16] MEDS: LIPITOR 10 MG PO (19:42)
[2025-07-16] MEDS: TENORMIN 50 MG PO (20:26)
[2025-07-16 20:42] LABS: APTT 39.4 Sec (23.4-35.0); INR 1.89; PT 21.9 Sec (11.4-14.6)
[2025-07-16 21:20] LABS: Blood Urea Nitrogen 12 mg/dl (7-17); Calcium 8.7 mg/dl (8.4-10.2); Carbon Dioxide 29 mmol/L (22-30); Chloride 80 mmol/L (98-107); Estimated Creatinine Clearance 112 ml/min; Glucose 110 mg/dl (70-99); Potassium 2.9 mmol/L (3.5-5.1); Sodium 115 mmol/L (135-145); eGFR > 60.00
[2025-07-16] MEDS: KCL 40 MEQ PO (21:39)
--- NOTE | 2025-07-16 22:13 | W.PN.UPDATE ---
Update Note
Progress Note Update
07/16/25
2129- Resulted Na level 115, Dr. Razo bay stocker updated results. Recommendations received: continue 3% at 20ml/hr, recheck BMP at 0100. Max correction goal 118, if 118 or over will stop 3% with 0100 results. Patient has diuresed 900cc of
urine. RN updated with plan of care.
--- NOTE | 2025-07-16 22:24 | PTCARENOTE ---
Pt received awake alert and oriented. 3% NaCl infusing as ordered. Labs drawn and called to Dr. Razo by iron and steel work supervisor ANDRES. Pt given po KCl as ordered. Continues to void large amts urine. See I/O flowsheet for totals. Sats 93-95% on 4L NC.
Assessment as charted.
[2025-07-17] VITALS (26 sets, daily range): BP systolic 103–146; BP diastolic 62–88; BMI 30.2
[2025-07-17 01:35] LABS: Blood Urea Nitrogen 10 mg/dl (7-17); Calcium 8.6 mg/dl (8.4-10.2); Carbon Dioxide 28 mmol/L (22-30); Chloride 84 mmol/L (98-107); Estimated Creatinine Clearance 112 ml/min; Glucose 103 mg/dl (70-99); Potassium 3.1 mmol/L (3.5-5.1); Sodium 120 mmol/L (135-145); eGFR > 60.00
[2025-07-17] MEDS: KCL 40 MEQ PO ×2 (01:51→08:15)
--- NOTE | 2025-07-17 02:12 | PTCARENOTE ---
Na+ up to 120. 3%NaCl now on hold. Additional po potassium given for K+ 3.1
[2025-07-17 05:14] LABS: Hematocrit 34.8 % (37.0-47.0); Hemoglobin 12.6 g/dL (12.0-16.0); Mean Corp Hgb Conc. 36.2 g/dL (33.0-37.0); Mean Corpuscular Volume 88.5 fL (81.0-99.0); Platelet Count 181 10^3/uL (130-400); Red Cell Dist. Width 12.9 % (11.5-14.5)
--- NOTE | 2025-07-17 05:24 | PTCARENOTE ---
Pt sats dropping to mid- high 80s when sleeping. O2 increased to 6L NC with some improvement. Sats mid 90s when awake. Denies resp distress. Pt snores fairly loudly. Will continue to monitor.
[2025-07-17 05:48] LABS: ALT (SGPT) 37 U/L (0-35); AST (SGOT) 41 U/L (14-36); Albumin 3.6 g/dl (3.5-5.0); Alkaline Phosphatase 82 U/L (38-126); Blood Urea Nitrogen 9 mg/dl (7-17); Calcium 8.6 mg/dl (8.4-10.2); Carbon Dioxide 27 mmol/L (22-30); Chloride 85 mmol/L (98-107); Estimated Creatinine Clearance 111 ml/min; Glucose 94 mg/dl (70-99); HDL Cholesterol 45 mg/dl; LDL Cholesterol, Calculated 71 mg/dl; Magnesium 1.5 mg/dl (1.6-2.3); Potassium 3.6 mmol/L (3.5-5.1); Sodium 119 mmol/L (135-145); Total Protein 5.9 g/dl (6.3-8.2); Very Low Density Lipoprotein 13 mg/dl (0-30); eGFR > 60.00
[2025-07-17] MEDS: MAGNESIUM SULFATE 50 IV (06:07)
--- NOTE | 2025-07-17 07:39 | W.PN.NEPH.PH ---
Today's Communication / Plan
-
Maintain fluid restriction
40 mg IV
Check electrolytes at
Number 3% saline
Potassium replete
Assessment/Plan
-
Impression:
Hyponatremia (112)
History of hypertension
History of paroxysmal atrial fibrillation
Volume overload
Dyslipidemia
Hypertension
Plan:
Hypervolemic hyponatremia
- Status post 3% saline at 20 cc/h given profoundly low serum sodium with high risk for seizure, hypertonic drip discontinued overnight while sodium at 119
-Urine osm of 120 was more consistent with polydipsia
-40meq KCL given
-Serum sodium now up from 112-119
-Will also provide 40 mg of IV Lasix as patient appears to be grossly volume overloaded with some respiratory compromise
-Echocardiogram reviewed notable for dilated and dysfunctional right ventricle
-Accurate I's and O's, 1200 cc/day fluid restriction,
- Check urinalysis for possible nephrotic syndrome given recent evolution of edema with normal GFR: 2+ albumin will quantitate proteinuria with urine protein to creatinine ratio
- Recheck electrolytes at noon
-Patient at high clinical risk with severe hyponatremia, hypoxia and decompensated CHF
-
-
Date of Service: July 17, 2025
CC / HPI / ROS
-
Chief Complaint:
Hyponatremia
History of Present Illness:
Serum sodium up from 112-119 following 3% infusion and IV Lasix
Hemodynamically stable
Potassium
Review of Systems:
Grossly nonoliguric
Remains on oxygen but feeling better
Weights
Labs
-
Labs:
WBC 8.4 10^3/uL (4.8-10.8) 07/17/25 04:59
RBC 3.93 10^6/uL (4.20-5.40) L 07/17/25 04:59
Hgb 12.6 g/dL (12.0-16.0) 07/17/25 04:59
Hct 34.8 % (37.0-47.0) L 07/17/25 04:59
Plt Count 181 10^3/uL (130-400) 07/17/25 04:59
Sodium 119 mmol/L (135-145) L* 07/17/25 04:59
Potassium 3.6 mmol/L (3.5-5.1) 07/17/25 04:59
Chloride 85 mmol/L (98-107) L 07/17/25 04:59
Carbon Dioxide 27 mmol/L (22-30) 07/17/25 04:59
BUN 9 mg/dl (7-17) 07/17/25 04:59
Creatinine 0.6 mg/dL (0.6-1.0) 07/17/25 04:59
eGFR > 60.00 07/17/25 04:59
Glucose 94 mg/dl (70-99) 07/17/25 04:59
Calcium 8.6 mg/dl (8.4-10.2) 07/17/25 04:59
Phosphorus 3.6 mg/dl (2.5-4.5) 07/17/25 04:59
Mxt-S-Qvdrdlrnork Pept 5570 pg/ml 07/16/25 13:29
Albumin 3.6 g/dl (3.5-5.0) 07/17/25 04:59
Physical Exam
-
Vital Signs:
Vital Signs
Temp Pulse Resp BP Pulse Ox
98 F 63 13 121/82 95
07/17/25 05:00 07/17/25 06:00 07/17/25 06:00 07/17/25 06:00 07/17/25 06:00
Cardiovascular:: Regular rate and rhythm
Respiratory:: Bilateral: Coarse and Bilateral: Wheeze
Lung Excursion:: Normal
Abdomen:: Nontender and Soft
Bowel Sounds:: Normal
Extremity Edema:: +2: Bilateral:
Pardo Catheter: No
[2025-07-17] MEDS: LASIX 40 MG IV (08:14)
[2025-07-17] MEDS: ELIQUIS 5 MG PO ×2 (08:15→20:33)
[2025-07-17] MEDS: LASIX IV (08:15)
[2025-07-17] MEDS: ZESTRIL 40 MG PO (08:16)
--- NOTE | 2025-07-17 08:28 | CON.INTV ---
Consultation
Consultation Request
Date/Time Consultation Requested: 07/16/2025 - 1922
Date/Time Consultation Performed: 07/17/2025825
Requesting Provider: ANDRES Jack
Performing Provider: Dr. Jones
Reason for Consultation: Severe hyponatremia
Medical History
-
Chief Complaint: Weight gain + SOB
History of Present Illness:
59-year-old female with a past medical history of chronic HFpEF, hypertension, mixed hyperlipidemia, A-fib and Eliquis, history of hyponatremia and cognitive impairment who presents with weight gain + SOB. Of note, she saw her linter saw sharpener on
07/09/2025 and was started on 40 mg Lasix due to volume overload. Advised to limit her sodium and fluid intake. She is also had 3 weeks of lower extremity edema + abdominal distention. Her HCTZ had been discontinued in August due to hyponatremia.
She was saturating 90% on room air, pulse rate 70, respiratory rate 16 and BP 106/69. Serum sodium found to be 112 and previously she was 129 in August 2024. Chloride level also low at 76, with serum osmolarity 235. Nephrology consulted and
patient recommended to start 3% hypertonic saline. She was admitted to the ICU for further management and printed circuit layout taper service consulted for additional recommendations.
When I saw the patient, she was resting in bed, in no acute distress. Heart rate 67, BP 127/80, and saturating 94% on 4 L/min nasal cannula. She has been up out of bed, and has minimal SOB with exertion.
PMHx: Mixed hyperlipidemia, hypertension, right eye cataract, A-fib on Eliquis, history of hyponatremia, history of cognitive impairment, chronic HFpEF
PSHx: Cardioversion (October 2024)
Past Medical History
Past Medical History: Other (Above as per HPI)
Past Surgical History: Other (Above as per HPI)
Social History
Tobacco: Smoker
Alcohol: Occasional
Drug: None
Family History
Family History: CAD (Father), Diabetes (Mother), Hypertension (Father) and Other (Father: A-fib)
Allergies / Home Medications
Allergies
Allergy/AdvReac Type Severity Reaction Status Date / Time
No Known Allergies Allergy Verified 07/16/25 13:19
Home Medications
�Medication �Instructions �Recorded �Confirmed �Last Taken �Type
amlodipine 10 mg tablet (Norvasc) 10 mg PO DAILY Blood Pressure 08/17/24 07/16/25 07/16/25 History
atenolol 50 mg tablet 50 mg PO BID Blood Pressure 08/17/24 07/16/25 07/16/25 History
atorvastatin 10 mg tablet (Lipitor) 10 mg PO QPM High Cholesterol 08/17/24 07/16/25 07/15/25 History
lisinopril 40 mg tablet 40 mg PO DAILY Blood Pressure 08/17/24 07/16/25 07/16/25 History
apixaban 5 mg tablet (Eliquis) 5 mg PO BID Blood clot 08/20/24 07/16/25 07/16/25 Rx
prevention/tx #60 tabs
acetaminophen 650 mg 650 mg PO Q12H PRN PRN 07/16/25 07/16/25 07/15/25 History
tablet,extended release
ascorbic acid (vitamin C) 500 mg 500 mg PO DAILY Supplement 07/16/25 07/16/25 07/16/25 History
tablet (Vitamin C)
cholecalciferol (vitamin D3) 50 50 mcg PO DAILY Supplement 07/16/25 07/16/25 07/16/25 History
mcg (2,000 unit) tablet (Vitamin
D3)
furosemide 40 mg tablet 40 mg PO DAILY Fluid 07/16/25 07/16/25 07/16/25 History
Retention/Swelling
therapeutic multivitamin 1 tab PO DAILY Supplement 07/16/25 07/16/25 07/16/25 History
vitamin E 670 mg (1,000 unit) 670 mg PO DAILY Supplement 07/16/25 07/16/25 07/16/25 History
capsule
Review of Systems
-
History Source: Patient
All other systems: Negative unless noted
Vitals / Labs / Diagnostic Testing
Vital Signs
Temp Pulse Resp BP Pulse Ox
97.8 F 69 19 127/74 98
07/17/25 08:15 07/17/25 10:41 07/17/25 08:40 07/17/25 10:41 07/17/25 10:38
Lab Data
07/17/25 04:59
Laboratory Results
07/16/25
20:24
PT 21.9 H
INR 1.89
APTT 39.4 H
Diagnostic Testing:
Physical Exam
-
HEENT: Normocephalic and Anicteric
Cardiovascular: Irregular Rhythm (Irregularly irregular) and Peripheral Edema (Trace bilateral lower extremity edema)
Respiratory: Wheeze (negative), Rales (Faint bibasilar rales), Rhonchi (negative) and Non-Labored Respirations
GI: Soft, Non Distended, Non Tender and Normal Bowel Sounds
Neurology: Tremors (negative) and Other (Sleepy today; easily arousable to voice, answering questions appropriately)
Skin: Warm and Dry
General: Respiratory Distress (negative), Fever (negative) and Chills (negative)
Assessment
-
Assessment: 59-year-old female with a past medical history of chronic HFpEF, hypertension, mixed hyperlipidemia, A-fib and Eliquis, history of hyponatremia and cognitive impairment who presents with weight gain + SOB. Of note, she saw her
linter saw sharpener on 07/09/2025 and was started on 40 mg Lasix due to volume overload. Advised to limit her sodium and fluid intake. She is also had 3 weeks of lower extremity edema + abdominal distention. Her HCTZ had been discontinued in August due
to hyponatremia. She was saturating 90% on room air, pulse rate 70, respiratory rate 16 and BP 106/69. Serum sodium found to be 112 and previously she was 129 in August 2024. Chloride level also low at 76, with serum osmolarity 235. Nephrology
consulted and patient recommended to start 3% hypertonic saline. She was admitted to the ICU for further management and printed circuit layout taper service consulted for additional recommendations.
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
Impression:
#Acute on chronic hyponatremia with hypervolemic, hypotonic hyponatremia (baseline sodium ~129)
#Acute on chronic HFpEF with mild acute interstitial edema seen on CXR
#Acute respiratory failure with hypoxia due to acute cardiogenic pulmonary edema
#Hypomagnesemia
#Chronic transaminitis
#A-fib on Eliquis
#Hypertension/hyperlipidemia
Plan:
- s/p 3% saline per nephrology with improvement in serum sodium
- Defer any additional 3% to nephrology
- Serial BMP to monitor trend of serum sodium while taking caution not to rapidly correct; goal <8-10 mmol/L in 24 hours, and <16-18 mmol/L in 48 hours
- TSH WNL at 1.31
- Fluid restriction per nephrology
- Continue with diuresis, currently on 80 mg Lasix once daily
- Replete electrolytes while being diuresed, with goal K>4, Mg>2
- proBNP elevated at 5570
- trend UOP and strict I/O
- Maintain SpO2 >90-94%, weaning down supplemental O2 flow rate as tolerated
- Recommend ambulatory pulse oximetry prior to discharge, unless she is on room air, saturating 96% or above and rest
- Maintain MAP>65
- Trend LFTs
- Maintain euglycemia with goal BG 140-180
- Trend H/H and transfuse if needed to keep Hb>7g/dL; keep plt>20k, unless there is concern for bleeding then keep plt>50k
- prn nebulized bronchodilators - not currently bronchospastic
- Incentive spirometer encouraged 10x per hour for at least 4 hrs a day
- PT/OT
- Fluid and sodium restricted diet
- DVT ppx: Eliquis
Patient's sodium is now >120. Discussion held with hospitalist and nephrology, and she is appropriate for downgrade out of ICU to telemetry. Continue monitoring serum sodium to avoid overcorrection. If there are any questions regarding serum
sodium please contact hospitalist versus nephrology.
No additional recommendations at this time. Tourist Adviser/Pulmonary service will now sign off. Thank you for allowing us to be involved in the care of this patient. Please reconsult if there are any additional questions/concerns, or if patient's
respiratory status deteriorates.
Data:
CXR 07/16/2025:
1. Moderate to severe cardiomegaly with interval increase in size of the heart since August 2024. Diagnostic possibilities are (1) a CARDIOMYOPATHY or (2) less likely pericardial effusion.
2. Elevated pulmonary venous pressures.
3. Mild asymmetric perihilar opacity in the left upper lobe. Diagnostic possibilities are (1) left upper lobe pneumonia or (2) mild asymmetric alveolar pulmonary edema.
Total time spent today was 76 minutes for this encounter. Time includes reviewing laboratory test/imaging results, reviewing pertinent medical records, obtaining and reviewing medical history, performing an appropriate exam, ordering medications,
tests and procedures. Time also includes documentation of this encounter, coordinating patient care and communicating with other healthcare professionals. Total time does not include separately billed tests performed on this date of service.
--- NOTE | 2025-07-17 08:30 | PTCARENOTE ---
Assumed care of pt at 0715 following shift report. Pt asleep- woken to name. Denies c/o pain or SOB. Pt received on Humidified O2 at 6l/min via NC w/ POx 93-94%. Pt reports feeling 'stuffy' and vocal quality suggestive of nasal congestion.
Occasional moist non-productive cough noted. Physical assessment competed as documented. Pt placed on portable telemetry pack and supervision provided as pt OOB to BSC to void. Gait steady. Pt denies feeling lightheaded w/ increased activity. Call
billy w/in pt reach. Safe environment maintained.
--- NOTE | 2025-07-17 08:53 | W.PN.HOSP.TC ---
Today's Communication/Plan
-
see plan
Assessment / Plan
Assessment / Plan
Gen: NAD, AAOx3.
Eyes: EOMI, PERRLA, no scleral icterus.
Neck: supple.
CV: RRR, +S1/S2, no m/r/g.
Resp: faint rales in the bases
Abd: +BS, soft, NT, ND
Skin: No rashes. trace-1+ anasarca
Neuro: CN 2-12 intact, non-focal.
Psych: Normal mood and affect.
Echo:
1. Ejection fraction is 50-55% by visual assessment.
2. Normal left ventricular size, wall thickness and systolic function. No regional wall motion abnormalities are seen.
3. Compared to a prior transthoracic echocardiogram study from August 2024 which was reviewed, There is no significant change. Right ventricle was reported as normal in size and function in August 2024 but appears severely dilated and hypokinetic
as on current study.
4. D-shaped septum in diastole consistent with right ventricular pressure overload.
5. Indexed left atrial volume is severely abnormal (>48 ml/m2).
6. Right ventricular cavity size is severely dilated.
7. Right ventricular systolic function is severely decreased.
8. Severe tricuspid regurgitation.
9. Severely dilated right atrium.
Acute hypoxemic respiratory failure due to acute on chronic HFpEF:
-with severe hyponatremia, Na 112 on admission
-with anasarca on admission
-currently on 5L NC O2
-echo above
-s/p 3% NS and IV Lasix
-renal following, discussed with Dr. Razo, no further 3% NS, check BMP at 1200
-last Na 119, would not correct more that 10meq/day
-minimal transaminitis likely hepatic congestion
-cont IV Lasix
-cont FR 1200cc/day
-dailt wts, I/Os
Other problems:
Essential HTN: cont Norvasc/BB/ACEi
PAF: cont Eliquis/BB
HLD: cont statin
FULL/Eliquis
Total critical care time spent = 33 min (managing life threatening hyponatremia and CHF)
Anticipated Discharge: > 48 hours
Subjective/Interval History
-
Date of Service: July 17, 2025
SOB improving
Objective Data
-
Labs:
Laboratory Results
07/16/25 07/17/25 07/17/25
20:51 01:05 04:59
WBC 8.4
Hgb 12.6
Hct 34.8 L
Plt Count 181
Sodium 115 L* 120 L 119 L*
Potassium 2.9 L 3.1 L 3.6
Chloride 80 L 84 L 85 L
Carbon Dioxide 29 28 27
BUN 12 10 9
Creatinine 0.6 0.6 0.6
Glucose 110 H 103 H 94
Calcium 8.7 8.6 8.6
Total Bilirubin 1.2
AST 41 H
ALT 37 H
Alkaline Phosphatase 82
07/17/25
13:00
WBC
Hgb
Hct
Plt Count
Sodium Pending
Potassium Pending
Chloride Pending
Carbon Dioxide Pending
BUN
Creatinine
Glucose
Calcium
Total Bilirubin
AST
ALT
Alkaline Phosphatase
Vital Signs:
Vital Signs
Temp Pulse Resp BP Pulse Ox
98 F 70 13 126/77 95
07/17/25 05:00 07/17/25 08:16 07/17/25 06:00 07/17/25 08:16 07/17/25 06:00
I&O
07/16/25 07/17/25 07/18/25
06:59 06:59 06:59
Intake Total 790 / 790
Output Total 3275 / 3275
Balance -2485 / -2484
[2025-07-17] MEDS: NORVASC 10 MG PO (10:40)
[2025-07-17] MEDS: TENORMIN 50 MG PO ×2 (10:41→20:33)
--- NOTE | 2025-07-17 10:58 | PTCARENOTE ---
Pt ambulated to BR to complete AM Hygiene. Gait steady. Pt's conts to c/o 'stuffy nose'. Pt's POx noted to drop down to mid 80's when O2 off to blow nose. O2 reapplied at 6l/min. No additional complaints or changes. here to visit-updated on
pt's present condition and plan of care. Pt sitting OOB in chair.
--- NOTE | 2025-07-17 11:23 | W.PN.CARDCBS ---
Today's Communication / Plan
-
Stable cardiology status
Diuretics per nephrology given hyponatremia
Discussed with nephrology
Impression / Plan
-
Radiographer Mammographer: Dr. Ramírez
Impression:
Acute on chronic heart failure with preserved ejection fraction
� EF August 24 2555-60%, mild to moderate TR
� BNP 5500
� Evidence cardiomegaly on chest x-ray
� Volume overload on examination
Acute hyponatremia
Hypokalemia
Hypertension
Hyperlipidemia
Atrial fibrillation, chronic, persistent
� DCCV 10/2024 with recurrence of AF
� [id number]: 3 (hypertension, heart failure, gender). Eliquis 5 mg twice a day for stroke risk reduction
� Rate controlled with atenolol 50 mg twice daily
�Initial presenting EKG demonstrates AF, rate controlled (52 bpm)
Chronic alcohol use disorder
Chronic tobacco use disorder
Pulmonary nodules
ECHO 08/18/2024: EF 55 to 60%, mild concentric LVH, moderately dilated RA, mild to moderate TR, PAP 25 to 30 mmHg
Echocardiogram 07/16/2025: Ejection fraction 55%, severely hypokinetic and dilated right ventricle, severe TR,
Recommendations:
She feels better
Diuretics per nephrology given hyponatremia
Echocardiogram unchanged
Progress Note - Radiographer Mammographer
Subjective
Date of Service: July 17, 2025
No chest pain or shortness of breath
Objective
Labs:
07/17/25 04:59
Labs
Hgb 12.6 g/dL (12.0-16.0) 07/17/25 04:59
Hct 34.8 % (37.0-47.0) L 07/17/25 04:59
Plt Count 181 10^3/uL (130-400) 07/17/25 04:59
PT 21.9 Sec (11.4-14.6) H 07/16/25 20:24
INR 1.89 07/16/25 20:24
APTT 39.4 Sec (23.4-35.0) H 07/16/25 20:24
Sodium 119 mmol/L (135-145) L* 07/17/25 04:59
Potassium 3.6 mmol/L (3.5-5.1) 07/17/25 04:59
BUN 9 mg/dl (7-17) 07/17/25 04:59
Creatinine 0.6 mg/dL (0.6-1.0) 07/17/25 04:59
Glucose 94 mg/dl (70-99) 07/17/25 04:59
Troponins
07/16/25
15:34
Troponin I 0.017
Vital Signs and I&O:
Vital Signs
Temp Pulse Resp BP Pulse Ox
97.8 F 69 19 127/74 98
07/17/25 08:15 07/17/25 10:41 07/17/25 08:40 07/17/25 10:41 07/17/25 10:38
Vital Signs
Temp Pulse Resp BP Pulse Ox
97.8 F 69 19 127/74 98
07/17/25 08:15 07/17/25 10:41 07/17/25 08:40 07/17/25 10:41 07/17/25 10:38
Intake & Output
07/15/25 07/16/25 07/17/25 07/18/25
06:59 06:59 06:59 06:59
Intake Total 790 / 790 480 / 480
Output Total 3275 / 3275 1225 / 1225
Balance -2485 / -2485 -745 / -745
Physical Exam
Physical Exam
General: Well developed, well nourished in NAD.
Neck: Supple, no JVD, HJR, carotids +2 B/L, no bruits bilaterally.
Heart: Non displaced PMI, irregular, no murmurs, No S3, S4, no rubs.
Lungs: Scattered rhonchi
Extremities: No clubbing, cyanosis or edema bilaterally.
Neuro: Grossly nonfocal, awake, alert and oriented x3.
[2025-07-17 13:39] LABS: Carbon Dioxide 31 mmol/L (22-30); Chloride 85 mmol/L (98-107); Potassium 3.6 mmol/L (3.5-5.1); Sodium 123 mmol/L (135-145)
--- NOTE | 2025-07-17 14:09 | PTCARENOTE ---
Pt remains OOB in chair, ambulating to BR to void prn. Gait steady. Continues to deny any dizziness. O2 decreased to 4l/min via NC. Will continue to monitor POx. Pt w/o noted changes or new complaints. 1300 lyte results tiger texted to Dr Razo-
no plans for additional Lasix at this time. Order entered to recheck BMP at 2000 this evening.
[2025-07-17] MEDS: LIPITOR 10 MG PO (18:27)
[2025-07-17 20:41] LABS: Blood Urea Nitrogen 12 mg/dl (7-17); Calcium 9.0 mg/dl (8.4-10.2); Carbon Dioxide 31 mmol/L (22-30); Chloride 89 mmol/L (98-107); Estimated Creatinine Clearance 111 ml/min; Glucose 131 mg/dl (70-99); Potassium 3.8 mmol/L (3.5-5.1); Sodium 124 mmol/L (135-145); eGFR > 60.00
--- NOTE | 2025-07-17 21:00 | PTCARENOTE ---
Patient received resting in bed. Patient to bathroom. Voided 250 ml yellow, light nirmal urine. Washed face and brushed teeth. Patient back to bed. Patient A+A+Ox3. No neurological deficits noted. No c/o pain or discomfort. No c/o headache,
dizziness or lightheadedness. Ambulates without difficulty. O2 at 6L via NC. SpO2 94%. Atrial Fibrillation. Heart rate 70's. Patient with no c/o chest pain, pressure or discomfort. Abdomen soft, nontender. Normoactive bowel sounds. No BM.
No c/o nausea. No vomiting. Trace lower extremity edema. Positive pulses. Afebrile. Ordered lab work collected and sent. Assessment as documented.
--- NOTE | 2025-07-17 22:00 | RESPNOTE ---
PT has an order for BIPAP, but it is for increased WOB on a PRN basis. Not needed at this time and remains on STBY at the PT's bedside.
[2025-07-18] VITALS (9 sets, daily range): BP systolic 119–133; BP diastolic 73–89; BMI 30.3
--- NOTE | 2025-07-18 | PTCARENOTE ---
Patient sleeping without difficulty. No further changes from previous assessment.
--- NOTE | 2025-07-18 05:00 | PTCARENOTE ---
Patient A+A+Ox3. No c/o pain or discomfort. AM lab work collected and sent. Voiding in bathroom without difficulty. Standing scale weight 85.1 kg. Back to bed. Assessment/Interventions as documented.
[2025-07-18 05:44] LABS: Hematocrit 34.0 % (37.0-47.0); Hemoglobin 12.1 g/dL (12.0-16.0); Mean Corp Hgb Conc. 35.6 g/dL (33.0-37.0); Mean Corpuscular Volume 91.6 fL (81.0-99.0); Platelet Count 223 10^3/uL (130-400); Red Cell Dist. Width 13.2 % (11.5-14.5)
[2025-07-18 06:25] LABS: ALT (SGPT) 36 U/L (0-35); AST (SGOT) 45 U/L (14-36); Albumin 3.8 g/dl (3.5-5.0); Alkaline Phosphatase 74 U/L (38-126); Blood Urea Nitrogen 10 mg/dl (7-17); Calcium 9.0 mg/dl (8.4-10.2); Carbon Dioxide 29 mmol/L (22-30); Chloride 90 mmol/L (98-107); Estimated Creatinine Clearance 111 ml/min; Glucose 108 mg/dl (70-99); Magnesium 1.7 mg/dl (1.6-2.3); Potassium 4.1 mmol/L (3.5-5.1); Sodium 124 mmol/L (135-145); Total Protein 6.3 g/dl (6.3-8.2); eGFR > 60.00
--- NOTE | 2025-07-18 07:47 | W.PN.NEPH.PH ---
Addendum entered and electronically signed by Audi Razo DO 07/18/25 07:53:
Lasix should be 80 mg IV daily
Original Note:
Today's Communication / Plan
-
lasix
Assessment/Plan
-
Impression:
Hyponatremia (112)
History of hypertension
History of paroxysmal atrial fibrillation
Volume overload
Dyslipidemia
Hypertension
Plan:
Hypervolemic hyponatremia
- Status post 3% saline at 20 cc/h given profoundly low serum sodium with high risk for seizure, hypertonic drip discontinued overnight while sodium at 119
-Urine osm of 120 was more consistent with polydipsia
-40meq KCL given
-Serum sodium now up from 112-119 to 124
-Will also provide 40 mg of IV Lasix as patient appears to be grossly volume overloaded with some respiratory compromise, maintain fluid restriction
-Echocardiogram reviewed notable for dilated and dysfunctional right ventricle
-Accurate I's and O's, 1200 cc/day fluid restriction,
- Checked urinalysis for possible nephrotic syndrome given recent evolution of edema with normal GFR: 2+ albumin will quantitate proteinuria with urine protein to creatinine ratio
-
-Patient at high clinical risk with severe hyponatremia, hypoxia and decompensated CHF
-
-
Date of Service: July 18, 2025
CC / HPI / ROS
-
Chief Complaint:
Hyponatremia
History of Present Illness:
Serum sodium up from 112-119 to 124 following 3% infusion and IV Lasix
Hemodynamically stable
Potassium
Review of Systems:
Grossly nonoliguric
Remains on oxygen but feeling better
Weights down
Labs
-
Labs:
WBC 9.1 10^3/uL (4.8-10.8) 07/18/25 04:16
RBC 3.71 10^6/uL (4.20-5.40) L 07/18/25 04:16
Hgb 12.1 g/dL (12.0-16.0) 07/18/25 04:16
Hct 34.0 % (37.0-47.0) L 07/18/25 04:16
Plt Count 223 10^3/uL (130-400) D 07/18/25 04:16
Sodium 124 mmol/L (135-145) L 07/18/25 05:43
Potassium 4.1 mmol/L (3.5-5.1) 07/18/25 05:43
Chloride 90 mmol/L (98-107) L 07/18/25 05:43
Carbon Dioxide 29 mmol/L (22-30) 07/18/25 05:43
BUN 10 mg/dl (7-17) 07/18/25 05:43
Creatinine 0.5 mg/dL (0.6-1.0) L 07/18/25 05:43
eGFR > 60.00 07/18/25 05:43
Glucose 108 mg/dl (70-99) H 07/18/25 05:43
Calcium 9.0 mg/dl (8.4-10.2) 07/18/25 05:43
Phosphorus 2.9 mg/dl (2.5-4.5) 07/18/25 05:43
[id number] Pept 4590 pg/ml 07/18/25 04:16
Albumin 3.8 g/dl (3.5-5.0) 07/18/25 05:43
Physical Exam
-
Vital Signs:
Vital Signs
Temp Pulse Resp BP Pulse Ox
97.6 F 67 18 126/88 93
07/18/25 07:38 07/18/25 05:00 07/18/25 04:05 07/18/25 04:05 07/18/25 05:00
Cardiovascular:: Regular rate and rhythm
Respiratory:: Bilateral: Coarse and Bilateral: Wheeze
Lung Excursion:: Normal
Abdomen:: Nontender and Soft
Bowel Sounds:: Normal
Extremity Edema:: +2: Bilateral:
Pardo Catheter: No
[2025-07-18] MEDS: LASIX 80 MG IV (08:21)
[2025-07-18] MEDS: TENORMIN 50 MG PO ×2 (08:26→20:19)
[2025-07-18] MEDS: ZESTRIL 40 MG PO (08:26)
[2025-07-18] MEDS: ELIQUIS 5 MG PO ×2 (08:26→20:19)
[2025-07-18] MEDS: NORVASC 10 MG PO (08:26)
[2025-07-18] MEDS: KCL 20 MEQ PO (08:27)
--- NOTE | 2025-07-18 08:30 | PTCARENOTE ---
Assumed care of pt @ 0730 following shift report. Pt awake and ambulating in room. Denies c/o SOB or pain. Returned to bed for assessment and med administration. Physical assessment as documented. 1200ml/24hr fluid restriction reinforced. Fall
precautions reviewed. Safe environment maintained. Call wenceslao w/in pt reach.
--- NOTE | 2025-07-18 08:59 | W.PN.HOSP.TC ---
Today's Communication/Plan
-
see plan
Assessment / Plan
Assessment / Plan
Gen: NAD, AAOx3.
Eyes: EOMI, PERRLA, no scleral icterus.
Neck: supple.
CV: irreg/irreg, +S1/S2, no m/r/g.
Resp: CTAB
Abd: +BS, soft, NT, ND
Skin: No rashes. No LE edema.
Neuro: CN 2-12 intact, non-focal.
Psych: Normal mood and affect.
Echo:
1. Ejection fraction is 50-55% by visual assessment.
2. Normal left ventricular size, wall thickness and systolic function. No regional wall motion abnormalities are seen.
3. Compared to a prior transthoracic echocardiogram study from August 2024 which was reviewed, There is no significant change. Right ventricle was reported as normal in size and function in August 2024 but appears severely dilated and hypokinetic
as on current study.
4. D-shaped septum in diastole consistent with right ventricular pressure overload.
5. Indexed left atrial volume is severely abnormal (>48 ml/m2).
6. Right ventricular cavity size is severely dilated.
7. Right ventricular systolic function is severely decreased.
8. Severe tricuspid regurgitation.
9. Severely dilated right atrium.
Acute hypoxemic respiratory failure due to acute on chronic HFpEF:
-with severe hyponatremia, Na 112 on admission
-with anasarca on admission
-currently on 4L NC O2
-echo above
-s/p 3% NS and IV Lasix
-renal following
-last Na 124, would not correct more that 10meq/day
-minimal transaminitis likely hepatic congestion
-cont IV Lasix
-cont FR 1200cc/day
-dailt wts, I/Os
Other problems:
Essential HTN: cont Norvasc/BB/ACEi
PAF: cont Eliquis/BB
HLD: cont statin
FULL/Eliquis
Anticipated Discharge: 24 - 48 hours
Subjective/Interval History
-
Date of Service: July 18, 2025
SOB improving
Objective Data
-
Labs:
Laboratory Results
07/18/25 07/18/25
04:16 05:43
WBC 9.1
Hgb 12.1
Hct 34.0 L
Plt Count 223 D
Sodium Cancelled 124 L
Potassium Cancelled 4.1
Chloride Cancelled 90 L
Carbon Dioxide Cancelled 29
BUN Cancelled 10
Creatinine Cancelled 0.5 L
Glucose Cancelled 108 H
Calcium Cancelled 9.0
Total Bilirubin Cancelled 1.2
AST Cancelled 45 H
ALT Cancelled 36 H
Alkaline Phosphatase Cancelled 74
Vital Signs:
Vital Signs
Temp Pulse Resp BP Pulse Ox
97.6 F 70 18 129/88 95
07/18/25 07:38 07/18/25 08:26 07/18/25 04:05 07/18/25 08:26 07/18/25 08:42
I&O
07/17/25 07/18/25 07/19/25
06:59 06:59 06:59
Intake Total 790 / 790 960 / 960 60 / 60
Output Total 3275 / 3275 3650 / 3650 300 / 300
Balance -2485 / -2485 -2690 / -2690 -240 / -240
--- NOTE | 2025-07-18 14:04 | CM ---
Initial Assessment completed with pt at bedside.
Pt is a 59yr old admitted with CHF exacerbation
At baseline, pt lives with her in a 2 story home with 1 farzad.
Prior, pt is independent with all ADLs and Mobility, working and driving.
Pt has no current/hx of VN/DME/SNF.
PCP; Charlotte Arevalo
Pharm; [facility]
PLAN; Anticipate dc to home with no needs
--- NOTE | 2025-07-18 16:30 | PTCARENOTE ---
Pt has rested quietly today, ambulating to BR prn. Gait steady. O2 demand improved this shift. Pt on O2 at 2l/min (started shift at 6l/min) w/ Pox mid 90's. Pt noted to experience some VU after ambulating to BR. No complaints offered or changes
from previous assessment findings.
[2025-07-18] MEDS: LIPITOR 10 MG PO (18:15)
--- NOTE | 2025-07-18 22:18 | PTCARENOTE ---
Pt transferred to room 336-02- Report given to Lisa BARTON to resume care. All belongings with pt.
[2025-07-19 05:06] VITALS: BP 128/79
[2025-07-19 06:00] VITALS: BMI 29.1
[2025-07-19 06:15] LABS: Blood Urea Nitrogen 9 mg/dl (7-17); Calcium 9.3 mg/dl (8.4-10.2); Carbon Dioxide 30 mmol/L (22-30); Chloride 92 mmol/L (98-107); Estimated Creatinine Clearance 111 ml/min; Glucose 91 mg/dl (70-99); Potassium 3.8 mmol/L (3.5-5.1); Sodium 126 mmol/L (135-145); eGFR > 60.00
--- NOTE | 2025-07-19 07:13 | PTCARENOTE ---
Patient transferred to unit via wheelchair @2210 to rm 336/2, ambulate to bed with standby assist. Patient AAOx3, denies any pain or discomfort.
[2025-07-19 07:32] VITALS: BP 133/89
[2025-07-19] MEDS: LASIX 80 MG IV ×2 (08:14→15:24)
[2025-07-19] MEDS: TENORMIN 50 MG PO ×2 (08:15→20:18)
[2025-07-19] MEDS: NORVASC 10 MG PO (08:15)
[2025-07-19] MEDS: ZESTRIL 40 MG PO (08:15)
[2025-07-19] MEDS: ELIQUIS 5 MG PO ×2 (08:15→20:18)
--- NOTE | 2025-07-19 09:10 | W.PN.HOSP.TC ---
Today's Communication/Plan
-
IV diuresis
Assessment / Plan
Assessment / Plan
Physical exam:
General: Acutely ill
HEENT: Normocephalic, Atraumatic and Moist Mucous Membranes
Respiratory: Coarse crackles bilaterally; Negative Wheezes or Rhonchi
Cardiac: Regular Rhythm and S1/S2
GI: Soft, Nontender and Nondistended
Musculoskeletal: No Clubbing, No Cyanosis. There is bilateral lower extremity edema
Neuro: Awake, Alert and Oriented, no gross neurological deficit. No tremors, nystagmus, or tongue fasciculation
Psych: Calm and normal judgment and insight
A/P:
Acute hypoxic respiratory failure:
Wean oxygen as able
Diuresis
Plan to do a CTA (less likely VTE while on Eliquis), baseline ABG, and PFTs
Cardiology and pulmonary following
Discussed with at bedside at length
Acute on chronic HFpEF:
IV Lasix 80 mg today
Discontinued amlodipine
GDMT started spironolactone and Farxiga and continue lisinopril 40 mg p.o. daily
Plan to repeat limited echo tomorrow
Possibly left and right heart cath down the road
Cardiology checking chromogranin A and 24-hour urine 5-HIAA
Severe hyponatremia:
Received 3% saline
Patient received IV Lasix as well
Today sodium up to 126 (sodium has been as low as 112). Avoid rapid correction
Persistent atrial fibrillation:
On rate control with atenolol 50 mg twice a day
On anticoagulation, Eliquis 5 mg twice a day
Might need ablation down the road
Hypertension:
Continue home antihypertensive
Hyperlipidemia:
Continue home statin
Alcohol use disorder:
Start thiamine and folic acid for 3 to 5 days
Watch for signs of alcohol withdrawal
DVT prophylaxis:
Eliquis
CODE STATUS:
Full code
Total time spent on today's encounter was 52 minutes which included time spent in counseling the patient/family regarding diagnosis and treatment plan as listed above, goals of care, and symptom management. Case was discussed with nursing staff,
specialists, and care coordinators/case management. All labs and imaging personally reviewed by me. Remainder the time spent in detailed review of previous records, lab data, imaging, and other medical provider documentation.
Anticipated Discharge: > 48 hours
Subjective/Interval History
-
Date of Service: July 19, 2025
Patient still short of breath. Remains on supplemental oxygen. No chest pain
Objective Data
-
Labs:
Laboratory Results
07/19/25
05:24
Sodium 126 L
Potassium 3.8
Chloride 92 L
Carbon Dioxide 30
BUN 9
Creatinine 0.5 L
Glucose 91
Calcium 9.3
Vital Signs:
Vital Signs
Temp Pulse Resp BP Pulse Ox
97.8 F 79 18 133/89 98
07/19/25 07:32 07/19/25 08:14 07/19/25 07:32 07/19/25 08:14 07/19/25 07:32
I&O
07/18/25 07/19/25 07/20/25
06:59 06:59 06:59
Intake Total 960 / 960 540 / 540
Output Total 3650 / 3650 1700 / 1700
Balance -2690 / -2690 -1160 / -1160
[2025-07-19 10:59] VITALS: BP 110/69
--- NOTE | 2025-07-19 11:22 | W.PN.PUL3 ---
Today's Communication / Plan
-
New findings on echo, reviewed with cards--we are asked to refollow
Will begin pulmonary evaluation for new pulmonary hypertension including CTA and PFTs
Baseline ABG
If workup negative, agree to proceed with RHC on Saturday
I reviewed this in detail with patient at bedside, she is agreeable
Assessment
-
59-year-old female with a past medical history of chronic HFpEF, hypertension, mixed hyperlipidemia, A-fib and Eliquis, history of hyponatremia and cognitive impairment who presents with weight gain + SOB. Of note, she saw her frit mixer and burner on
07/09/2025 and was started on 40 mg Lasix due to volume overload. Advised to limit her sodium and fluid intake. She is also had 3 weeks of lower extremity edema + abdominal distention. Her HCTZ had been discontinued in August due to hyponatremia.
She was saturating 90% on room air, pulse rate 70, respiratory rate 16 and BP 106/69. Serum sodium found to be 112 and previously she was 129 in August 2024. Chloride level also low at 76, with serum osmolarity 235. Nephrology consulted and
patient recommended to start 3% hypertonic saline. She was admitted to the ICU for further management and soft sugar operator head service consulted for additional recommendations.
Acute on chronic hyponatremia with hypervolemic, hypotonic hyponatremia (baseline sodium ~129)
Acute on chronic HFpEF with mild acute interstitial edema seen on CXR
Acute respiratory failure with hypoxia due to acute cardiogenic pulmonary edema
Hypomagnesemia
New RV dysfunction and severe PH on ECHO
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
Right eye cataract
History of hyponatremia
History of cognitive impairment
Chronic HFpEF
Chronic transaminitis
A-fib on Eliquis
Hypertension
Hyperlipidemia
Plan:
Asked for re-eval given new ECHO findings of severe PH and RV dysfunction
She denies any prior known history of lung disease
Prior CT imaging reviewed and negative
Given her new findings, it is reasonable for us to repeat full pulmonary evaluation
We will start with CTA and PFTs
If findings are negative, agreed to proceed with RHC that is tentative slated for Saturday
I reviewed this in detail with cardiology
CHF component
Continue with diuresis, currently on 80 mg Lasix once daily
Replete electrolytes while being diuresed, with goal K>4, Mg>2
proBNP elevated at 5570
trend UOP and strict I/O
History of hyponatremia, in the past and treated at the time of her admission
s/p 3% saline per nephrology with improvement in serum sodium
Defer any additional 3% to nephrology
Serial BMP to monitor trend of serum sodium while taking caution not to rapidly correct; goal <8-10 mmol/L in 24 hours, and <16-18 mmol/L in 48 hours
TSH WNL at 1.31
Fluid restriction per nephrology
Maintain SpO2 >90-94%, weaning down supplemental O2 flow rate as tolerated
Recommend ambulatory pulse oximetry prior to discharge, unless she is on room air, saturating 96% or above and rest
- Maintain MAP>65
- Trend LFTs
- Maintain euglycemia with goal BG 140-180
- Trend H/H and transfuse if needed to keep Hb>7g/dL; keep plt>20k, unless there is concern for bleeding then keep plt>50k
- prn nebulized bronchodilators - not currently bronchospastic
- Incentive spirometer encouraged 10x per hour for at least 4 hrs a day
- PT/OT
- Fluid and sodium restricted diet
- DVT ppx: Eliquis
We will follow
Data:
CXR 07/16/2025:
1. Moderate to severe cardiomegaly with interval increase in size of the heart since August 2024. Diagnostic possibilities are (1) a CARDIOMYOPATHY or (2) less likely pericardial effusion.
2. Elevated pulmonary venous pressures.
3. Mild asymmetric perihilar opacity in the left upper lobe. Diagnostic possibilities are (1) left upper lobe pneumonia or (2) mild asymmetric alveolar pulmonary edema.
ECHO 07/16/25: 1. Ejection fraction is 50-55% by visual assessment.
2. Normal left ventricular size, wall thickness and systolic function. No regional wall motion abnormalities are seen.
3. Compared to a prior transthoracic echocardiogram study from August 2024 which was reviewed, There is no significant change. Right ventricle was reported as normal in size and function in August 2024 but appears severely dilated and hypokinetic
as on current study.
4. D-shaped septum in diastole consistent with right ventricular pressure overload.
5. Indexed left atrial volume is severely abnormal (>48 ml/m2).
6. Right ventricular cavity size is severely dilated.
7. Right ventricular systolic function is severely decreased.
8. Severe tricuspid regurgitation.
9. Severely dilated right atrium.
ECHO 08/18/24: Normal left ventricular size and systolic function. No regional wall motion abnormalities are seen. LV ejection fraction is 55-60% by Welch's method of discs. Mild concentric left ventricular hypertrophy.
Normal right ventricular size. Normal right ventricular systolic function. Indexed LA volume is moderately abnormal (42-48 mL/m2). Moderately dilated right atrium. Mild-moderate tricuspid regurgitation. Estimated pulmonary artery pressure of 25-30
mmHg. Assuming a right atrial pressure of 3 mmHg. No prior study available for comparison.
-----
Total time spent today was 55 minutes for this encounter. Time includes reviewing laboratory test/imaging results, reviewing pertinent medical records, obtaining and reviewing medical history, performing an appropriate exam, ordering medications,
tests and procedures. Time also includes documentation of this encounter, coordinating patient care and communicating with other healthcare professionals. Total time does not include separately billed tests performed on this date of service.
Subjective Data
-
Date of Service:
Date of Service: July 19, 2025
Chief Complaint: Pulmonary Follow Up
Subjective:
Doing well, no new complaints
Hypoxia, SOB ongoing
Objective Data
Data Reviewed
Vital Signs / I&O / Oxygen:
Vital Signs
Temp Pulse Resp BP Pulse Ox
98.2 F 66 17 110/69 97
07/19/25 10:59 07/19/25 10:59 07/19/25 10:59 07/19/25 10:59 07/19/25 10:59
Intake and Output
07/18/25 07/19/25 07/20/25
06:59 06:59 06:59
Intake Total 960 / 960 540 / 540
Output Total 3650 / 3650 1700 / 1700
Balance -2690 / -2690 -1160 / -1160
SaO2 97
Nasal Cannula flow liters per 1
minute
Physical Exam
General: Comfortable and Other (NAD)
HEENT: Normocephalic, Anicteric and Moist Mucous Membranes
Cardiovascular: S1-S2 and Regular Rhythm
Respiratory: Clear and Non-Labored Respirations
GI: Soft, Non Distended and Non Tender
Neurology: Awake, Alert, Oriented and No Motor Deficits
Skin: Warm, Dry and Good Color
Labs/Micro/Reports
Lab Data
07/18/25 04:16
07/19/25 05:24
--- NOTE | 2025-07-19 11:33 | W.PN.CARDCBS ---
Addendum entered and electronically signed by Dionne Bazan DO 07/19/25 20:15:
I saw and examined the patient.
The Speech Language Pathology Assistant's note was reviewed and I agree with the note.
Comment: Patient was seen and examined this morning and reseen in the afternoon after case review to discuss multidisciplinary discussions with nephrology and pulmonary. She reports improved shortness of breath although still requiring nasal
cannula O2. Denies chest pain or pressure. Reports improved shortness of breath and abdominal distention. No dizziness or lightheadedness. Denies missed or interrupted doses of Eliquis since August. No recent travel. She does smoke
approximately 10 cigarettes a day.
GEN: 59-year-old female on nasal cannula O2. No conversational dyspnea. AAO x 3
HEENT: mmm
LUNGS: Bronchovesicular breath sounds with bibasilar crackles
CV: Irregularly irregular. Positive S1-S2. 2/6 SM LSB
EXT: No clubbing or cyanosis. Trace edema
NEURO: Gross non-focal
Plan:
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
-Progressive shortness of breath, lower extremity edema, abdominal distention and weight gain despite increasing doses of oral Lasix
-ProBNP 5570.
-Echocardiograms from August and 07/16 personally reviewed. When compared to August study, right ventricle has enlarged and become severely hypokinetic with dilated annulus associated with a D-shaped centrum in diastole, severe/wide-open TR with
malcoaptation of tricuspid valve leaflets and dilated non-collapsible IVC which was not present in the August study. Additionally left ventricular systolic function appears mildly reduced, likely 45% +/- 5.
- Spoke with pulmonary and reviewed echocardiographic findings with interventional cardiology.
- A CT of her chest August 18, 2024 without contrast reported ground glass opacities concerning for either pneumonia or interstitial lung disease as well as pulmonary nodules.
- Pulmonary will initiate workup for pulmonary hypertension and thromboembolic disease (less likely as patient has been on Eliquis without interruption since August)
- Will also send initial w/u for possible cardiac carcinoid given thickening of tricuspid valve leaflets. Ordered 24 hour urine 5-HIAA, chromogranin A. Additional chest/abdomen/pelvis imaging and/or PET scan pending initial lab findings
- Diuresing with IV lasix 80mg daily. Will give an additional dose this afternoon.
- Trend renal function, LFTs and hemoglobin.
-Weight down to 179 lbs on 07/19, down 12 lbs this admission.
-Continue O2 supplementation as needed
-Will repeat limited echo tomorrow, 07/20 to reassess LV, RV function.
-Favor LHC/RHC (coronary atherosclerosis on CT imaging and risk factors), possibly Saturday 07/21.
-Continue medical therapy with atenolol and lisinopril. Will start Farxiga 10mg daily and spironolactone 12.5mg daily. CM to assess cost of SGLT2i.
-Stop amlodipine.
- TSH within normal limits.
Permanent atrial fibrillation, rate controlled
-Continue Eliquis 5mg BID. If plan is for [facility] Saturday, hold in PM tomorrow 07/20.
Coronary atherosclerosis on CT imaging
-No complaints of chest pain with negative troponins in August and this admission
-Continue lipitor.
Tobacco and alcohol cessation strongly advised
Original Note:
Today's Communication / Plan
-
Continue IV lasix, will give additional dose this afternoon
Check limited echo tomorrow to reassess LV,RV function
Check 24 hour urine 5-HIAA, chromogranin A
Consider L&RHC later this week.
Start spironolactone, farxiga.
Stop amlodipine
Impression / Plan
-
Family Living Educator: Dr. Ramírez
Impression:
Acute on chronic HFpEF
Dilated, hypokinetic RV on echo 07/16/2025
Persistent atrial fibrillation
Chronic Eliquis OAC
Hyponatremia
Hypokalemia
HTN
HLD
Chronic alcohol use disorder
Chronic tobacco use disorder
Pulmonary nodules
Echo 08/18/2024: EF 55 to 60%, mild concentric LVH, moderately dilated RA, mild to moderate TR, PAP 25 to 30 mmHg
Echo 07/16/2025: EF 50-55% visually, 46% by Welch's, severely hypokinetic and dilated right ventricle, D shaped septum in diastole consistent with RV pressure overload, severe TR
Echo 07/20/2025: Study pending
Plan:
-Presented with SOB at rest and weight gain despite uptitration of OP diuretics. ProBNP 5570.
-Diuresing with IV lasix 80mg daily. Will give an additional dose this afternoon. Creat stable at 0.5.
-Weight down to 179 lbs on 07/19, down 12 lbs this admission.
-Hyponatremia noted this admission. Na up to 126 in AM 07/19. Nephrology following.
-Echo 07/16/2025 with severely hypokinetic and dilated RV, new since 08/2024. Compliant w/ Eliquis, however may consider checking CT of chest/VQ scan.
-Will repeat limited echo tomorrow, 07/20 to reassess LV, RV function. May consider L&RHC later this admission pending results. Possibly Saturday 07/21.
-Continue medical therapy with atenolol, lisinopril. Will start Farxiga 10mg daily and spironolactone 12.5mg daily. CM to assess cost of SGLT2i.
-Stop amlodipine.
-Check 24 hour urine 5-HIAA, chromogranin A.
-Remains in persistent, rate controlled afib. Continue Eliquis 5mg BID. If plan is for [facility] Saturday, hold in PM tomorrow 07/20.
-Continue lipitor.
-Still requiring O2, wean as able.
HPI: Patient is a very pleasant 59-year-old female with past medical history significant for hyponatremia, hypokalemia, hypomagnesemia, persistent atrial fibrillation, hypertension, hyperlipidemia, chronic alcohol use, chronic tobacco use presents
due to worsening shortness of breath at rest and with activity as well as weight gain. Patient was admitted August 2024 due to acute confusion and symptomatic hyponatremia and underwent treatment at that time. Additionally, she had new diagnosis
of atrial fibrillation for which she was started on anticoagulation. Patient was recently seen in office 07/09/2025. At that time, patient had reported worsening shortness of breath and weight gain for which her primary care physician had started
Lasix 40 mg p.o. daily. Patient took that for 1 week with reported improvement at office visit however patient states today that she did not experience much of an improvement. In office, it was recommended that she increase her Lasix dosing to 40
mg twice daily for 3 days followed by 40 mg daily. Additionally was recommended that she reduce fluid and sodium intake. With this change in frequency, she reported no significant change. Overall, she was reported an increase in weight of roughly
30 pounds over the last month. She denies any chest pain or tightness. She reports shortness of breath at rest and with exertion. She notes lower extremity swelling which has worsened. Additionally, her reports increased fatigue by
patient. She denies any lightheadedness, dizziness, near-syncope, syncope, PND, orthopnea, or weakness. Patient is a daily smoker (10 cigarettes/day, for a 'long time'), daily alcohol 1-2 drinks, no illicits. Patient is a positive family history
of heart disease.
Progress Note - Family Living Educator
Subjective
Date of Service: July 19, 2025
Breathing improving.
Objective
Labs:
07/18/25 04:16
07/19/25 05:24
Labs
Hgb 12.1 g/dL (12.0-16.0) 07/18/25 04:16
Hct 34.0 % (37.0-47.0) L 07/18/25 04:16
Plt Count 223 10^3/uL (130-400) D 07/18/25 04:16
PT 21.9 Sec (11.4-14.6) H 07/16/25 20:24
INR 1.89 07/16/25 20:24
APTT 39.4 Sec (23.4-35.0) H 07/16/25 20:24
Sodium 126 mmol/L (135-145) L 07/19/25 05:24
Potassium 3.8 mmol/L (3.5-5.1) 07/19/25 05:24
BUN 9 mg/dl (7-17) 07/19/25 05:24
Creatinine 0.5 mg/dL (0.6-1.0) L 07/19/25 05:24
Glucose 91 mg/dl (70-99) 07/19/25 05:24
Troponins
07/16/25
15:34
Troponin I 0.017
Vital Signs and I&O:
Vital Signs
Temp Pulse Resp BP Pulse Ox
98.2 F 66 17 110/69 97
07/19/25 10:59 07/19/25 10:59 07/19/25 10:59 07/19/25 10:59 07/19/25 10:59
Vital Signs
Temp Pulse Resp BP Pulse Ox
98.2 F 66 17 110/69 97
07/19/25 10:59 07/19/25 10:59 07/19/25 10:59 07/19/25 10:59 07/19/25 10:59
Intake & Output
07/17/25 07/18/25 07/19/25 07/20/25
06:59 06:59 06:59 06:59
Intake Total 790 / 790 960 / 960 540 / 540
Output Total 3275 / 3275 3650 / 3650 1700 / 1700
Balance -2485 / -2485 -2690 / -2690 -1160 / -1160
Physical Exam
Physical Exam
GEN: No distress, awake, alert, oriented x3
HEENT: supple, anicteric, mmm
LUNGS: few crackles
CV: irreg, S1/S2, no murmur
EXT: No clubbing or cyanosis
NEURO: Gross non-focal
SKIN: Warm, dry, no rash
--- NOTE | 2025-07-19 12:40 | W.PN.NEPH.PH ---
Today's Communication / Plan
-
follow BMP
Assessment/Plan
-
Impression:
Hyponatremia (112)
History of hypertension
History of paroxysmal atrial fibrillation
Volume overload
Dyslipidemia
Hypertension
Plan:
hold lasix
follow BMP
wean O2 supplemental
FR still
-
-
Date of Service: July 19, 2025
CC / HPI / ROS
-
Chief Complaint:
Hyponatremia
History of Present Illness:
Serum sodium up from 112-119 to 126 following 3% infusion and IV Lasix
Hemodynamically stable
Potassium 3.8
Review of Systems:
Grossly nonoliguric
Remains on oxygen but feeling better
Weights down
Labs
-
Labs:
WBC 9.1 10^3/uL (4.8-10.8) 07/18/25 04:16
RBC 3.71 10^6/uL (4.20-5.40) L 07/18/25 04:16
Hgb 12.1 g/dL (12.0-16.0) 07/18/25 04:16
Hct 34.0 % (37.0-47.0) L 07/18/25 04:16
Plt Count 223 10^3/uL (130-400) D 07/18/25 04:16
Sodium 126 mmol/L (135-145) L 07/19/25 05:24
Potassium 3.8 mmol/L (3.5-5.1) 07/19/25 05:24
Chloride 92 mmol/L (98-107) L 07/19/25 05:24
Carbon Dioxide 30 mmol/L (22-30) 07/19/25 05:24
BUN 9 mg/dl (7-17) 07/19/25 05:24
Creatinine 0.5 mg/dL (0.6-1.0) L 07/19/25 05:24
eGFR > 60.00 07/19/25 05:24
Glucose 91 mg/dl (70-99) 07/19/25 05:24
Calcium 9.3 mg/dl (8.4-10.2) 07/19/25 05:24
Phosphorus 2.9 mg/dl (2.5-4.5) 07/18/25 05:43
Ffz-M-Fgtyobuetss Pept 4590 pg/ml 07/18/25 04:16
Albumin 3.8 g/dl (3.5-5.0) 07/18/25 05:43
Physical Exam
-
Vital Signs:
Vital Signs
Temp Pulse Resp BP Pulse Ox
98.2 F 66 17 110/69 97
07/19/25 10:59 07/19/25 10:59 07/19/25 10:59 07/19/25 10:59 07/19/25 10:59
Cardiovascular:: Regular rate and rhythm
Respiratory:: Bilateral: Coarse
Lung Excursion:: Normal
Abdomen:: Nontender and Soft
Bowel Sounds:: Normal
Extremity Edema:: None: Bilateral:
[2025-07-19 15:14] VITALS: BP 117/73
[2025-07-19] MEDS: FOLVITE 1 MG PO (15:23)
[2025-07-19] MEDS: VITAMIN B1 100 MG PO (15:23)
[2025-07-19] MEDS: LIPITOR 10 MG PO (17:00)
[2025-07-19 19:00] VITALS: BP 126/79
[2025-07-19] MEDS: TYLENOL 1000 MG PO (20:28)
[2025-07-19 21:05] LABS: B.E. 8.5 mmol/L; HCO3 32.8 mmol/L (21-28); O2 Saturation % 96.4 % (94-98); PCO2 43 mmHg (32-35); PO2 71 mmHg (83-108)
[2025-07-19 23:00] VITALS: BP 122/70
[2025-07-20 03:00] VITALS: BP 113/71
[2025-07-20 05:28] VITALS: BMI 27.7
[2025-07-20 06:02] LABS: Hematocrit 37.3 % (37.0-47.0); Hemoglobin 12.9 g/dL (12.0-16.0); Mean Corp Hgb Conc. 34.6 g/dL (33.0-37.0); Mean Corpuscular Volume 91.4 fL (81.0-99.0); Platelet Count 170 10^3/uL (130-400); Red Cell Dist. Width 13.2 % (11.5-14.5)
[2025-07-20 06:05] LABS: Blood Urea Nitrogen 9 mg/dl (7-17); Calcium 9.0 mg/dl (8.4-10.2); Carbon Dioxide 30 mmol/L (22-30); Chloride 91 mmol/L (98-107); Estimated Creatinine Clearance 106 ml/min; Glucose 85 mg/dl (70-99); Magnesium 1.6 mg/dl (1.6-2.3); Potassium 3.3 mmol/L (3.5-5.1); Sodium 130 mmol/L (135-145); eGFR > 60.00
--- NOTE | 2025-07-20 08:28 | W.PN.HOSP.TC ---
Today's Communication/Plan
-
Cardiac cath
Assessment / Plan
Assessment / Plan
Physical exam:
General: Acutely ill
HEENT: Normocephalic, Atraumatic and Moist Mucous Membranes
Respiratory: Coarse crackles bilaterally; Negative Wheezes or Rhonchi
Cardiac: Regular Rhythm and S1/S2
GI: Soft, Nontender and Nondistended
Musculoskeletal: No Clubbing, No Cyanosis. There is bilateral lower extremity edema
Neuro: Awake, Alert and Oriented, no gross neurological deficit. No tremors, nystagmus, or tongue fasciculation
Psych: Calm and normal judgment and insight
A/P:
Acute hypoxic respiratory failure:
Wean oxygen as able
Diuresis
CTA (No VTE while on Eliquis), ordered ABG and PFTs
Cardiology and pulmonary following
Discussed with at bedside at length yesterday
Acute on chronic HFpEF:
Diuresis as needed
Discontinued amlodipine
GDMT started spironolactone and Farxiga and continue lisinopril 40 mg p.o. daily
Reviewed echo results
Plan for left and right heart cath in a.m.
Cardiology checked chromogranin A and 24-hour urine 5-HIAA
Severe hyponatremia:
Improving
Received 3% saline
Patient received IV Lasix as well
Today sodium up to 130 (sodium has been as low as 112). Avoid rapid correction.
Hypokalemia:
Replete and trend
Replace Mg
Persistent atrial fibrillation:
On rate control with atenolol 50 mg twice a day
On anticoagulation, Eliquis 5 mg twice a day (on hold due to plan for cath)
Might need cardioversion and or ablation down the road
Hypertension:
Continue home antihypertensive
Hyperlipidemia:
Continue home statin
Alcohol use disorder:
Start thiamine and folic acid for 3 to 5 days
Watch for signs of alcohol withdrawal
DVT prophylaxis:
Eliquis (on hold due to plan for cath)
CODE STATUS:
Full code
Total time spent on today's encounter was 52 minutes which included time spent in counseling the patient/family regarding diagnosis and treatment plan as listed above, goals of care, and symptom management. Case was discussed with nursing staff,
specialists, and care coordinators/case management. All labs and imaging personally reviewed by me. Remainder the time spent in detailed review of previous records, lab data, imaging, and other medical provider documentation.
Anticipated Discharge: > 48 hours
Subjective/Interval History
-
Date of Service: July 20, 2025
Overall better but still sob, no cp, no seizure like activity, no fever
Objective Data
-
Labs:
Laboratory Results
07/19/25 07/20/25
20:58 05:17
WBC 7.2
Hgb 12.9
Hct 37.3
Plt Count 170 D
HCO3 32.8 H
Sodium 130 L
Potassium 3.3 L
Chloride 91 L
Carbon Dioxide 30
BUN 9
Creatinine 0.6
Glucose 85
Calcium 9.0
Vital Signs:
Vital Signs
Temp Pulse Resp BP Pulse Ox
98.0 F 60 16 113/71 98
07/20/25 03:00 07/20/25 03:00 07/20/25 03:00 07/20/25 03:00 07/20/25 03:00
I&O
07/19/25 07/20/25 07/21/25
06:59 06:59 06:59
Intake Total 540 / 540 960 / 960
Output Total 1700 / 1700
Balance -1160 / -1160 960 / 960
[2025-07-20 08:31] VITALS: BP 134/82
[2025-07-20] MEDS: ELIQUIS 5 MG PO (08:33)
[2025-07-20] MEDS: FOLVITE 1 MG PO (08:33)
[2025-07-20] MEDS: TENORMIN 50 MG PO ×2 (08:33→20:36)
[2025-07-20] MEDS: VITAMIN B1 100 MG PO (08:33)
[2025-07-20] MEDS: FARXIGA 10 MG PO (08:33)
[2025-07-20] MEDS: ALDACTONE 12.5 MG PO (08:33)
[2025-07-20] MEDS: ZESTRIL 40 MG PO (08:33)
--- NOTE | 2025-07-20 09:20 | W.PN.PUL3 ---
Addendum entered and electronically signed by Gail Yeboah, DO 07/20/25 15:22:
PFT obtained and reviewed-moderate obstruction, some air trapping, mild effusion impairment
All very minor findings that would not explain degree of severe pulmonary hypertension
Would agree with proceeding with RHC tomorrow
Original Note:
Today's Communication / Plan
-
She is now on room air
CT reviewed and largely negative
PFT today at 3pm
If negative, would proceed with RHC tomorrow 07/21
Assessment
-
59-year-old female with a past medical history of chronic HFpEF, hypertension, mixed hyperlipidemia, A-fib and Eliquis, history of hyponatremia and cognitive impairment who presents with weight gain + SOB. 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
07/09/2025 and was started on 40 mg Lasix due to volume overload. Advised to limit her sodium and fluid intake. She is also had 3 weeks of lower extremity edema + abdominal distention. Her HCTZ had been discontinued in August due to hyponatremia.
She was saturating 90% on room air, pulse rate 70, respiratory rate 16 and BP 106/69. Serum sodium found to be 112 and previously she was 129 in August 2024. Chloride level also low at 76, with serum osmolarity 235. Nephrology consulted and
patient recommended to start 3% hypertonic saline. She was admitted to the ICU for further management and lathe winder service consulted for additional recommendations.
Acute on chronic hyponatremia with hypervolemic, hypotonic hyponatremia (baseline sodium ~129)
Acute on chronic HFpEF with mild acute interstitial edema seen on CXR
Acute respiratory failure with hypoxia due to acute cardiogenic pulmonary edema
Hypomagnesemia
New RV dysfunction and severe PH on ECHO
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
Right eye cataract
History of hyponatremia
History of cognitive impairment
Chronic HFpEF
Chronic transaminitis
A-fib on Eliquis
Hypertension
Hyperlipidemia
Plan:
Asked for re-eval given new ECHO findings of severe PH and RV dysfunction
She denies any prior known history of lung disease
Prior CT imaging reviewed and negative
Given her new findings, it is reasonable for us to repeat full pulmonary evaluation
We will start with CTA and PFTs
If findings are negative, agreed to proceed with RHC that is tentative slated for Saturday
I reviewed this in detail with cardiology
CHF component
Continue with diuresis, currently on 80 mg Lasix once daily
Replete electrolytes while being diuresed, with goal K>4, Mg>2
proBNP elevated at 5570
trend UOP and strict I/O
History of hyponatremia, in the past and treated at the time of her admission
s/p 3% saline per nephrology with improvement in serum sodium
Defer any additional 3% to nephrology
Serial BMP to monitor trend of serum sodium while taking caution not to rapidly correct; goal <8-10 mmol/L in 24 hours, and <16-18 mmol/L in 48 hours
TSH WNL at 1.31
Fluid restriction per nephrology
Maintain SpO2 >90-94%, weaning down supplemental O2 flow rate as tolerated
Recommend ambulatory pulse oximetry prior to discharge, unless she is on room air, saturating 96% or above and rest
- Maintain MAP>65
- Trend LFTs
- Maintain euglycemia with goal BG 140-180
- Trend H/H and transfuse if needed to keep Hb>7g/dL; keep plt>20k, unless there is concern for bleeding then keep plt>50k
- prn nebulized bronchodilators - not currently bronchospastic
- Incentive spirometer encouraged 10x per hour for at least 4 hrs a day
- PT/OT
- Fluid and sodium restricted diet
- DVT ppx: Eliquis
We will follow
Data:
CXR 07/16/2025:
1. Moderate to severe cardiomegaly with interval increase in size of the heart since August 2024. Diagnostic possibilities are (1) a CARDIOMYOPATHY or (2) less likely pericardial effusion.
2. Elevated pulmonary venous pressures.
3. Mild asymmetric perihilar opacity in the left upper lobe. Diagnostic possibilities are (1) left upper lobe pneumonia or (2) mild asymmetric alveolar pulmonary edema.
ECHO 07/16/25: 1. Ejection fraction is 50-55% by visual assessment.
2. Normal left ventricular size, wall thickness and systolic function. No regional wall motion abnormalities are seen.
3. Compared to a prior transthoracic echocardiogram study from August 2024 which was reviewed, There is no significant change. Right ventricle was reported as normal in size and function in August 2024 but appears severely dilated and hypokinetic
as on current study.
4. D-shaped septum in diastole consistent with right ventricular pressure overload.
5. Indexed left atrial volume is severely abnormal (>48 ml/m2).
6. Right ventricular cavity size is severely dilated.
7. Right ventricular systolic function is severely decreased.
8. Severe tricuspid regurgitation.
9. Severely dilated right atrium.
ECHO 08/18/24: Normal left ventricular size and systolic function. No regional wall motion abnormalities are seen. LV ejection fraction is 55-60% by Welch's method of discs. Mild concentric left ventricular hypertrophy.
Normal right ventricular size. Normal right ventricular systolic function. Indexed LA volume is moderately abnormal (42-48 mL/m2). Moderately dilated right atrium. Mild-moderate tricuspid regurgitation. Estimated pulmonary artery pressure of 25-30
mmHg. Assuming a right atrial pressure of 3 mmHg. No prior study available for comparison.
CT Chest 07/19/25: Patchy groundglass opacities in both upper lobes concerning for developing pneumonia versus interstitial lung disease. No pulmonary embolus.
Mild bilateral hilar lymphadenopathy likely reactive. Cardiomegaly. Severe atherosclerotic vascular disease.
-----
Total time spent today was 51 minutes for this encounter. Time includes reviewing laboratory test/imaging results, reviewing pertinent medical records, obtaining and reviewing medical history, performing an appropriate exam, ordering medications,
tests and procedures. Time also includes documentation of this encounter, coordinating patient care and communicating with other healthcare professionals. Total time does not include separately billed tests performed on this date of service.
Subjective Data
-
Date of Service:
Date of Service: July 20, 2025
Chief Complaint: Pulmonary Follow Up
Subjective:
No new complaints, now off oxygen
Remains short of breath at rest
Objective Data
Data Reviewed
Vital Signs / I&O / Oxygen:
Vital Signs
Temp Pulse Resp BP Pulse Ox
97.9 F 76 16 134/82 97
07/20/25 08:31 07/20/25 08:31 07/20/25 08:31 07/20/25 08:31 07/20/25 08:31
Intake and Output
07/19/25 07/20/25 07/21/25
06:59 06:59 06:59
Intake Total 540 / 540 960 / 960
Output Total 1700 / 1700
Balance -1160 / -1160 960 / 960
SaO2 97
Nasal Cannula flow liters per 2
minute
Physical Exam
General: Comfortable and Other (NAD)
HEENT: Normocephalic, Anicteric and Moist Mucous Membranes
Cardiovascular: S1-S2 and Regular Rhythm
Respiratory: Clear and Non-Labored Respirations
GI: Soft, Non Distended and Non Tender
Neurology: Awake, Alert, Oriented and No Motor Deficits
Skin: Warm, Dry and Good Color
Labs/Micro/Reports
Lab Data
07/20/25 05:17
07/20/25 05:17
Laboratory Results
07/19/25
20:58
pH 7.49 H
pCO2 43 H
pO2 71 L
HCO3 32.8 H
O2 Delivery Level
[2025-07-20] MEDS: KCL 40 MEQ PO ×2 (09:52→17:27)
[2025-07-20 11:00] VITALS: BP 114/76
--- NOTE | 2025-07-20 12:45 | W.PN.NEPH.PH ---
Today's Communication / Plan
-
follow BMP
Assessment/Plan
-
Impression:
Hyponatremia (112)
History of hypertension
History of paroxysmal atrial fibrillation
Volume overload
Dyslipidemia
Hypertension
Plan:
lasix per cardiology
follow BMP
wean O2 supplemental
FR still
-
-
Date of Service: July 20, 2025
CC / HPI / ROS
-
Chief Complaint:
Hyponatremia
History of Present Illness:
Serum sodium up to 130
Hemodynamically stable
Potassium 3.3
Review of Systems:
Grossly nonoliguric
no SOB
Weights down
Labs
-
Labs:
WBC 7.2 10^3/uL (4.8-10.8) 07/20/25 05:17
RBC 4.08 10^6/uL (4.20-5.40) L 07/20/25 05:17
Hgb 12.9 g/dL (12.0-16.0) 07/20/25 05:17
Hct 37.3 % (37.0-47.0) 07/20/25 05:17
Plt Count 170 10^3/uL (130-400) D 07/20/25 05:17
Sodium 130 mmol/L (135-145) L 07/20/25 05:17
Potassium 3.3 mmol/L (3.5-5.1) L 07/20/25 05:17
Chloride 91 mmol/L (98-107) L 07/20/25 05:17
Carbon Dioxide 30 mmol/L (22-30) 07/20/25 05:17
BUN 9 mg/dl (7-17) 07/20/25 05:17
Creatinine 0.6 mg/dL (0.6-1.0) 07/20/25 05:17
eGFR > 60.00 07/20/25 05:17
Glucose 85 mg/dl (70-99) 07/20/25 05:17
Calcium 9.0 mg/dl (8.4-10.2) 07/20/25 05:17
Phosphorus 2.9 mg/dl (2.5-4.5) 07/18/25 05:43
Lkx-X-Cxtekuobydc Pept 4590 pg/ml 07/18/25 04:16
Albumin 3.8 g/dl (3.5-5.0) 07/18/25 05:43
Physical Exam
-
Vital Signs:
Vital Signs
Temp Pulse Resp BP Pulse Ox
97.2 F 73 18 114/76 97
07/20/25 11:00 07/20/25 11:00 07/20/25 11:00 07/20/25 11:00 07/20/25 11:00
Cardiovascular:: Regular rate and rhythm
Respiratory:: Bilateral: Coarse
Lung Excursion:: Normal
Abdomen:: Nontender and Soft
Bowel Sounds:: Normal
Extremity Edema:: None: Bilateral:
--- NOTE | 2025-07-20 15:21 | W.PN.CARDCBS ---
Addendum entered and electronically signed by Robert Ramírez MD 07/20/25 15:47:
I saw and examined the patient.
The Handbag Operator's note was reviewed and I agree with the note.
Comment:
GEN: No distress, awake, Ox3
HEENT: supple, anicteric, mmm
LUNGS: CTA, no wheezes/rales
CV: Irreg, S1/S2, 1/6 syst LSB, no gallop
ABD: soft, BS+, NT/ND
EXT: + edema
NEURO: Gross non-focal
SKIN: No rash
PLan:
She is well-known to me presents with acute on chronic heart failure with preserved ejection fraction. Repeat echo today has a preserved ejection fraction with RV volume overload and pulmonary hypertension.
We discussed treatment options and agreed for now to hold her Eliquis and proceed with a left and right heart catheterization in the a.m. She has a markedly abnormal ECG and coronary calcium with acute heart failure.
We discussed if she has no significant CAD we will continue optimization of her volume status and then discuss rhythm control. We may need to initiate antiarrhythmic therapy and proceed with [place] cardioversion later this week.
Continue lisinopril, and spironolactone. Continue atenolol, Farxiga.
Hyponatremia is improving and is now at 130. Creatinine is normal.
We again discussed the importance of alcohol and tobacco cessation.
Workup for carcinoid ongoing.
Original Note:
Today's Communication / Plan
-
RHC/LHC tomorrow, Eliquis now on hold
Impression / Plan
-
Assistant Auditor: Dr. Ramírez
Impression:
Acute on chronic HFpEF
Dilated, hypokinetic RV on echo 07/16/2025
Persistent atrial fibrillation
Chronic Eliquis OAC
Hyponatremia
Hypokalemia
HTN
HLD
Chronic alcohol use disorder
Chronic tobacco use disorder
Pulmonary nodules
Echo 08/18/2024: EF 55 to 60%, mild concentric LVH, moderately dilated RA, mild to moderate TR, PAP 25 to 30 mmHg
Echo 07/16/2025: EF 50-55% visually, 46% by Welch's, severely hypokinetic and dilated right ventricle, D shaped septum in diastole consistent with RV pressure overload, severe TR
Echo 07/20/2025: EF 50 to 55%, D-shaped septum in diastole consistent with RV volume overload, RV moderately dilated with mild to moderate decrease in RV systolic function, aortic sclerosis without stenosis, severe TR with PAP 35 mmHg
Plan:
-Presented with SOB at rest and weight gain despite uptitration of OP diuretics. ProBNP 5570.
-Patient weighed 191 lbs on standing scale 07/16/2025 and weight is down to 171 lbs on standing scale 07/20/2025. VS reviewed by me 07/20/2025
-Patient has been diuresed with varying doses of Lasix, but mostly 80 mg IV daily. Patient was taking Lasix 40 mg PO daily prior to admission.
-Cre stable at 0.6 on labs reviewed by me 07/20/2025.
-EF preserved to 50 to 55% by echo 07/20/2025, but there is evidence of RV dysfunction which was also noted on echo from 07/16/2025
-Outpatient dose of atenolol 50 mg BID has been continued
-Outpatient dose of lisinopril 40 mg daily has been continued
-Patient was started on spironolactone 12.5 mg daily this admission
-Patient was started on Farxiga 10 mg daily this admission
-Outpatient dose of amlodipine 10 mg daily has been stopped
-Patient has persistent A-fib and HR is controlled with atenolol as noted above
-Outpatient dose of Eliquis 5 mg BID (age 59, Cre 0.6) has been continued throughout admission, but will hold dose in anticipation of [facility]. Last dose of Eliquis was 07/20/2025 AM. Orders placed by me
-Aspirin 324 mg PO x 1 ordered for 07/20/2025 PM and then 81 mg daily starting 07/21/2025. Pending results of cardiac catheterization aspirin can be stopped once Eliquis is restarted.
-Patient is undergoing evaluation for carcinoid with 24 hour urine 5-HIAA, chromogranin A.
-Nephrology following for hyponatremia and sodium improved to 130 on my review of labs 07/20/2025
-Outpatient dose of atorvastatin 10 mg daily has been continued
-RHC/LHC planned for 07/21/2025, previously noted to have coronary atherosclerosis on CT imaging and patient has risk factors for CAD including HTN, hyperlipidemia and smoking
HPI: Patient is a very pleasant 59-year-old female with past medical history significant for hyponatremia, hypokalemia, hypomagnesemia, persistent atrial fibrillation, hypertension, hyperlipidemia, chronic alcohol use, chronic tobacco use presents
due to worsening shortness of breath at rest and with activity as well as weight gain. Patient was admitted August 2024 due to acute confusion and symptomatic hyponatremia and underwent treatment at that time. Additionally, she had new diagnosis
of atrial fibrillation for which she was started on anticoagulation. Patient was recently seen in office 07/09/2025. At that time, patient had reported worsening shortness of breath and weight gain for which her primary care physician had started
Lasix 40 mg p.o. daily. Patient took that for 1 week with reported improvement at office visit however patient states today that she did not experience much of an improvement. In office, it was recommended that she increase her Lasix dosing to 40
mg twice daily for 3 days followed by 40 mg daily. Additionally was recommended that she reduce fluid and sodium intake. With this change in frequency, she reported no significant change. Overall, she was reported an increase in weight of roughly
30 pounds over the last month. She denies any chest pain or tightness. She reports shortness of breath at rest and with exertion. She notes lower extremity swelling which has worsened. Additionally, her reports increased fatigue by
patient. She denies any lightheadedness, dizziness, near-syncope, syncope, PND, orthopnea, or weakness. Patient is a daily smoker (10 cigarettes/day, for a 'long time'), daily alcohol 1-2 drinks, no illicits. Patient is a positive family history
of heart disease.
Progress Note - Assistant Auditor
Subjective
Date of Service: July 20, 2025
Patient denies chest pain
Objective
Labs:
07/20/25 05:17
07/20/25 05:17
Labs
Hgb 12.9 g/dL (12.0-16.0) 07/20/25 05:17
Hct 37.3 % (37.0-47.0) 07/20/25 05:17
Plt Count 170 10^3/uL (130-400) D 07/20/25 05:17
PT 21.9 Sec (11.4-14.6) H 07/16/25 20:24
INR 1.89 07/16/25 20:24
APTT 39.4 Sec (23.4-35.0) H 07/16/25 20:24
Sodium 130 mmol/L (135-145) L 07/20/25 05:17
Potassium 3.3 mmol/L (3.5-5.1) L 07/20/25 05:17
BUN 9 mg/dl (7-17) 07/20/25 05:17
Creatinine 0.6 mg/dL (0.6-1.0) 07/20/25 05:17
Glucose 85 mg/dl (70-99) 07/20/25 05:17
Vital Signs and I&O:
Vital Signs
Temp Pulse Resp BP Pulse Ox
97.2 F 73 18 114/76 97
07/20/25 11:00 07/20/25 11:00 07/20/25 11:00 07/20/25 11:00 07/20/25 11:00
Vital Signs
Temp Pulse Resp BP Pulse Ox
97.2 F 73 18 114/76 97
07/20/25 11:00 07/20/25 11:00 07/20/25 11:00 07/20/25 11:00 07/20/25 11:00
Intake & Output
07/18/25 07/19/25 07/20/25 07/21/25
06:59 06:59 06:59 06:59
Intake Total 960 / 960 540 / 540 960 / 960
Output Total 3650 / 3650 1700 / 1700
Balance -2690 / -2690 -1160 / -1160 960 / 960
Physical Exam
Physical Exam
GEN: NAD, AAO x 3
LUNGS: RA. No audible wheeze
CV: A-fib on telemetry. Irreg, S1/S2, no murmur
EXT: No edema B/L LE
NEURO: Gross non-focal
SKIN: Warm, dry, no rash
[2025-07-20] MEDS: VENTOLIN NEBULES 2.5 MG INH (15:33)
[2025-07-20] MEDS: LIPITOR 10 MG PO (17:27)
--- NOTE | 2025-07-20 17:48 | CM ---
CM following patient for discharge planning needs. Initial assessment indicates discharge plan to home with no needs.
CM will follow to identify and coordinate all discharge planning needs.
[2025-07-20] MEDS: ADVAIR HFA 115/21 MCG INHALER 2 PUFF INH (19:37)
[2025-07-20 19:42] VITALS: BP 126/74
[2025-07-20] MEDS: LOW STRENGTH ASPIRIN 324 MG PO (20:39)
[2025-07-20] MEDS: MAGNESIUM OXIDE 400 MG PO (20:39)
[2025-07-20 23:21] VITALS: BP 117/76
[2025-07-21] VITALS (12 sets, daily range): BP systolic 124–147; BP diastolic 71–94; BMI 28.1
[2025-07-21 05:54] LABS: Hematocrit 37.2 % (37.0-47.0); Hemoglobin 12.8 g/dL (12.0-16.0); Mean Corp Hgb Conc. 34.4 g/dL (33.0-37.0); Mean Corpuscular Volume 92.8 fL (81.0-99.0); Platelet Count 175 10^3/uL (130-400); Red Cell Dist. Width 13.2 % (11.5-14.5)
[2025-07-21 05:59] LABS: INR 1.46; PT 17.8 Sec (11.4-14.6)
[2025-07-21 06:15] LABS: ALT (SGPT) 32 U/L (0-35); AST (SGOT) 29 U/L (14-36); Albumin 3.6 g/dl (3.5-5.0); Alkaline Phosphatase 83 U/L (38-126); Blood Urea Nitrogen 9 mg/dl (7-17); Calcium 9.2 mg/dl (8.4-10.2); Carbon Dioxide 26 mmol/L (22-30); Chloride 96 mmol/L (98-107); Estimated Creatinine Clearance 107 ml/min; Glucose 95 mg/dl (70-99); Magnesium 1.7 mg/dl (1.6-2.3); Potassium 4.0 mmol/L (3.5-5.1); Sodium 129 mmol/L (135-145); Total Protein 5.9 g/dl (6.3-8.2); eGFR > 60.00
[2025-07-21] MEDS: ADVAIR HFA 115/21 MCG INHALER 2 PUFF INH ×2 (07:36→19:26)
[2025-07-21] MEDS: SPIRIVA RESPIMAT 2.5 MCG 2 PUFF INH (07:36)
[2025-07-21] MEDS: ALDACTONE 12.5 MG PO (07:43)
[2025-07-21] MEDS: LOW STRENGTH ASPIRIN 81 MG PO (07:44)
[2025-07-21] MEDS: FARXIGA 10 MG PO (07:44)
[2025-07-21] MEDS: TENORMIN 50 MG PO ×2 (07:44→20:14)
[2025-07-21] MEDS: FOLVITE 1 MG PO (07:44)
[2025-07-21] MEDS: ZESTRIL 40 MG PO (07:44)
[2025-07-21] MEDS: MAGNESIUM OXIDE 400 MG PO ×2 (07:44→20:15)
[2025-07-21] MEDS: VITAMIN B1 100 MG PO (07:44)
--- NOTE | 2025-07-21 08:32 | W.PN.HOSP.TC ---
Today's Communication/Plan
-
Left and right heart cath today.
Assessment / Plan
Assessment / Plan
Physical exam:
General: Acutely ill
HEENT: Normocephalic, Atraumatic and Moist Mucous Membranes
Respiratory: Coarse crackles bilaterally; Negative Wheezes or Rhonchi
Cardiac: Regular Rhythm and S1/S2
GI: Soft, Nontender and Nondistended
Musculoskeletal: No Clubbing, No Cyanosis. There is bilateral lower extremity edema
Neuro: Awake, Alert and Oriented, no gross neurological deficit. No tremors, nystagmus, or tongue fasciculation
Psych: Calm and normal judgment and insight
A/P:
Acute hypoxic respiratory failure:
Wean oxygen as able
Diuresis as needed
CTA (No VTE while on Eliquis), ABG (with mild hypoxia and hypercapnia) and PFTs per pulmonary
Cardiology and pulmonary following
Discussed with at bedside again today
Discharge planning once cleared by cardiology
Acute on chronic HFpEF:
Diuresis as needed
Discontinued amlodipine
GDMT started spironolactone and Farxiga and continue lisinopril 40 mg p.o. daily
Reviewed echo results
Plan for left and right heart cath today
Cardiology checked chromogranin A and 24-hour urine 5-HIAA
Severe hyponatremia:
Improving
Received 3% saline
Patient received IV Lasix as well
Today sodium up to 129 (sodium has been as low as 112).
Continue oral fluid restriction
Appreciated nephrology consult and follow-up
Hypokalemia:
Repleted and trend
Replace Mg
Persistent atrial fibrillation:
On rate control with atenolol 50 mg twice a day
On anticoagulation, Eliquis 5 mg twice a day (on hold due to plan for cath)
Might need cardioversion and or ablation down the road
Hypertension:
Continue home antihypertensive
Hyperlipidemia:
Continue home statin
Alcohol use disorder:
Start thiamine and folic acid for 3 to 5 days
Watch for signs of alcohol withdrawal
DVT prophylaxis:
Eliquis (on hold due to plan for cath)
CODE STATUS:
Full code
Total time spent on today's encounter was 36 minutes which included time spent in counseling the patient/family regarding diagnosis and treatment plan as listed above, goals of care, and symptom management. Case was discussed with nursing staff,
specialists, and care coordinators/case management. All labs and imaging personally reviewed by me. Remainder the time spent in detailed review of previous records, lab data, imaging, and other medical provider documentation.
Anticipated Discharge: 24 - 48 hours
Subjective/Interval History
-
Date of Service: July 21, 2025
No worsening shortness of breath. No chest pain. Upset that she is not in a private room.
Objective Data
-
Labs:
Laboratory Results
07/21/25
05:23
WBC 7.4
Hgb 12.8
Hct 37.2
Plt Count 175
PT 17.8 H
INR 1.46
Sodium 129 L
Potassium 4.0
Chloride 96 L
Carbon Dioxide 26
BUN 9
Creatinine 0.6
Glucose 95
Calcium 9.2
Total Bilirubin 1.0
AST 29
ALT 32
Alkaline Phosphatase 83
Vital Signs:
Vital Signs
Temp Pulse Resp BP Pulse Ox
97.3 F 78 16 133/79 94
07/21/25 07:28 07/21/25 07:39 07/21/25 07:39 07/21/25 07:28 07/21/25 07:39
I&O
07/20/25 07/21/25 07/22/25
06:59 06:59 06:59
Intake Total 960 / 960 720 / 720
Balance 960 / 960 720 / 624
--- NOTE | 2025-07-21 09:13 | W.PN.PUL3 ---
Today's Communication / Plan
-
PFT with moderate COPD, started on inhalers
CTA largely negative for acute findings
Diuresis per cards
Initial review of RHC results with improving numbers, await final report
If further management can be done as OP, would assess for d/c per team
We will arrange OP FU
Assessment
-
59-year-old female with a past medical history of chronic HFpEF, hypertension, mixed hyperlipidemia, A-fib and Eliquis, history of hyponatremia and cognitive impairment who presents with weight gain + SOB. Of note, she saw her hook and eye attacher on
07/09/2025 and was started on 40 mg Lasix due to volume overload. Advised to limit her sodium and fluid intake. She is also had 3 weeks of lower extremity edema + abdominal distention. Her HCTZ had been discontinued in August due to hyponatremia.
She was saturating 90% on room air, pulse rate 70, respiratory rate 16 and BP 106/69. Serum sodium found to be 112 and previously she was 129 in August 2024. Chloride level also low at 76, with serum osmolarity 235. Nephrology consulted and
patient recommended to start 3% hypertonic saline. 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
Acute on chronic hyponatremia with hypervolemic, hypotonic hyponatremia (baseline sodium ~129)
Acute on chronic HFpEF with mild acute interstitial edema seen on CXR
Acute respiratory failure with hypoxia due to acute cardiogenic pulmonary edema
Hypomagnesemia
New RV dysfunction and severe PH on ECHO
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
Right eye cataract
History of hyponatremia
History of cognitive impairment
Chronic HFpEF
Chronic transaminitis
A-fib on Eliquis
Hypertension
Hyperlipidemia
Plan:
Asked for re-eval given new ECHO findings of severe PH and RV dysfunction
She denies any prior known history of lung disease
Prior CT imaging reviewed and negative
Given her new findings, it is reasonable for us to repeat full pulmonary evaluation
We will start with CTA and PFTs
CTA with minor GGOs, no PE
PFTs showing moderate COPD, started on inhalers
Agree to proceed with RHC that is slated for Saturday 07/21
I reviewed this in detail with cardiology
CHF component
Continue with diuresis, currently on 80 mg Lasix once daily
Replete electrolytes while being diuresed, with goal K>4, Mg>2
proBNP elevated at 5570
trend UOP and strict I/O
History of hyponatremia, in the past and treated at the time of her admission
Fluid restriction per nephrology
Maintain SpO2 >90-94%, weaning down supplemental O2 flow rate as tolerated
Recommend ambulatory pulse oximetry prior to discharge, unless she is on room air, saturating 96% or above and rest
- Maintain MAP>65
- Trend LFTs
- Maintain euglycemia with goal BG 140-180
- Trend H/H and transfuse if needed to keep Hb>7g/dL; keep plt>20k, unless there is concern for bleeding then keep plt>50k
- prn nebulized bronchodilators - not currently bronchospastic
- Incentive spirometer encouraged 10x per hour for at least 4 hrs a day
- PT/OT
- Fluid and sodium restricted diet
- DVT ppx: Eliquis
We will follow
Data:
CXR 07/16/2025:
1. Moderate to severe cardiomegaly with interval increase in size of the heart since August 2024. Diagnostic possibilities are (1) a CARDIOMYOPATHY or (2) less likely pericardial effusion.
2. Elevated pulmonary venous pressures.
3. Mild asymmetric perihilar opacity in the left upper lobe. Diagnostic possibilities are (1) left upper lobe pneumonia or (2) mild asymmetric alveolar pulmonary edema.
ECHO 07/16/25: 1. Ejection fraction is 50-55% by visual assessment.
2. Normal left ventricular size, wall thickness and systolic function. No regional wall motion abnormalities are seen.
3. Compared to a prior transthoracic echocardiogram study from August 2024 which was reviewed, There is no significant change. Right ventricle was reported as normal in size and function in August 2024 but appears severely dilated and hypokinetic
as on current study.
4. D-shaped septum in diastole consistent with right ventricular pressure overload.
5. Indexed left atrial volume is severely abnormal (>48 ml/m2).
6. Right ventricular cavity size is severely dilated.
7. Right ventricular systolic function is severely decreased.
8. Severe tricuspid regurgitation.
9. Severely dilated right atrium.
ECHO 08/18/24: Normal left ventricular size and systolic function. No regional wall motion abnormalities are seen. LV ejection fraction is 55-60% by Welch's method of discs. Mild concentric left ventricular hypertrophy.
Normal right ventricular size. Normal right ventricular systolic function. Indexed LA volume is moderately abnormal (42-48 mL/m2). Moderately dilated right atrium. Mild-moderate tricuspid regurgitation. Estimated pulmonary artery pressure of 25-30
mmHg. Assuming a right atrial pressure of 3 mmHg. No prior study available for comparison.
CT Chest 07/19/25: Patchy groundglass opacities in both upper lobes concerning for developing pneumonia versus interstitial lung disease. No pulmonary embolus.
Mild bilateral hilar lymphadenopathy likely reactive. Cardiomegaly. Severe atherosclerotic vascular disease.
-----
Total time spent today was 51 minutes for this encounter. Time includes reviewing laboratory test/imaging results, reviewing pertinent medical records, obtaining and reviewing medical history, performing an appropriate exam, ordering medications,
tests and procedures. Time also includes documentation of this encounter, coordinating patient care and communicating with other healthcare professionals. Total time does not include separately billed tests performed on this date of service.
Subjective Data
-
Date of Service:
Date of Service: July 21, 2025
Chief Complaint: Pulmonary Follow Up
Subjective:
RHC scheduled for today
Otherwise stable on RA
Objective Data
Data Reviewed
Vital Signs / I&O / Oxygen:
Vital Signs
Temp Pulse Resp BP Pulse Ox
97.3 F 78 16 133/79 94
07/21/25 07:28 07/21/25 07:39 07/21/25 07:39 07/21/25 07:28 07/21/25 07:39
Intake and Output
07/20/25 07/21/25 07/22/25
06:59 06:59 06:59
Intake Total 960 / 960 720 / 720
Balance 960 / 960 720 / 720
SaO2 94
Nasal Cannula flow liters per 2
minute
Physical Exam
General: Comfortable and Other (NAD)
HEENT: Normocephalic, Anicteric and Moist Mucous Membranes
Cardiovascular: S1-S2 and Regular Rhythm
Respiratory: Clear and Non-Labored Respirations
GI: Soft, Non Distended and Non Tender
Neurology: Awake, Alert, Oriented and No Motor Deficits
Skin: Warm, Dry and Good Color
Labs/Micro/Reports
Lab Data
07/21/25 05:23
07/21/25 05:23
Laboratory Results
07/21/25
05:23
PT 17.8 H
INR 1.46
--- NOTE | 2025-07-21 13:48 | W.PN.NEPH.PH ---
Today's Communication / Plan
-
Maintain fluid restriction
Follow electrolytes
Lasix per cardiology
Assessment/Plan
-
Impression:
Hyponatremia (112)
History of hypertension
History of paroxysmal atrial fibrillation
Volume overload
Dyslipidemia
Hypertension
Plan:
Sodium at 120
lasix per cardiology
follow BMP
wean O2 supplemental
FR still although I am not sure she is adhering to this
-
-
Date of Service: July 21, 2025
CC / HPI / ROS
-
Chief Complaint:
Hyponatremia
History of Present Illness:
Serum sodium down to 129
Hemodynamically stable
Review of Systems:
Grossly nonoliguric
no SOB
Weights up
Labs
-
Labs:
WBC 7.4 10^3/uL (4.8-10.8) 07/21/25 05:23
RBC 4.01 10^6/uL (4.20-5.40) L 07/21/25 05:23
Hgb 12.8 g/dL (12.0-16.0) 07/21/25 05:23
Hct 37.2 % (37.0-47.0) 07/21/25 05:23
Plt Count 175 10^3/uL (130-400) 07/21/25 05:23
Sodium 129 mmol/L (135-145) L 07/21/25 05:23
Potassium 4.0 mmol/L (3.5-5.1) 07/21/25 05:23
Chloride 96 mmol/L (98-107) L 07/21/25 05:23
Carbon Dioxide 26 mmol/L (22-30) 07/21/25 05:23
BUN 9 mg/dl (7-17) 07/21/25 05:23
Creatinine 0.6 mg/dL (0.6-1.0) 07/21/25 05:23
eGFR > 60.00 07/21/25 05:23
Glucose 95 mg/dl (70-99) 07/21/25 05:23
Calcium 9.2 mg/dl (8.4-10.2) 07/21/25 05:23
Phosphorus 2.9 mg/dl (2.5-4.5) 07/18/25 05:43
Phk-S-Oxuegdsodzp Pept 4590 pg/ml 07/18/25 04:16
Albumin 3.6 g/dl (3.5-5.0) 07/21/25 05:23
Physical Exam
-
Vital Signs:
Vital Signs
Temp Pulse Resp BP Pulse Ox
97.5 F 80 15 140/91 100
07/21/25 10:48 07/21/25 10:48 07/21/25 10:48 07/21/25 10:48 07/21/25 10:48
Cardiovascular:: Regular rate and rhythm
Respiratory:: Bilateral: Coarse
Lung Excursion:: Normal
Abdomen:: Nontender and Soft
Bowel Sounds:: Normal
Extremity Edema:: None: Bilateral:
[2025-07-21] MEDS: LASIX 80 MG IV (14:07)
--- NOTE | 2025-07-21 14:25 | ITS.CL.CATH ---
Addendum entered and electronically signed by Vangie Florentino MD 07/21/25 18:05:
Addendum:
PA saturation: 60.2% on room air
AO saturation: 89.1% on room air
RA saturation: 61.4% on room air
Vangie Florentino MD, [facility], [facility]
Original Note:
[facility] - Catheterization
Cardiac Catheterization
Procedure Report:
LEFT AND RIGHT HEART CATHETERIZATION
Date of Procedure: July 21, 2025
Referring: Mireya Farfan
PROCEDURES:
1. Left heart catheterization, coronary angiogram.
2. Moderate sedation.
3. Right heart catheterization
INDICATION: Low normal LV systolic function with significant coronary artery calcification on CT, severe tricuspid regurgitation, assess invasive hemodynamic
ACCESS: Right radial artery, 6Fr. sheath, under US guidance. Right brachial vein, 6 Croatian sheath, under ultrasound guidance
HEMODYNAMICS : (mmHg)
RA (m) : 19, v waves to 26mmHG
RV (s/d,m) : 41/11, 16
PA (s/d, m) : 41/23, 30
PCWP (m) : 23
PA saturation: 89.1% on room air
AO saturation: 60.2% on room air
RA saturation: 61.4% on room air
Cardiac Output : 4.41 L/min
Cardiac Index : 2.34 L/min/m-2
Systemic vascular resistance: 1576 dsc^(-5)
Pulmonary vascular resistance: 2.49 andrews unit
AO (s/d) : 137/85
LVEDP : 18
No significant gradient across the aortic valve to suggest aortic stenosis.
CORONARY FINDINGS
Dominance: Right
Left Main Trunk (LMT): Large caliber vessel that gives rise to the LAD and LCx branches and is free of angiographic disease.
Left Anterior Descending Artery (LAD): Large caliber vessel that gives off 1 major diagonal branch as it courses along the anterior inter-ventricular groove before wrapping around the cardiac apex. The LAD and its branches are free of angiographic
disease.
Left Circumflex Artery (LCx): Large caliber vessel that gives off 2 major obtuse marginal (OM) branches as it courses along the atrio-ventricular (AV) groove. The LCx and its branches are free of angiographic disease.
Right Coronary Artery (RCA): Large caliber dominant vessel that gives rise to the posterior descending artery (RPDA) and postero-lateral ventricular (RPLV) branches distally. The RCA and its branches are free of angiographic disease.
SEDATION: 37 minutes of procedural sedation was utilized. IV Midazolam and IV Fentanyl were administered. An independent medical legal investigator was present to assist with and help manage the patient's level of consciousness and physiologic status.
Closure Device: There were no immediate intra-procedural complications. The sheath was pulled in the greens laborer and a vascular-band applied to the right wrist for radial artery hemostasis using the patent hemostasis technique.
CONCLUSIONS
1. No obstructive coronary artery disease.
2. Elevated right and left-sided filling pressures with normal cardiac output.
RECOMMENDATIONS
1. Wean radial band per protocol. Monitor right hand perfusion and for bleeding from the radial site following removal of the vascular-band following trans-radial access.
2. Continue aggressive medical therapy and risk factor modification for secondary CAD prevention.
3. Hydrate with normal saline to mitigate the risk of contrast-induced acute kidney injury.
Vangie Florentino MD, FAC, [facility]
Copy to: Drs. Miki Ramírez and Dionne Bazan
[2025-07-21] MEDS: LIPITOR 10 MG PO (17:25)
--- NOTE | 2025-07-21 18:15 | PTCARENOTE ---
Received patient from Auto Leasing Manager at 1355. Vitals, vascular, and site checks documented as ordered. patient with no complaints, pains, or problems throughout. Band deflated as ordered and taken off with no s/s of oozing or hematoma. Plan of care
ongoing, will continue to monitor.
[2025-07-21] MEDS: ELIQUIS 5 MG PO (20:15)
[2025-07-22 03:00] VITALS: BP 107/64
[2025-07-22 06:00] VITALS: BMI 27.2
[2025-07-22 06:20] LABS: Blood Urea Nitrogen 11 mg/dl (7-17); Calcium 9.4 mg/dl (8.4-10.2); Carbon Dioxide 25 mmol/L (22-30); Chloride 96 mmol/L (98-107); Estimated Creatinine Clearance 95 ml/min; Glucose 92 mg/dl (70-99); Potassium 4.0 mmol/L (3.5-5.1); Sodium 128 mmol/L (135-145); eGFR > 60.00
[2025-07-22 07:27] VITALS: BP 128/73
[2025-07-22] MEDS: ADVAIR HFA 115/21 MCG INHALER 2 PUFF INH ×2 (07:31→19:26)
[2025-07-22] MEDS: SPIRIVA RESPIMAT 2.5 MCG 2 PUFF INH (07:32)
[2025-07-22] MEDS: MAGNESIUM OXIDE 400 MG PO ×2 (07:48→21:10)
[2025-07-22] MEDS: ZESTRIL 40 MG PO (07:49)
[2025-07-22] MEDS: ALDACTONE 12.5 MG PO (07:49)
[2025-07-22] MEDS: TENORMIN 50 MG PO ×2 (07:49→21:10)
[2025-07-22] MEDS: ELIQUIS 5 MG PO ×2 (07:49→21:10)
[2025-07-22] MEDS: VITAMIN B1 100 MG PO (07:49)
[2025-07-22] MEDS: FOLVITE 1 MG PO (07:49)
[2025-07-22] MEDS: FARXIGA 10 MG PO (07:50)
--- NOTE | 2025-07-22 09:29 | W.PN.CARDCBS ---
Addendum entered and electronically signed by Arnaud Cardona MD 07/22/25 14:59:
I saw and examined the patient.
The Fire Control Technician's note was reviewed and I agree with the note.
Comment: Briefly, 59-year-old woman past medical history of heart failure with preserved ejection fraction and persistent atrial fibrillation who presents with acute decompensated heart failure
Echocardiogram here with preserved LV function but decreased RV systolic function and severe tricuspid regurgitation
Underwent L/R heart catheterization 07/21/2025 which showed nonobstructive coronary disease with elevated left and right sided filling pressures
Given pulmonary capillary wedge pressure of 23 mmHg would continue IV diuretics today
Currently in rate controlled atrial fibrillation. Suspect that she would benefit from sinus rhythm.
Tentative plan for PARISH/direct-current cardioversion tomorrow
Start amiodarone load today in anticipation
Continue Eliquis 5 mg twice daily
We discussed that ultimately she would benefit from PVI
Plan reviewed with at bedside as well as hospitalist via [facility] connect
Original Note:
Today's Communication / Plan
-
PARISH/CV in a.m.
Continue Eliquis
Add amiodarone 400 mg TID
Restart Lasix 80 mg IV daily, PCWP was 23 on RHC yesterday
Impression / Plan
-
An Employee Sponsor Or Advocate And: Dr. Ramírez
Impression:
Acute on chronic HFpEF
Dilated, hypokinetic RV on echo 07/16/2025
Persistent atrial fibrillation
Chronic Eliquis OAC
Hyponatremia
Hypokalemia
HTN
HLD
Chronic alcohol use disorder
Chronic tobacco use disorder
Pulmonary nodules
Nonobstructive CAD by cardiac cath 07/21/2025
Echo 08/18/2024: EF 55 to 60%, mild concentric LVH, moderately dilated RA, mild to moderate TR, PAP 25 to 30 mmHg
Echo 07/16/2025: EF 50-55% visually, 46% by Welch's, severely hypokinetic and dilated right ventricle, D shaped septum in diastole consistent with RV pressure overload, severe TR
Echo 07/20/2025: EF 50 to 55%, D-shaped septum in diastole consistent with RV volume overload, RV moderately dilated with mild to moderate decrease in RV systolic function, aortic sclerosis without stenosis, severe TR with PAP 35 mmHg
Plan:
-Presented with SOB at rest and weight gain despite uptitration of OP diuretics. ProBNP 5570.
-Weight is down to 168 lbs on my review of VS 07/22/2025. Patient weighed 191 lbs on standing scale on admission 07/16/2025
-Patient has been diuresed with varying doses of Lasix, but mostly 80 mg IV daily until it was stopped by nephrology on 07/19/2025. PCWP was 23 mmHg by RHC 07/21/2025. Restart Lasix 80 mg IV daily 07/22/2025, orders placed by me. Patient was
taking Lasix 40 mg PO daily prior to admission.
-Cre stable at 0.6 on labs reviewed by me 07/21/2025.
-EF preserved to 50 to 55% by echo 07/20/2025, but there is evidence of RV dysfunction which was also noted on echo from 07/16/2025
-Patient had nonobstructive CAD on cardiac cath 07/21/2025, report reviewed by me
-Due to persistent HF and evidence of volume overload without evidence of CAD we will focus on rhythm control efforts. Reviewed with patient and the plan to start amiodarone 400 mg TID now, orders placed by me. We will then proceed with
PARISH/CV on 07/23/2025. Patient had interruption in her Eliquis for C on 07/21/2025 and missed doses of Eliquis on the night of 07/20/2020 5 in the morning of 07/21/2025. Patient reports she has otherwise been compliant with Eliquis over the last
year.
-Outpatient dose of atenolol 50 mg BID has been continued
-Outpatient dose of lisinopril 40 mg daily has been continued
-Patient was started on spironolactone 12.5 mg daily this admission and potassium is stable at 4.0 my review of labs 07/22/2025.
-Patient was started on Farxiga 10 mg daily this admission
-Outpatient dose of amlodipine 10 mg daily has been stopped
-Patient is undergoing evaluation for carcinoid with 24 hour urine 5-HIAA with results pending and chromogranin A level which was normal. Carcinoid workup being performed due to changes seen on echo including thickening of the tricuspid valve
leaflets.
-Nephrology following for hyponatremia and has recommended fluid restriction
-Outpatient dose of atorvastatin 10 mg daily has been continued
-Reviewed plans for rhythm control with the patient and her in the room on 07/22/2025. We discussed PARISH/CV and what that procedure entails. We discussed the addition of amiodarone. We discussed ongoing evaluation for ablation as an
outpatient. Patient and partner agreeable to PARISH/CV on 07/23/2025 and arrangements made with the Dental Hygiene Professor by me.
HPI: Patient is a very pleasant 59-year-old female with past medical history significant for hyponatremia, hypokalemia, hypomagnesemia, persistent atrial fibrillation, hypertension, hyperlipidemia, chronic alcohol use, chronic tobacco use presents
due to worsening shortness of breath at rest and with activity as well as weight gain. Patient was admitted August 2024 due to acute confusion and symptomatic hyponatremia and underwent treatment at that time. Additionally, she had new diagnosis
of atrial fibrillation for which she was started on anticoagulation. Patient was recently seen in office 07/09/2025. At that time, patient had reported worsening shortness of breath and weight gain for which her primary care physician had started
Lasix 40 mg p.o. daily. Patient took that for 1 week with reported improvement at office visit however patient states today that she did not experience much of an improvement. In office, it was recommended that she increase her Lasix dosing to 40
mg twice daily for 3 days followed by 40 mg daily. Additionally was recommended that she reduce fluid and sodium intake. With this change in frequency, she reported no significant change. Overall, she was reported an increase in weight of roughly
30 pounds over the last month. She denies any chest pain or tightness. She reports shortness of breath at rest and with exertion. She notes lower extremity swelling which has worsened. Additionally, her reports increased fatigue by
patient. She denies any lightheadedness, dizziness, near-syncope, syncope, PND, orthopnea, or weakness. Patient is a daily smoker (10 cigarettes/day, for a 'long time'), daily alcohol 1-2 drinks, no illicits. Patient is a positive family history
of heart disease.
Progress Note - An Employee Sponsor Or Advocate And
Subjective
Date of Service: July 22, 2025
Patient thinks she has lost about 30 pounds and overall feels improved compared to admission
Objective
Labs:
07/21/25 05:23
07/22/25 05:14
Labs
Hgb 12.8 g/dL (12.0-16.0) 07/21/25 05:23
Hct 37.2 % (37.0-47.0) 07/21/25 05:23
Plt Count 175 10^3/uL (130-400) 07/21/25 05:23
PT 17.8 Sec (11.4-14.6) H 07/21/25 05:23
INR 1.46 07/21/25 05:23
APTT 39.4 Sec (23.4-35.0) H 07/16/25 20:24
Sodium 128 mmol/L (135-145) L 07/22/25 05:14
Potassium 4.0 mmol/L (3.5-5.1) 07/22/25 05:14
BUN 11 mg/dl (7-17) 07/22/25 05:14
Creatinine 0.6 mg/dL (0.6-1.0) 07/22/25 05:14
Glucose 92 mg/dl (70-99) 07/22/25 05:14
Vital Signs and I&O:
Vital Signs
Temp Pulse Resp BP Pulse Ox
98.2 F 85 16 128/73 98
07/22/25 07:27 07/22/25 07:49 07/22/25 07:37 07/22/25 07:49 07/22/25 07:37
Vital Signs
Temp Pulse Resp BP Pulse Ox
98.2 F 85 16 128/73 98
07/22/25 07:27 07/22/25 07:49 07/22/25 07:37 07/22/25 07:49 07/22/25 07:37
Intake & Output
07/20/25 07/21/25 07/22/25 07/23/25
06:59 06:59 06:59 06:59
Intake Total 960 / 960 720 / 720 520 / 520
Balance 960 / 960 720 / 720 520 / 520
Physical Exam
Physical Exam
GEN: NAD, AAO x 3
LUNGS: RA. No audible wheeze
CV: A-fib on telemetry. Irreg, S1/S2, no murmur
EXT: No edema B/L LE
NEURO: Gross non-focal
SKIN: Warm, dry, no rash
--- NOTE | 2025-07-22 09:39 | W.PN.PUL3 ---
Today's Communication / Plan
-
Doing well in terms of treatment, can continue inhalers at discharge
Continue diuresis per cardiology service, planning for DCCV in a.m.
From our standpoint, can evaluate for discharge planning once cleared by cardiology
We will arrange outpatient follow-up
Assessment
-
59-year-old female with a past medical history of chronic HFpEF, hypertension, mixed hyperlipidemia, A-fib and Eliquis, history of hyponatremia and cognitive impairment who presents with weight gain + SOB. Of note, she saw her corrugator machine operator on
07/09/2025 and was started on 40 mg Lasix due to volume overload. Advised to limit her sodium and fluid intake. She is also had 3 weeks of lower extremity edema + abdominal distention. Her HCTZ had been discontinued in August due to hyponatremia.
She was saturating 90% on room air, pulse rate 70, respiratory rate 16 and BP 106/69. Serum sodium found to be 112 and previously she was 129 in August 2024. Chloride level also low at 76, with serum osmolarity 235. Nephrology consulted and
patient recommended to start 3% hypertonic saline. She was admitted to the ICU for further management and poker dealer service consulted for additional recommendations.
Acute on chronic hyponatremia with hypervolemic, hypotonic hyponatremia (baseline sodium ~129)
Acute on chronic HFpEF with mild acute interstitial edema seen on CXR
Acute respiratory failure with hypoxia due to acute cardiogenic pulmonary edema
Hypomagnesemia
New RV dysfunction and severe PH on ECHO
Chronic conditions PLANT BUYER:
Right eye cataract
History of hyponatremia
History of cognitive impairment
Chronic HFpEF
Chronic transaminitis
A-fib on Eliquis
Hypertension
Hyperlipidemia
Plan:
Asked for re-eval given new ECHO findings of severe PH and RV dysfunction
She denies any prior known history of lung disease
Prior CT imaging reviewed and negative
Given her new findings, it is reasonable for us to repeat full pulmonary evaluation
We will start with CTA and PFTs
CTA with minor GGOs, no PE
PFTs showing moderate COPD, started on inhalers
RHC reviewed 07/21-wedge 23, PA mean 30, PVR 2.49 (mild elevation)
PA mean seems to have improved compared to echo
CHF component
Continue with diuresis, currently on 80 mg Lasix once daily
Replete electrolytes while being diuresed, with goal K>4, Mg>2
proBNP elevated at 5570
trend UOP and strict I/O
A-fib, planning for DCCV in a.m.
History of hyponatremia, in the past and treated at the time of her admission
Fluid restriction per nephrology
Maintain SpO2 >90-94%, weaning down supplemental O2 flow rate as tolerated
Recommend ambulatory pulse oximetry prior to discharge, unless she is on room air, saturating 96% or above and rest
- Maintain MAP>65
- Trend LFTs
- Maintain euglycemia with goal BG 140-180
- Trend H/H and transfuse if needed to keep Hb>7g/dL; keep plt>20k, unless there is concern for bleeding then keep plt>50k
- prn nebulized bronchodilators - not currently bronchospastic
- Incentive spirometer encouraged 10x per hour for at least 4 hrs a day
- PT/OT
- Fluid and sodium restricted diet
- DVT ppx: Eliquis
We will follow
Data:
CXR 07/16/2025:
1. Moderate to severe cardiomegaly with interval increase in size of the heart since August 2024. Diagnostic possibilities are (1) a CARDIOMYOPATHY or (2) less likely pericardial effusion.
2. Elevated pulmonary venous pressures.
3. Mild asymmetric perihilar opacity in the left upper lobe. Diagnostic possibilities are (1) left upper lobe pneumonia or (2) mild asymmetric alveolar pulmonary edema.
ECHO 07/16/25: 1. Ejection fraction is 50-55% by visual assessment.
2. Normal left ventricular size, wall thickness and systolic function. No regional wall motion abnormalities are seen.
3. Compared to a prior transthoracic echocardiogram study from August 2024 which was reviewed, There is no significant change. Right ventricle was reported as normal in size and function in August 2024 but appears severely dilated and hypokinetic
as on current study.
4. D-shaped septum in diastole consistent with right ventricular pressure overload.
5. Indexed left atrial volume is severely abnormal (>48 ml/m2).
6. Right ventricular cavity size is severely dilated.
7. Right ventricular systolic function is severely decreased.
8. Severe tricuspid regurgitation.
9. Severely dilated right atrium.
ECHO 08/18/24: Normal left ventricular size and systolic function. No regional wall motion abnormalities are seen. LV ejection fraction is 55-60% by Welch's method of discs. Mild concentric left ventricular hypertrophy.
Normal right ventricular size. Normal right ventricular systolic function. Indexed LA volume is moderately abnormal (42-48 mL/m2). Moderately dilated right atrium. Mild-moderate tricuspid regurgitation. Estimated pulmonary artery pressure of 25-30
mmHg. Assuming a right atrial pressure of 3 mmHg. No prior study available for comparison.
CT Chest 07/19/25: Patchy groundglass opacities in both upper lobes concerning for developing pneumonia versus interstitial lung disease. No pulmonary embolus.
Mild bilateral hilar lymphadenopathy likely reactive. Cardiomegaly. Severe atherosclerotic vascular disease.
-----
Total time spent today was 51 minutes for this encounter. Time includes reviewing laboratory test/imaging results, reviewing pertinent medical records, obtaining and reviewing medical history, performing an appropriate exam, ordering medications,
tests and procedures. Time also includes documentation of this encounter, coordinating patient care and communicating with other healthcare professionals. Total time does not include separately billed tests performed on this date of service.
Subjective Data
-
Date of Service:
Date of Service: July 22, 2025
Chief Complaint: Pulmonary Follow Up
Subjective:
Doing well, stable on room air
No new complaints
Objective Data
Data Reviewed
Vital Signs / I&O / Oxygen:
Vital Signs
Temp Pulse Resp BP Pulse Ox
98.2 F 85 16 128/73 98
07/22/25 07:27 07/22/25 07:49 07/22/25 07:37 07/22/25 07:49 07/22/25 07:37
Intake and Output
07/21/25 07/22/25 07/23/25
06:59 06:59 06:59
Intake Total 720 / 720 520 / 520
Balance 720 / 720 520 / 520
SaO2 98
Nasal Cannula flow liters per 2
minute
Physical Exam
General: Comfortable and Other (NAD)
HEENT: Normocephalic, Anicteric and Moist Mucous Membranes
Cardiovascular: S1-S2 and Regular Rhythm
Respiratory: Clear and Non-Labored Respirations
GI: Soft, Non Distended and Non Tender
Neurology: Awake, Alert, Oriented and No Motor Deficits
Skin: Warm, Dry and Good Color
Labs/Micro/Reports
Lab Data
07/21/25 05:23
07/22/25 05:14
--- NOTE | 2025-07-22 10:24 | W.PN.HOSP.TC ---
Today's Communication/Plan
-
IV Lasix. Amiodarone. Plan for cardioversion tomorrow
Assessment / Plan
Assessment / Plan
Physical exam:
General: Acutely ill
HEENT: Normocephalic, Atraumatic and Moist Mucous Membranes
Respiratory: Coarse crackles bilaterally; Negative Wheezes or Rhonchi
Cardiac: Irregular rate and rhythm and S1/S2
GI: Soft, Nontender and Nondistended
Musculoskeletal: No Clubbing, No Cyanosis. There is bilateral lower extremity edema
Neuro: Awake, Alert and Oriented, no gross neurological deficit. No tremors, nystagmus, or tongue fasciculation
Psych: Calm and normal judgment and insight
A/P:
Acute hypoxic respiratory failure:
Wean oxygen as able
Continue IV diuresis
CTA (No VTE while on Eliquis), ABG (with mild hypoxia and hypercapnia) and PFTs per pulmonary
Cardiology and pulmonary following
Discussed with at bedside yesterday
Discharge planning once cleared by cardiology-Reached out to cardiology and they are planning to restart IV diuresis and plan for cardioversion tomorrow.
Acute on chronic HFpEF:
IV Lasix 80 mg daily
Discontinued amlodipine
GDMT started spironolactone and Farxiga and continue lisinopril 40 mg p.o. daily
Reviewed echo results
Status post left and right heart cath and it shows no obstructive CAD and elevated right and left-sided filling pressures with normal cardiac output.
Cardiology checked chromogranin A and 24-hour urine 5-HIAA
Severe hyponatremia:
Fluctuating
Received 3% saline
Patient received IV Lasix as well
Today sodium up to 128 and previously went up to 130 (sodium has been as low as 112).
Continue oral fluid restriction
Appreciated nephrology input
Hypokalemia:
Repleted and trend
Replace Mg
Persistent atrial fibrillation:
On rate control with atenolol 50 mg twice a day
On anticoagulation, back on Eliquis 5 mg twice a day
Started on amiodarone 400 mg 3 times daily
Plan for cardioversion tomorrow
Hypertension:
Continue home antihypertensive
Hyperlipidemia:
Continue home statin
Alcohol use disorder:
Continue thiamine and folic acid for 3 to 5 days
Watch for signs of alcohol withdrawal
DVT prophylaxis:
Eliquis
CODE STATUS:
Full code
Total time spent on today's encounter was 52 minutes which included time spent in counseling the patient/family regarding diagnosis and treatment plan as listed above, goals of care, and symptom management. Case was discussed with nursing staff,
specialists, and care coordinators/case management. All labs and imaging personally reviewed by me. Remainder the time spent in detailed review of previous records, lab data, imaging, and other medical provider documentation.
Anticipated Discharge: Within 24 hours
Subjective/Interval History
-
Date of Service: July 22, 2025
Patient feels better overall today. Less shortness of breath. No chest pain.
Objective Data
-
Labs:
Laboratory Results
07/22/25
05:14
Sodium 128 L
Potassium 4.0
Chloride 96 L
Carbon Dioxide 25
BUN 11
Creatinine 0.6
Glucose 92
Calcium 9.4
Vital Signs:
Vital Signs
Temp Pulse Resp BP Pulse Ox
98.2 F 85 16 128/73 98
07/22/25 07:27 07/22/25 07:49 07/22/25 07:37 07/22/25 07:49 07/22/25 07:37
I&O
07/21/25 07/22/25 07/23/25
06:59 06:59 06:59
Intake Total 720 / 720 520 / 520
Balance 720 / 720 520 / 520
[2025-07-22 11:04] VITALS: BP 124/73
[2025-07-22 11:54] LABS: 24 Hour Urine Total Volume 1900 mL; 5HIAA, 24 Hour Urine 3 mg/d (0-15); 5HIAA, Urine 1.6 mg/L; 5HIAA/Creatinine Ratio 7 mg/gCR (0-14); Creatinine, Urine 24 Hour 418 mg/d (500-1400); Creatinine, Urine per Volume 22 mg/dL; Urine Collection Length 24 hr
--- NOTE | 2025-07-22 12:34 | W.PN.NEPH.PH ---
Today's Communication / Plan
-
Lasix
Assessment/Plan
-
Impression:
Hyponatremia (112)
History of hypertension
History of paroxysmal atrial fibrillation
Volume overload
Dyslipidemia
Hypertension
Plan:
Sodium at 129 stable
PAR[facility]/CV in a.m. per cardiology
amiodarone 400 mg TID
Restart Lasix 80 mg IV daily, PCWP was 23 on [facility] yesterday
follow BMP
wean O2 supplemental
FR
-
-
Date of Service: July 22, 2025
CC / HPI / ROS
-
Chief Complaint:
Hyponatremia
History of Present Illness:
Serum sodium down to 129
Hemodynamically stable
Review of Systems:
Grossly nonoliguric
no SOB
Weights up
Labs
-
Labs:
WBC 7.4 10^3/uL (4.8-10.8) 07/21/25 05:23
RBC 4.01 10^6/uL (4.20-5.40) L 07/21/25 05:23
Hgb 12.8 g/dL (12.0-16.0) 07/21/25 05:23
Hct 37.2 % (37.0-47.0) 07/21/25 05:23
Plt Count 175 10^3/uL (130-400) 07/21/25 05:23
Sodium 128 mmol/L (135-145) L 07/22/25 05:14
Potassium 4.0 mmol/L (3.5-5.1) 07/22/25 05:14
Chloride 96 mmol/L (98-107) L 07/22/25 05:14
Carbon Dioxide 25 mmol/L (22-30) 07/22/25 05:14
BUN 11 mg/dl (7-17) 07/22/25 05:14
Creatinine 0.6 mg/dL (0.6-1.0) 07/22/25 05:14
eGFR > 60.00 07/22/25 05:14
Glucose 92 mg/dl (70-99) 07/22/25 05:14
Calcium 9.4 mg/dl (8.4-10.2) 07/22/25 05:14
Phosphorus 2.9 mg/dl (2.5-4.5) 07/18/25 05:43
Yeg-Y-Ujwsddnwewt Pept 4590 pg/ml 07/18/25 04:16
Albumin 3.6 g/dl (3.5-5.0) 07/21/25 05:23
Physical Exam
-
Vital Signs:
Vital Signs
Temp Pulse Resp BP Pulse Ox
98.4 F 71 18 124/73 96
07/22/25 11:04 07/22/25 11:04 07/22/25 11:04 07/22/25 11:04 07/22/25 11:04
Cardiovascular:: Regular rate and rhythm
Respiratory:: Bilateral: Coarse
Lung Excursion:: Normal
Abdomen:: Nontender and Soft
Bowel Sounds:: Normal
Extremity Edema:: None: Bilateral:
[2025-07-22] MEDS: LASIX 80 MG IV (12:52)
[2025-07-22] MEDS: PACERONE 400 MG PO ×3 (12:54→21:05)
[2025-07-22 15:09] VITALS: BP 125/64
--- NOTE | 2025-07-22 17:22 | CM ---
Spoke with patient in room .
She is scheduled for [facility] in am .
Cardiology involved.
Pt offered VN at dc she declined .
PLAN Home no needs
[2025-07-22] MEDS: LIPITOR 10 MG PO (17:24)
[2025-07-22 19:42] VITALS: BP 105/65
[2025-07-22 22:53] VITALS: BP 117/70
[2025-07-23 02:54] VITALS: BP 110/73
[2025-07-23 05:59] LABS: Hematocrit 40.4 % (37.0-47.0); Hemoglobin 14.1 g/dL (12.0-16.0); Mean Corp Hgb Conc. 34.9 g/dL (33.0-37.0); Mean Corpuscular Volume 91.8 fL (81.0-99.0); Platelet Count 183 10^3/uL (130-400); Red Cell Dist. Width 12.9 % (11.5-14.5)
[2025-07-23 06:00] VITALS: BMI 27.2
[2025-07-23 06:06] LABS: Blood Urea Nitrogen 11 mg/dl (7-17); Calcium 9.5 mg/dl (8.4-10.2); Carbon Dioxide 25 mmol/L (22-30); Chloride 97 mmol/L (98-107); Estimated Creatinine Clearance 95 ml/min; Glucose 96 mg/dl (70-99); Magnesium 2.0 mg/dl (1.6-2.3); Potassium 3.9 mmol/L (3.5-5.1); Sodium 129 mmol/L (135-145); eGFR > 60.00
[2025-07-23] MEDS: ADVAIR HFA 115/21 MCG INHALER 2 PUFF INH (07:29)
[2025-07-23] MEDS: SPIRIVA RESPIMAT 2.5 MCG 2 PUFF INH (07:29)
[2025-07-23 07:31] VITALS: BP 133/84
[2025-07-23] MEDS: VITAMIN B1 100 MG PO (08:46)
[2025-07-23] MEDS: PACERONE 400 MG PO (08:46)
[2025-07-23] MEDS: TENORMIN 50 MG PO (08:46)
[2025-07-23] MEDS: ELIQUIS 5 MG PO (08:46)
[2025-07-23] MEDS: ZESTRIL 40 MG PO (08:47)
[2025-07-23] MEDS: FARXIGA 10 MG PO (08:47)
[2025-07-23] MEDS: MAGNESIUM OXIDE 400 MG PO (08:47)
[2025-07-23] MEDS: FOLVITE 1 MG PO (08:47)
[2025-07-23] MEDS: ALDACTONE 12.5 MG PO (08:47)
--- NOTE | 2025-07-23 11:02 | W.PN.HOSP.TC ---
Today's Communication/Plan
-
Cardioversion. Discharge planning today
Assessment / Plan
Assessment / Plan
Physical exam:
General: No acute distress
HEENT: Normocephalic, Atraumatic and Moist Mucous Membranes
Respiratory: Coarse crackles bilaterally; Negative Wheezes or Rhonchi
Cardiac: Irregular rate and rhythm and S1/S2
GI: Soft, Nontender and Nondistended
Musculoskeletal: No Clubbing, No Cyanosis. There is bilateral lower extremity edema
Neuro: Awake, Alert and Oriented, no gross neurological deficit. No tremors, nystagmus, or tongue fasciculation
Psych: Calm and normal judgment and insight
A/P:
Acute hypoxic respiratory failure:
Back to room air
Continue diuresis
CTA (No VTE while on Eliquis), ABG (with mild hypoxia and hypercapnia) and PFTs per pulmonary
Cardiology and pulmonary following
Discussed with at bedside today
Discussed with cardiology who cleared her for discharge after cardioversion
Acute on chronic HFpEF:
Switch to oral Lasix 80 mg p.o. daily
Discontinued amlodipine
GDMT started spironolactone and Farxiga and continue lisinopril 40 mg p.o. daily
Reviewed echo results
Status post left and right heart cath and it shows no obstructive CAD and elevated right and left-sided filling pressures with normal cardiac output.
Cardiology checked chromogranin A and 24-hour urine 5-HIAA
Severe hyponatremia:
Fluctuating
Received 3% saline
Patient received IV Lasix as well
Today sodium up to 129 and previously went up to 130 (sodium has been as low as 112).
Continue oral fluid restriction
Appreciated nephrology input
Hypokalemia:
Repleted and trend
Replace Mg
Persistent atrial fibrillation:
On rate control with atenolol 50 mg twice a day
On anticoagulation, back on Eliquis 5 mg twice a day
Started on amiodarone 400 mg 3 times daily
Plan for cardioversion tomorrow
Hypertension:
Continue home antihypertensive
Hyperlipidemia:
Continue home statin
Alcohol use disorder:
Continue thiamine and folic acid for 3 to 5 days
Watch for signs of alcohol withdrawal
DVT prophylaxis:
Eliquis
CODE STATUS:
Full code
Total time spent on today's encounter was 35 minutes which included time spent in counseling the patient/family regarding diagnosis and treatment plan as listed above, goals of care, and symptom management. Case was discussed with nursing staff,
specialists, and care coordinators/case management. All labs and imaging personally reviewed by me. Remainder the time spent in detailed review of previous records, lab data, imaging, and other medical provider documentation.
Anticipated Discharge: Today
Subjective/Interval History
-
Date of Service: July 23, 2025
Feels better overall. Wants to go home
Objective Data
-
Labs:
Laboratory Results
07/23/25
05:20
WBC 7.3
Hgb 14.1
Hct 40.4
Plt Count 183
Sodium 129 L
Potassium 3.9
Chloride 97 L
Carbon Dioxide 25
BUN 11
Creatinine 0.6
Glucose 96
Calcium 9.5
Vital Signs:
Vital Signs
Temp Pulse Resp BP Pulse Ox
97.5 F 81 16 133/84 99
07/23/25 07:31 07/23/25 07:33 07/23/25 07:33 07/23/25 07:31 07/23/25 07:33
I&O
07/22/25 07/23/25 07/24/25
06:59 06:59 06:59
Intake Total 520 / 520 860 / 860
Balance 520 / 520 860 / 860
[2025-07-23 11:05] VITALS: BP 141/86
--- NOTE | 2025-07-23 11:33 | W.PN.CARDCBS ---
Addendum entered and electronically signed by Arnaud Cardona MD 07/23/25 14:33:
I saw and examined the patient.
The Spray Machine Tender's note was reviewed and I agree with the note.
Comment: Briefly, 59-year-old woman past medical history of heart failure with preserved ejection fraction and persistent atrial fibrillation who presents in acute decompensated heart failure
Echocardiogram here with preserved LV function but decreased RV systolic function and severe tricuspid regurgitation
Underwent L/R heart catheterization 07/21/2025 which showed nonobstructive coronary disease as well as elevated left and right sided filling pressures
Appears euvolemic on exam today and weight is down to 168 pounds which is lowest on record
Open transition to oral Lasix 80 mg daily
As atrial fibrillation likely contributed to her heart failure decompensation underwent PAR[facility]/direct-current cardioversion earlier today to restore normal sinus rhythm which was successful
Continue amiodarone for now. Ideally would use short-term as a bridge to ablation.
Eliquis for risk reduction of cardioembolic stroke
Stable for discharge from my perspective. We will arrange outpatient follow-up with primary furnace firer Dr. Ramírez.
Original Note:
Today's Communication / Plan
-
Transition to PO lasix 80mg daily
s/p successful PARISH/CV this AM
Continue amiodarone 200mg BID for 1 month at discharge, then decrease to 200mg daily thereafter
Continue atenolol 50mg BID
Continue Eliquis 5mg BID
Continue lisinopril, spironolactone, farxiga.
Follow up arranged.
Impression / Plan
-
Slicing Machine Operator: Dr. Ramírez
Impression:
Acute on chronic HFpEF
Dilated, hypokinetic RV on echo 07/16/2025
Persistent atrial fibrillation
Chronic Eliquis OAC
Hyponatremia
Hypokalemia
HTN
HLD
Chronic alcohol use disorder
Chronic tobacco use disorder
Pulmonary nodules
Nonobstructive CAD by cardiac cath 07/21/2025
Echo 08/18/2024: EF 55 to 60%, mild concentric LVH, moderately dilated RA, mild to moderate TR, PAP 25 to 30 mmHg
Echo 07/16/2025: EF 50-55% visually, 46% by Welch's, severely hypokinetic and dilated right ventricle, D shaped septum in diastole consistent with RV pressure overload, severe TR
Echo 07/20/2025: EF 50 to 55%, D-shaped septum in diastole consistent with RV volume overload, RV moderately dilated with mild to moderate decrease in RV systolic function, aortic sclerosis without stenosis, severe TR with PAP 35 mmHg
Plan:
-Presented with SOB at rest and weight gain despite uptitration of OP diuretics. ProBNP 5570.
-Diuresing with IV lasix 80mg daily earlier in admission, stopped by nephrology 07/19. PCWP was 23 mmHg by RHC 07/21 and IV lasix restarted at 80mg daily on 07/22.
-Weight down 23 lbs this admission, down to 168 lbs on 07/23.
-Creat stable at 0.6 on 07/23. Appears improved, can likely transition to PO lasix 80mg daily in AM. Was taking lasix 40mg daily prior to admission.
-EF preserved by echo 07/20 at 50-55% but RV dysfunction noted.
-Nonobstructive CAD noted on cath 07/21.
-Persistent atrial fibrillation noted. New to amiodarone this admission and underwent successful PAR[facility]/CV this AM 07/23.
-Continue amiodarone 200mg BID at time of discharge. Will reduce to 200mg daily after 1 month.
-Continue Eliquis 5mg BID.
-Continue atenolol 50mg BID, lisinopril 40mg daily, spironolactone 12.5mg daily, and Farxiga 10mg daily.
-Patient is undergoing evaluation for carcinoid with 24 hour urine 5-HIAA and chromogranin A level which were normal. Carcinoid workup being performed due to changes seen on echo including thickening of the tricuspid valve leaflets.
-Continue atorvastatin 10mg daily.
-Cardiology follow up arranged.
HPI: Patient is a very pleasant 59-year-old female with past medical history significant for hyponatremia, hypokalemia, hypomagnesemia, persistent atrial fibrillation, hypertension, hyperlipidemia, chronic alcohol use, chronic tobacco use presents
due to worsening shortness of breath at rest and with activity as well as weight gain. Patient was admitted August 2024 due to acute confusion and symptomatic hyponatremia and underwent treatment at that time. Additionally, she had new diagnosis
of atrial fibrillation for which she was started on anticoagulation. Patient was recently seen in office 07/09/2025. At that time, patient had reported worsening shortness of breath and weight gain for which her primary care physician had started
Lasix 40 mg p.o. daily. Patient took that for 1 week with reported improvement at office visit however patient states today that she did not experience much of an improvement. In office, it was recommended that she increase her Lasix dosing to 40
mg twice daily for 3 days followed by 40 mg daily. Additionally was recommended that she reduce fluid and sodium intake. With this change in frequency, she reported no significant change. Overall, she was reported an increase in weight of roughly
30 pounds over the last month. She denies any chest pain or tightness. She reports shortness of breath at rest and with exertion. She notes lower extremity swelling which has worsened. Additionally, her reports increased fatigue by
patient. She denies any lightheadedness, dizziness, near-syncope, syncope, PND, orthopnea, or weakness. Patient is a daily smoker (10 cigarettes/day, for a 'long time'), daily alcohol 1-2 drinks, no illicits. Patient is a positive family history
of heart disease.
Progress Note - Slicing Machine Operator
Subjective
Date of Service: July 23, 2025
Symptomatically improved. No SOB or chest pain.
Objective
Labs:
07/23/25 05:20
07/23/25 05:20
Labs
Hgb 14.1 g/dL (12.0-16.0) 07/23/25 05:20
Hct 40.4 % (37.0-47.0) 07/23/25 05:20
Plt Count 183 10^3/uL (130-400) 07/23/25 05:20
PT 17.8 Sec (11.4-14.6) H 07/21/25 05:23
INR 1.46 07/21/25 05:23
APTT 39.4 Sec (23.4-35.0) H 07/16/25 20:24
Sodium 129 mmol/L (135-145) L 07/23/25 05:20
Potassium 3.9 mmol/L (3.5-5.1) 07/23/25 05:20
BUN 11 mg/dl (7-17) 07/23/25 05:20
Creatinine 0.6 mg/dL (0.6-1.0) 07/23/25 05:20
Glucose 96 mg/dl (70-99) 07/23/25 05:20
Vital Signs and I&O:
Vital Signs
Temp Pulse Resp BP Pulse Ox
97.6 F 72 18 141/86 97
07/23/25 11:05 07/23/25 11:05 07/23/25 11:05 07/23/25 11:05 07/23/25 11:05
Vital Signs
Temp Pulse Resp BP Pulse Ox
97.6 F 72 18 141/86 97
07/23/25 11:05 07/23/25 11:05 07/23/25 11:05 07/23/25 11:05 07/23/25 11:05
Intake & Output
07/21/25 07/22/25 07/23/25 07/24/25
06:59 06:59 06:59 06:59
Intake Total 720 / 720 520 / 520 860 / 860
Balance 720 / 720 520 / 520 860 / 860
Physical Exam
Physical Exam
GEN: NAD, AAO x 3
LUNGS: No audible wheeze
CV: Irreg, S1/S2, no murmur
EXT: No edema B/L LE
NEURO: Gross non-focal
SKIN: Warm, dry, no rash
--- NOTE | 2025-07-23 12:20 | W.DCSUMMARY ---
Discharge Summary
Discharge Data
Date of Admission: 07/16/25
Date of Discharge: 07/23/25
Total time spent discharging patient (in min): 35
-
Pending Results: No
Hospital Course
Patient 59 years old female history of hypertension, hyperlipidemia, A-fib, alcohol use disorder came into the hospital with heart failure exacerbation and symptomatic hyponatremia. Cardiology and nephrology consulted. Patient was treated with IV
diuresis and she had negative balance throughout this hospital stay. She was advised strict alcohol cessation. Pulmonary was consulted as well. Patient had a CTA negative for PE and PFTs consistent with COPD. Patient had a cardiac cath on 07/21
with no obstructive CAD and increased right and left-sided filling pressures with normal cardiac output. She was subsequently diuresed. She also underwent electrical cardioversion for her A-fib and she went into normal sinus rhythm. Her sodium
has improved from her baseline and it is 129 upon discharge and will need to be continue to follow-up as outpatient. Cardiology has cleared her for discharge today. Otherwise she is hemodynamically stable and feeling symptomatically much improved.
She will be discharged in relatively stable condition today.
Discharge duration: 35 minutes
Discharge Plan
-
Patient Disposition: Home (Routine Discharge)
Discharge Diagnosis/Procedures: Acute hypoxic respiratory failure. Acute on chronic diastolic congestive failure. Severe hyponatremia. Persistent atrial fibrillation status post electrical cardioversion converted to normal sinus rhythm. Status
post cardiac cath 07/21. Alcohol use disorder.
Diet: Low Cholesterol
Additional Diets: Complete cessation of alcohol intake.
Activity: As tolerated
Blood Work: Please PCP to order CBC, BMP within 1 week
Specialty Instructions: Weigh Daily- Call MD for wt gain/loss 3 lbs overnight/5 lbs in 1 week
Instructions: *DCA Heart Failure Instructions
Stand Alone Forms: DC Instructions- Cath/EP Lab
Referrals:
Mitzy Sandoval PA-C [Specified Professional Personl, Cardiology] - 08/06/25 7:40 am
Referral Note: You have a follow up visit w/ Dr. Ramírez's Mitzy BACON, at the [facility]. Please call with questions.
Gail Yeboah DO [Active, Pulmonary Medicine] - in three to four weeks
Referral Note: PFT
Charlotte Arevalo DO [Family Provider, Family Practice] - in less than 1 week
Additional Discharge Medication Instructions: You will be on amiodarone 200 mg twice a day for 1 month and afterwards you will need a prescription for 200 mg once a day indefinitely.
Prescriptions:
New
spironolactone 25 mg Tablet
12.5 mg PO DAILY 30 Days Qty: 15 0RF
dapagliflozin propanediol 10 mg Tablet
10 mg PO DAILY 30 Days Qty: 30 0RF
magnesium oxide 400 mg (241.3 mg magnesium) Tablet
400 mg PO BID 7 Days Qty: 14 0RF
furosemide [Lasix] 80 mg tablet
80 mg PO DAILY Qty: 30 0RF
amiodarone 200 mg tablet
200 mg PO BID 30 Days Qty: 60 0RF
Continued
atorvastatin [Lipitor] 10 mg Tablet
10 mg PO QPM
lisinopril 40 mg Tablet
40 mg PO DAILY
atenolol 50 mg Tablet
50 mg PO BID
Eliquis 5 mg Tablet
5 mg PO BID Qty: 60 0RF
vitamin E 670 mg (1,000 unit) Capsule
670 mg PO DAILY
therapeutic multivitamin Tablet
1 tab PO DAILY
acetaminophen 650 mg Tablet Extended Release
650 mg PO Q12H PRN (Reason: PRN)
ascorbic acid (vitamin C) [Vitamin C] 500 mg Tablet
500 mg PO DAILY
cholecalciferol (vitamin D3) [Vitamin D3] 50 mcg (2,000 unit) Tablet
50 mcg PO DAILY
Discontinued
amlodipine [Norvasc] 10 mg Tablet
10 mg PO DAILY
furosemide 40 mg Tablet
40 mg PO DAILY
Discharge Orders:
Discharge Patient (As Directed); Ordered 07/23/25
Ordered By: Titus Stewart
Discharge Date and Time
Discharge Date/Time: 07/23/25 15:03
Print Language: CZECH
[2025-07-23] MEDS: LASIX 80 MG IV (12:28)
[2025-07-23 12:43] VITALS: BP 143/80
[2025-07-23] MEDS: PREVNAR 20 0.5 ML IM (13:31)
[2025-07-23] MEDS: FLUZONE (6 mos+) 2025-2026 FORMULA 0.5 ML IM (13:37)
--- NOTE | 2025-07-23 14:15 | CM ---
MD entered order for discharge.
Pt said she is ready for discharge
Pt offered VN at dc she declined .
PLAN Home no needs
--- NOTE | 2025-07-26 10:20 | W.HF.CON ---
Heart Failure
- LV Function
Left ventricular function study result: LV Ejection fraction >/= 50%
Ejection Fraction Percentage: 50-55
- ARNI
Patient already on ARNI: No
Heart Failure ARNI Not Indicated: LV Ejection Fraction >/= 40%
- ACEI/ARB
Patient already on ACEI/ARB: Yes
- Beta Prince
Patient already on Evidence Based Beta Prince: No
Heart Failure Evidence Based Beta Prince Not Indicated: LV Ejection Fraction > 40%
- Mineralocorticord Receptor Antagonist
Patient already on MRA: Yes
- SGLT-2 Inhibitor
Patient already on SGLT-2 Inhibitor: Yes
- Afib Anticoagulation
Patient already on Anticoagulation for Afib: Yes
- NYHA CHF Classification
NYHA CHF Classification Level: Class III - Symptoms w/ min exertion, interferes w/ nml daily activity
- ACC/AHA Stage
ACC/AHA Stage: Stage C: Symptomatic Heart Failure
== END 2025-07-23 15:03 | disposition home or self-care (01) | DRG 286 ==
LOC: 3 WEST ACU 16:20
PROVIDERS: Emergency Medicine; Internal Medicine; Internal Medicine Interventional Cardiology; Nurse Practitioner Family; Physician Assistant; Physician Assistant Medical; Registered Nurse; Specialist; ADMITTING PHYSICIAN Hospitalist; ATTENDING PHYSICIAN Hospitalist; CONSULT PHYSICIAN Internal Medicine Cardiovascular Disease; CONSULT PHYSICIAN Internal Medicine Critical Care Medicine; CONSULT PHYSICIAN Specialist; EMERGENCY PHYSICIAN Emergency Medicine; FAMILY PHYSICIAN Family Medicine
PROC: B2011ZZ Plain Radiography of Multiple Coronary Arteries using Low Osmolar Contrast (ICD-10-PCS; 2025-07-21)
PROC: 4A023N8 Measurement of Cardiac Sampling and Pressure, Bilateral, Percutaneous Approach (ICD-10-PCS; 2025-07-21)
PROC: 5A2204Z Restoration of Cardiac Rhythm, Single (ICD-10-PCS; 2025-07-23)
PROC: B24BZZ4 Ultrasonography of Heart with Aorta, Transesophageal (ICD-10-PCS; 2025-07-23)
PROC: 3E02340 Introduction of Influenza Vaccine into Muscle, Percutaneous Approach (ICD-10-PCS; 2025-07-23)
DX: I11.0 Hypertensive heart disease with heart failure (principal); I50.33 Acute on chronic diastolic (congestive) heart failure; J96.01 Acute respiratory failure with hypoxia; E87.1 Hypo-osmolality and hyponatremia; I48.19 Other persistent atrial fibrillation; F10.10 Alcohol abuse, uncomplicated; F17.210 Nicotine dependence, cigarettes, uncomplicated; Z79.899 Other long term (current) drug therapy; Z79.01 Long term (current) use of anticoagulants; Z83.3 Family history of diabetes mellitus; Z82.49 Family history of ischemic heart disease and other diseases of the circulatory system; K76.1 Chronic passive congestion of liver; E87.6 Hypokalemia; E78.2 Mixed hyperlipidemia; E83.42 Hypomagnesemia; I25.10 Atherosclerotic heart disease of native coronary artery without angina pectoris; Z23 Encounter for immunization
CPT/HCPCS: 36600; 71046; 71275; 80048; 80051; 80053; 80061; 81003; 81015; 81050; 82248; 82570; 82805; 83497; 83735; 83880; 83930; 83935; 84100; 84156; 84300; 84443; 84484; 85025; 85027; 85610; 85730; 86316; 90656; 90677; 93005; 93306; 93308; 93312; 93320; 93325; 93460; 94060; 94640; 94727; 94729; 96365; 99152; 99153; 99291; 99406; C1769; G0008; G0009; Q9967